=== PATIENT | female | born 1965 | race Caucasian/White ===

== ENCOUNTER 2019-01-14 22:13 | Emergency (ER) | payer OTHER ==
[~2019-01-14] VITALS: Ht 167.6 cm; Wt 86.2 kg
[~2019-01-14 22:13] MED LIST: ALPRAZOLAM0.5 MG PO; CLARITIN10 M2 PO; OMEPRAZOLE20 MG PO
--- OUTSIDE RECORDS SUMMARY | 2019-01-14 22:16 | XMS ---
PreManage Notification: ROSS BUTCHER Security Consultative Sales Associate Events No recent Security Events currently on file CRITERIA MET - PDM - [facility] - 2 Visits in 30 Days CARE PROVIDERS WALLACE CHUA [facility] 10/10/2017-Current PHONE: Unknown ARLENE Shah Physician Batter Depositor Current PHONE: [phone] LAURA LANDRUM Physician Batter Depositor Current PHONE: [phone] BLANQUITA [facility]: Critical 01/22/2018-Current Chargeback MEDICAL Access PHONE: [phone] Hayes Pepe Counselor: Mental Health 03/14/2015-Current PHONE: [phone] LAURA LANDRUM Primary Care Current PHONE: Unknown BRIANA TAYLOR Primary Care 01/23/2018-Current JAZMIN JUARES PHONE: [phone] ARLENE Shah Primary Care Current PHONE: Unknown HARSHIL GONSALEZ Primary Care 10/10/2017-Current PHONE: [phone] [facility] Care 05/10/2016-11/28/2015 [facility] PHONE: [phone] HARSHIL GONSALEZ Primary Care Current PHONE: Unknown BK TAPIA Primary Care Current PHONE: Unknown Hayes Pepe Primary Care 03/14/2015-Current PHONE: [phone] PATRICIA ALBRIGHT Primary Care Current PHONE: Unknown ELFEGO ABBASI Primary Care Current PHONE: Unknown DOMENICA RÍOS Primary Care Current PHONE: Unknown JAZZ VALLADARES Primary Care Current PHONE: Unknown Patricia Albright Primary Care Current PHONE: Unknown [facility] Primary Care 04/14/2015-Current [facility] \[facility]\ [facility]ILY [facility] PHONE: [phone] BROOK MEDINA Primary [facility] Current PHONE: Unknown Vel has no Care Guidelines for this patient. Km VISIT COUNT (12 MO.) [address] [place] [address] AKIRA Carrillo TOTAL 5 NOTE: Visits indicate total known visits. ED/UCC VISIT TRACKING (12 MO.) 01/14/2019 22:13 [facility] [place] TYPE: Emergency COMPLAINT: - ABDOMINAL PAIN 01/10/2019 10:03 [facility] [place] TYPE: Emergency DIAGNOSES: - VOMITING BLOOD 10/20/2018 15:52 [facility] [place] TYPE: Emergency DIAGNOSES: - Alcoholic gastritis without bleeding - Alcohol abuse, uncomplicated - Alcohol dependence with withdrawal, uncomplicated - ABD PAIN 10/19/2018 15:58 [facility] [place] TYPE: Emergency DIAGNOSES: - Alcohol use, unspecified with intoxication, uncomplicated - DEHYDRATION 05/17/2018 10:41 [facility] [place] TYPE: Emergency DIAGNOSES: - Diverticulosis of large intestine without perforation or abscess without bleeding - Pure hyperglyceridemia - POSS PANCREATITIS - Alcohol use, unspecified with intoxication, unspecified - Encounter for screening mammogram for malignant neoplasm of breast - Acute gastritis without bleeding INPATIENT VISIT TRACKING (12 MO.) No inpatient visits to display in this time frame [email or web address]
[2019-01-14] MEDS ORDERED: BUPROPION HCL200 M1 PO (22:36)
[2019-01-14] MEDS ORDERED: CHLORDIAZEPOXID25 MG PO (22:37)
[2019-01-14] MEDS ORDERED: TRAZODONE HCL100 MG PO (22:37)
[2019-01-14] MEDS ORDERED: CARAFATE1 GM/10 ML PO (22:38)
[2019-01-15] MEDS ORDERED: FLAGYL500 MG PO (01:49)
[2019-01-15] MEDS ORDERED: NORCO 5-325 TA1 EACH PO (01:49)
[2019-01-15] MEDS ORDERED: CIPRO500 MG PO (01:49)
== END 2019-01-15 02:05 | disposition home or self-care (01) ==
LOC: ED 22:13
DX: K57.90 Diverticulosis of intestine, part unspecified, without perforation or abscess without bleeding (principal); K21.9 Gastro-esophageal reflux disease without esophagitis; F32.9 Major depressive disorder, single episode, unspecified; F41.9 Anxiety disorder, unspecified; F17.200 Nicotine dependence, unspecified, uncomplicated; Z88.2 Allergy status to sulfonamides; Z79.899 Other long term (current) drug therapy
CPT/HCPCS: 74177; 80053; 81001; 83690; 85025; 96361; 99284-25; J1200; J1885; J2405; J3010; J7030; Q9967

== ENCOUNTER 2019-03-04 13:49 | Emergency (ER) | payer OTHER ==
[~2019-03-04] VITALS: Ht 167.6 cm; Wt 86.2 kg
--- OUTSIDE RECORDS SUMMARY | ~2019-03-04 | XMS | Clinical Summary ---
Demographics + + + | Address | [address] | | | [place] [address] | + + + | Home Phone | | + + + | Preferred Language | Unknown | + + + | Marital Status | Single | + + + | Catholic Affiliation | NON | + + + | Race | White | + + + | Ethnic Group | Not or | + + + Author + + + | Author | [facility] | + + + | Organization | [facility] | + + + | Address | Unknown | + + + | Phone | Unavailable | + + + Support + + +---------+ + | Name | Relationship | Address | Phone | + + +---------+ + | Compa Cristiana | ECON | Unknown | | + + +---------+ + Care Team Providers + +------+ + | Care Product Design Manager Name | Role | Phone | + +------+ + | Unknown | PCP | Unavailable | + +------+ + Source Comments HAM is fully live on both [facility] and [facility] Allergies Not on File Medications Not on file Active Problems Not on file Social History + +-------+ +--------+------+ | Tobacco Use | Types | Packs/Day | Years | Date | | | | | Used | | + +-------+ +--------+------+ | Never Assessed | | | | | + +-------+ [...] recent travel history available. | + + Last Filed Vital Signs Not on file Plan of Treatment +--------+---------+ + + + | Date | Type | Specialty | Care Team | Description | +--------+---------+ + + + | 04/11/ | Office | Orthopedics | Narciso Evangelista MD | | | 2019 | Visit | | [address] | | | | | | [place], | | | | | | [place] [address] | | | | | | [phone] | | | | | | | | +--------+---------+ + + + + + + + + | Health Maintenance | Due Date | Last Done | Comments | + + + + + | Influenza (Flu) | Completed | 01/26/2019, 01/24/2017, | | | vaccination | | 05/23/2013, Additional history | | | | | exists | | + + + + + | Pneumococcal | Completed | 01/26/2019, 03/09/2018, | | | vaccination | | 02/20/2013, Additional history | | | | | exists | | + + + + + Results Not on filefrom Last 3 Months Insurance + +--------+ +--------+-------+---------+--------+ | Payer | Benefi | Subscriber | Effect | Phone | Address | Type | | | t Plan | ID | zena | | | | | | / | | Dates | | | | | | Group | | | | | | + +--------+ +--------+-------+---------+--------+ | FARM OWNER OPERATOR MEDICAID | FARM OWNER OPERATOR | xxxxxxxx | | | | Medica | | | EASTER | | 019-Pr | | | id | | | [place] | | esent | | | | + +--------+ +--------+-------+---------+--------+ + +--------+ +--------+ + + | Guarantor Name | Accoun | Relation to | Date | Phone | Billing Address | | | t Type | Patient | of | | | | | | | | | | + +--------+ +--------+ + + | Nuvia Zendejas | Person | Self [birth year] | | | al/Vincent | | 1965 | [phone] | [place] [address] | | | shani | | | 2 (Home) | | + +--------+ +--------+ + +"
--- OUTSIDE RECORDS SUMMARY | ~2019-03-04 | XMS | Encounter Summary ---
Demographics + + + | Address | [address] | | | [place] [address] | + + + | Home Phone | | + + + | Preferred Language | Unknown | + + + | Marital Status | | + + + | Latter Day Affiliation | Unknown | + + + | Race | Unknown | + + + | Ethnic Group | Unknown | + + + Author + + + | Author | [facility] | | | and [place] | + + + | Organization | [facility] | | | [...] Team Providers + +------+ + | Care Private Branch Exchange Operator Name | Role | Phone | + [...] | | test, | [place] | [address] | | | | | Chronic | [address] | Phone: | | | | | joint pain | Phone: | [phone] | | | | | | [phone] | Fax: | | | | | | | [phone] | +--------+--------+ + + + + Encounter Details +--------+---------+ + + + | Date | Type | Department | Care Team | Description | +--------+---------+ + + + | 01/24/ | Office | [facility] | Tamara Way MD | Polyarthralgia | | 2019 | Visit | RHEUMATOLOGY [address] | (Primary Dx); | | [address] | [address], [place] | Primary | | | | [place] | [address] | osteoarthritis | | | | [address] | | involving multiple | | | | [phone] | | joints | +--------+---------+ + + [...] + +---------+ + | Alcohol Use | Drinks/We | oz/Week | Comments | | | ek | | | + + +---------+ + | Not [...] Filed Vital Signs + + + + | Vital Sign | Reading | Time Taken | + + + + | Blood Pressure | 125/84 | 01/24/2019744 PDT | + + + + | Pulse | 76 | 01/24/2019744 PDT | + + + + | Temperature | 36.7 C (98 F) | 01/24/2019744 PDT | + + + + | Respiratory Rate | - | - | + + + + | Oxygen Saturation | - | - | + + + + | Inhaled Oxygen | - | - | | Concentration | | | + + + + | Weight | 85 kg (187 lb 6.4 | 01/24/2019 0745 PDT | | | oz) | | + + + + | Height | - | - | + + + + | Body Mass Index | 27.67 | 11/16/2018 1313 PDT | + + + + documented in this encounter Patient Instructions Patient Instructions Tiffany Irene, Chemical Process Engineer - 01/24/2019 7:50 PDTWe hope th at you have experienced exceptional care today and that you found our service to be courteou s and helpful. If you have any questions or need medication refills you can send us a message/request u StyleZen or call our office at [phone]. To reach my MA-C type extension [phone]. If you are unable to reach a nurse during clinic hours, please leave a detailed message. We check our messages often and return calls in a timely manner during clinic hours. Orders for labs or imaging: Please remember that will only call you if something of concern needs to be addressed, otherwise all result will be discussed at your next offic e visit. You can also look at your results on Kchart. If you are experiencing an emergency, please call 911 documented in this encounter Progress Notes Tamara Way MD - 01/24/2019 0750 PDTFormatting of this note might be different from the or iginal. Subjective: Reason for referral: positive dsDNA History of presenting Illness: Nuvia Zendejas is a 53 y.o. female polysubstance abuse, Chronic pain, reactive airway wi who came to rheumatology clinic for new [...] hepatitis C virus (HCV)/(AIDS), L ymphoma, Sarcoidosis, Ygvmu-buhtaz-ybqm disease, Recent use of medications with anticholiner [...] mg per tablet Take 1 tablet by m outh. meloxicam (MOBIC) 15 mg tablet Take 15 mg [...] H/O psychiatric care H/O: pneumonia Suicide attempt (HCC) Past Surgical History: Procedure Laterality Date SECTION [...] normal Imaging: The X-rays were reviewed in [facility] Lab Review: The labs were reviewed in [facility] Assessment and Plan: Nuvia was seen today [...] symptoms This progress note was dictated using [employer]anted [employer] voice recognition software. Document was revie wed at time of dictation but pxebs-z-inwf errors may be present. Please call with any quest ions or clarifications docuromeo nick in this encounter Plan of Treatment +--------+---------+ + + + | Date | Type | Specialty | Care Team | Description | +--------+---------+ + + + | 03/22/ | Office | Oncology | Kimberly, | | | 2019 | Visit | | Juan R Gray MD | | | | | | [address] | | | | | | [place] | | | | | | [address] | | | | | | | | +--------+---------+ + + + + +--------+ + + | Name | Priori | Associated Diagnoses | Order Schedule | | | ty | | | + +--------+ + + | XR Hand Left 2 Vw | Routin | Polyarthralgia | Expected: | | | e | | 01/24/2019, Expires: | | | | | 01/25/2020 | + +--------+ + + | XR Hand Right 2 Vw | Routin | Polyarthralgia | Expected: | | | e | | 01/24/2019, Expires: | | | | | 01/25/2020 | + +--------+ + + | XR Foot Left 3 + Vw | Routin | Polyarthralgia | Expected: | | | e | | 01/24/2019, Expires: | | | | | 01/25/2020 | + +--------+ + + | XR Foot Right 3 + Vw | Routin | Polyarthralgia | Expected: | | | e | | 01/24/2019, Expires: | | | | | 01/25/2020 | + +--------+ + + documented as of this encounter Results SS-B LA Ab, IgG, Serum (01/24/2019 8:13 PDT) + + + + + + | Component | Value | Ref Range | Performed | Pathologist | | | | | At | Signature | + + + + + + | SS-B | <0.2Comment: Testing | 0.0 - 0.9 AI | REFERENCE | | | Autoantibod | performed at [facility], [address] | | LAB | | | y | [facility] | | [place] | | | | [place] [address] | | LABORATORY | | + + + + + + + + | Specimen | + + | Blood | + + + + + + + | Performing | Address | City/State/Zipcode | Phone Number | | Organization | | | | + + + + + | REFERENCE LAB | [address] | [place] [address] | [phone] | | [facility] | Blvd[address] | | | | LABORATORY | | | | + + + + + | REFERENCE LAB | [address] | [place] [address] | | | [place] | Blvd[address] | | | | LABORATORY | | | | + + + + + SS-A RO Ab,IgG, Serum (01/24/2019 8:13 PDT) + + + + + + | Component | Value | Ref Range | Performed | Pathologist | | | | | At | Signature | + + + + + + | SS-A | <0.2Comment: Testing | 0.0 - 0.9 AI | REFERENCE | | | Autoantibod | performed at [facility], [address] | | LAB | | | y | [facility] | | [place] | | | | [place] [address] | | LABORATORY | | + + + + + + + + | Specimen | + + | Blood | + + + + + + + | Performing | Address | City/State/Zipcode | Phone Number | | Organization | | | | + + + + + | REFERENCE LAB | [address] | [place] [address] | [phone] | | [facility] | Blvd[address] | | | | LABORATORY | | | | + + + + + | REFERENCE LAB | [address] | [place] [address] | | | [facility] | Blvd[address] | | | | LABORATORY | | | | + + + + + CCP Antibodies, IgG IgA (01/24/2019 8:13 PDT) + + + + + + | Component | Value | Ref Range | Performed | Pathologist | | | | | At | Signature | + + + + + + | Cyclic | 9Comment: | 0 - 19 units | REFERENCE | | | citrullinat | | | LAB | | | ed peptide | | | [facility] | | | Ab.IgA+IgG | | | LABORATORY | | | | Negative | | | | | | | | | | | | <20 | | | | | | | | | | | | Weak | | | | | | positive 20 - | | | | | | | | | | | | 39 | | | | | | | | | | | | Moderate | | | | | | positive 40 - | | | | | | 59 | | | | | | | | | | | | Strong | | | | | | positive | | | | | | >59Testing performed by | | | | | | [facility], [facility] | | | | | | [address] [address] | | | | | | [place] [address] | | | | + + + + + + + + | Specimen | + + | Blood | + + + + + + + | Performing | Address | City/State/Zipcode | Phone Number | | Organization | | | | + + + + + | REFERENCE LAB | [address] | [place] [address] | [phone] | | [facility] | Blvd. | | | | LABORATORY | | | | + + + + + | REFERENCE LAB | [address] | [place] [address] | | | [facility] | Blvd[address] | | | | LABORATORY | | | | + + + + + Sedimentation Rate (01/24/2019 8:13 PDT) + + + + + + | Component | Value | Ref Range | Performed | Pathologist | | | | | At | Signature | + + + + + + | ESR | 14Comment: Testing | 0 - 30 mm/Hr | REFERENCE | | | | performed at [facility];[address] | | LAB | | | | [place] | | [facility] | | | | [address];[place] [address] | | LABORATORY | | + + + + + + + + | Specimen | + + | Blood | + + + + + + + | Performing | Address | City/State/Zipcode | Phone Number | | Organization | | | | + + + + + | REFERENCE LAB | [address] [place] [address] | [place] [address] | [phone] | | [facility] | Blvd. | | | | LABORATORY | | | | + + + + + | REFERENCE LAB | [address] [place] [address] | [place] [address] | | | [facility] | Blvd. | | | | LABORATORY | | | | + + + + + C-Reactive Protein (01/24/2019 8:13 PDT) + + + + + + | Component | Value | Ref Range | Performed | Pathologist | | | | | At | Signature | + + + + + + | CRP | <0.3Comment: Testing | <0.5 mg/dL | REFERENCE | | | | performed at [facility];[address] | | LAB | | | | [place] | | [facility] | | | | [address];[place] [address] | | LABORATORY | | + + + + + + + + | Specimen | + + | Blood | + + + + + + + | Performing | Address | City/State/Zipcode | Phone Number | | Organization | | | | + + + + + | REFERENCE LAB | [address] | [place] [address] | [phone] | | [facility] | Blvd[address] | | | | LABORATORY | | | | + + + + + | REFERENCE LAB | [address] | [place] [address] | | | [facility] | Blvd. | | | | LABORATORY | | | | + + + + + Comprehensive Metabolic Panel (01/24/2019 8:13 PDT) + + + + + + [...] | | | | | performed at [facility];[address] | | | | | | [address] | | | | | | [address];[place] [address] | | | | | | | | | | + + + + + + + + | Specimen | + + | Blood | + + + + + + + | Performing | Address | City/State/Zipcode | Phone Number | | Organization | | | | + + + + + | REFERENCE LAB | [address] [place] [address] | [place] [address] | [phone] | | [facility] | Blvd[address] | | | | LABORATORY | | | | + + + + + | REFERENCE LAB | [address] [place] [address] | [place] [address] | | | [facility] | Blvd[address] | | | | LABORATORY | | | | + + + + + CBC with Differential (01/24/2019 8:13 PDT) + + + + + + [...] | | | Absolute | performed at [facility];[address] | [address] | LAB | | | | [facility] | | [place] | | | | [address]vd;[place] [address] | | LABORATORY | | + + + + + + + + | Specimen | + + | Blood | + + + + + + + | Performing | Address | City/State/Zipcode | Phone Number | | Organization | | | | + + + + + | REFERENCE LAB | [address] [place] [address] | [place] [address] | [phone] | | [facility] | Blvd. | | | | LABORATORY | | | | + + + + + | REFERENCE LAB | [address] [place] [address] | [place] [address] | | | [facility] | Blvd[address] | [...]
--- OUTSIDE RECORDS SUMMARY | ~2019-03-04 | XMS | Encounter Summary ---
Demographics + + + | Address | [address] | | | [place] [address] | + + + | Home Phone | | + + + | Preferred Language | Unknown | + + + | Marital Status | | + + + | Muslim Affiliation | Unknown | + + + | Race | Unknown | + + + | Ethnic Group | Unknown | + + + Author + + + | Author | [facility] | | | and [place] | + + + | Organization | [facility] | | | [...] Team Providers + +------+ + | Care Thermit Welding Machine Operator Name | Role | Phone | + +------+ + | Bhakti Dietz PA-C | PCP | | + +------+ + Encounter Details +--------+ + + + + | Date | Type | Department | Care Team | Description | +--------+ + + + + | 12/15/ | Orders Only | [facility] | Kimberly, | Other specified | | 2019 | | HEMATOLOGY AND | Juan R Gray MD | diseases of blood | | | | ONCOLOGY [place] | [address] | and blood-forming | | | | [address] | [place] | organs; Other | | | | [place], [place] | [address] | neutropenia (HCC) | | | | [address] | | | | | | [phone] | | | +--------+ + + + [...] | Oncology | Kimberly, | | | 2018 | Visit | | Juan R Gray MD | | | | | | [address] | | | | | | [place] | | | | | | [address] | | | | | | | | +--------+---------+ + + + + +--------+ + + | Name | Priori | Associated Diagnoses | Order Schedule | | | ty | | | + +--------+ + + | Vitamin B-12 and Folate | Routin | Other specified | Expected: | | | e | diseases of blood | 02/16/2019, Expires: | | | | and blood-forming | 11/17/2019 | | | | organs Other | | | | | neutropenia (HCC) | | + +--------+ + + | Ferritin | Routin | Other specified | Expected: | | | e | diseases of blood | 02/16/2019, Expires: | | | | and blood-forming | 11/17/2019 | | | | organs Other | | | | | neutropenia (HCC) | | + +--------+ + + | Iron and Iron Binding Capacity | Routin | Other specified | Expected: | | | e | diseases of blood | 02/16/2019, Expires: | | | | and blood-forming | 11/17/2019 | | | | organs Other | | | | | neutropenia (HCC) | | + +--------+ + + documented as of this encounter Visit Diagnoses + + | Diagnosis | + + | Other specified diseases of blood and blood-forming organs | + + | Other neutropenia (HCC) Other neutropenia | + + documented in this encounter"
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
--- OUTSIDE RECORDS SUMMARY | ~2019-03-04 | XMS | Encounter Summary ---
Demographics + + + | Address | [address] | | | [place] [address] | + + + | Home Phone | | + + + | Preferred Language | Unknown | + + + | Marital Status | | + + + | Worship Affiliation | Unknown | + + + | Race | Unknown | + + + | Ethnic Group | Unknown | + + + Author + + + | Author | [facility] | | | and [place] | + + + | Organization | [facility] | | | [...] Team Providers + +------+ + | Care Painter Helper Spray Name | Role | Phone | + [...] 2019 | | [address] | [place] | | | | | [place] | | | | | | [address] | | | | | | [phone] | | | +--------+ + + + [...] | | | | | | [place] | | | | | | [id number] | | | | | | | [...] encounter Results CBC with Differential (01/24/2019 8:13 PDT) + [...] | | | Absolute | performed at [facility];[address] | [address] | LAB | | | | [facility] | | [facility] | | | | Blvd;[place] [address] | | LABORATORY | | + + + + + + + + | Specimen | + + | Blood | + + + + + + + | Performing | Address | City/State/Zipcode | Phone Number | | Organization | | | | + + + + + | REFERENCE LAB | [address] [place] [address] | [place] [address] | [phone] | | [facility] | Blvd. | | | | LABORATORY | | | | + + + + + | REFERENCE LAB | [address] [place] [address] | [place] [address] | | | [facility] | Blvd. | [...] | | | | | | MDRD IDOK traceable | | | | | | equation.Testing | | | | | | performed at [facility];[address] | | | | | | [facility] | | | | | | [facility];[place] [address] | | | | | | | | | | + + + + + + + + | Specimen | + + | Blood | + + + + + + + | Performing | Address | City/State/Zipcode | Phone Number | | Organization | | | | + + + + + | REFERENCE LAB | [address] [place] [address] | [place] [address] | [phone] | | [facility] | Blvd. | | | | LABORATORY | | | | + + + + + | REFERENCE LAB | [address] [place] [address] | [place] [address] | | | [facility] | Blvd. | [...] REFERENCE | | | | performed at [facility];[address] | | LAB | | | | [place] | | [facility] | | | | Blvd;[place] [address] | | LABORATORY | | + + + + + + + + | Specimen | + + | Blood | + + + + + + + | Performing | Address | City/State/Zipcode | Phone Number | | Organization | | | | + + + + + | REFERENCE LAB | [address] | [place] [address] | [phone] | | [facility] | Blvd. | | | | LABORATORY | | | | + + + + + | REFERENCE LAB | [address] [facility] | [place] [address] | | | [facility] | Blvd. | [...] [facility] | | | | Blvd;[place] [address] | | LABORATORY | | + + + + + + + + | Specimen | + + | Blood | + + + + + + + | Performing | Address | City/State/Zipcode | Phone Number | | Organization | | | | + + + + + | REFERENCE LAB | [address] [place] [address] | [place] [address] | [phone] | | [facility] | Blvd. | | | | LABORATORY | | | | + + + + + | REFERENCE LAB | [address] [place] [address] | [place] [address] | | | [facility] | Blvd. | [...] by | | | | | | [facility], [facility] | | | | | | [place] | | | | | | [place] [address] | | | | + + + + + + + + | Specimen | + + | Blood | + + + + + + + | Performing | Address | City/State/Zipcode | Phone Number | | Organization | | | | + + + + + | REFERENCE LAB | [address] [facility] | [place] [address] | [phone] | | [facility] | Blvd. | | | | LABORATORY | | | | + + + + + | REFERENCE LAB | [address] [facility] | [place] [address] | | | [facility] | Blvd. | [...] | | | Autoantibod | performed at [facility], [address] | | LAB | | | y | [facility] | | [facility] | | | | [place] [address] | | LABORATORY | | + + + + + + + + | Specimen | + + | Blood | + + + + + + + | Performing | Address | City/State/Zipcode | Phone Number | | Organization | | | | + + + + + | REFERENCE LAB | [address] [place] [address] | [place] [address] | [phone] | | [facility] | Blvd. | | | | LABORATORY | | | | + + + + + | REFERENCE LAB | [address] [place] [address] | [place] [address] | | | [facility] | Blvd. | [...] | | | Autoantibod | performed at [facility], [address] | | LAB | | | y | [facility] | | [facility] | | | | [place] [address] | | LABORATORY | | + + + + + + + + | Specimen | + + | Blood | + + + + + + + | Performing | Address | City/State/Zipcode | Phone Number | | Organization | | | | + + + + + | REFERENCE LAB | [address] [facility] | [place] [address] | [phone] | | [facility] | Blvd. | | | | LABORATORY | | | | + + + + + | REFERENCE LAB | [address] [facility] | [place] [address] | | | [facility] | Blvd. | | | | LABORATORY | | | | + + + + + documented in this encounter Visit Diagnoses + + | Diagnosis | + + | Polyarthralgia Pain in joint, multiple sites | + + documented in this encounter"
--- OUTSIDE RECORDS SUMMARY | ~2019-03-04 | XMS | Clinical Summary ---
Demographics + + + | Address | [address] | | | [place] [address] | + + + | Home Phone | | + + + | Preferred Language | Unknown | + + + | Marital Status | Single | + + + | Congregation Affiliation | NON | + + + | Race | White | + + + | Ethnic Group | Not or | + + + Author + + + | Author | [facility] | + + + | Organization | [facility] | + + + | Address | Unknown | + + + | Phone | Unavailable | + + + Support + + +---------+ + | Name | Relationship | Address | Phone | + + +---------+ + | Compa Cristiana | ECON | Unknown | | + + +---------+ + Care Team Providers + +------+ + | Care Detective And Intelligence Analyst Name | Role | Phone | + +------+ + | Unknown | PCP | Unavailable | + +------+ + Source Comments HAM is fully live on both [facility] and [facility] InPatient.[facility] Allergies Not on File Medications Not [...] | | | | | [place], | | | | | | [place] [address] | | | | | | [phone] | | | | | | | [...] | | | + +--------+ +--------+-------+---------+--------+ | TEST [employer] MEDICAID | TEST BAKER | xxxxxxxx | | | | Medica [...] | 1965 | [phone] | [place] [address] | | | shani | | | 2 (Home) | | + +--------+ +--------+ + +"
--- OUTSIDE RECORDS SUMMARY | ~2019-03-04 | XMS | Encounter Summary ---
Demographics + + + | Address | [address] | | | [place] [address] | + + + | Home Phone | | + + + | Preferred Language | Unknown | + + + | Marital Status | | + + + | Jehovah'S Witness Affiliation | Unknown | + + + | Race | Unknown | + + + | Ethnic Group | Unknown | + + + Author + + + | Author | [facility] | | | and [place] | + + + | Organization | [facility] | | | [...] Team Providers + +------+ + | Care Ultra Sound Technician Name | Role | Phone | + [...] | | double | GAMA Sandhu | [address] | | | | | stranded DNA | [address] | [address] | | | | | antibody | St | [place] | | | | | test, | [place], [place] | [address] | | | | | Chronic | [address] | Phone: | | | | | joint pain | Phone: | [phone] | | | | | | [phone] | Fax: | | | | | | | [phone] | +--------+--------+ + + + + Encounter Details +--------+---------+ + + + | Date | Type | Department | Care Team | Description | +--------+---------+ + + + | 02/21/ | Office | [facility] | Roge Chow, | Polyarthralgia | | 2019 | Visit | RHEUMATOLOGY [address] | PA-C [address] | (Primary Dx); High | | | | [address] | risk medication use; | | | | [place] | [place] [address] | Osteoarthritis, | | | | [address] | [phone] | unspecified | | | | [phone] | | osteoarthritis type, | | | [...] | 86.2 kg (190 lb) | 02/21/2019 1322 PDT | + + + + | Height | - | - | + + + + | Body Mass Index | 28.06 | 11/16/2018 1313 PDT | + + + + documented in this encounter Patient Instructions Patient Instructions Tamara Boles, Mobile Unit Assistant - 02/21/2019 13:20 PDTWe hope t hat you have experienced exceptional care today and that you found our service to be courteo us and helpful. ? If you have any questions/concerns or need medication refills you can send us a message/r equest using [employer] or by calling our office at [phone]. o If you would like to reach my director medical writing, Paula Boles please call [phone] Ext: [phone] ? If you are unable to reach [...] can also look at your results on [employer]. If you are experiencing an emergency, please call 911 documented in this encounter Progress Notes Roge Chow PA-C - 02/21/2019 1320 PDT Subjective: Patient ID: Nuvia Zendejas is a [...] hepatitis C virus (HCV)/(AIDS), L ymphoma, Sarcoidosis, Bwhrr-qmsoyn-rjuj disease, Recent use of medications with anticholiner [...] numbness. Psychiatric/Behavioral: The patient is not nervous/anxious. I, Roge Salvos PA-C, reviewed the above ROS. Past Medical History: Diagnosis Date Alcoholism (HCC) Arthritis Chemical dependency ([facility]) Depression H/O bronchitis H/O psychiatric care H/O: pneumonia Suicide attempt ([facility]) Current Outpatient Medications: albuterol 90 mcg/puff inhaler, [...] | Wt 86.2 kg (190 lb) | [place] stfeeding? No | BMI 28.06 kg/m Physical [...] 360 hour(s)). [facility] as well as chart notes [...] involved in today's visit. Procedure Documentation: Procedures documented i n this encounter Plan of Treatment +--------+---------+ + [...] [place] | | | | | | [address] | | | | | | | [...]
--- OUTSIDE RECORDS SUMMARY | ~2019-03-04 | XMS | Encounter Summary ---
Demographics + + + | Address | [address] | | | [place] [address] | + + + | Home Phone | | + + + | Preferred Language | Unknown | + + + | Marital Status | | + + + | Restoration Affiliation | Unknown | + + + | Race | Unknown | + + + | Ethnic Group | Unknown | + + + Author + + + | Author | [facility] | | | and [place] | + + + | Organization | [facility] | | | [...] Team Providers + +------+ + | Care Access Tech Name | Role | Phone | + +------+ + | Bhakti Dietz PA-C | PCP | | + +------+ + Encounter Details +--------+ + + + + | Date | Type | Department | Care Team | Description | +--------+ + + + + | 12/15/ | Orders Only | [facility] | Kimberly, | Other specified | | 2019 | | HEMATOLOGY AND | Juan R Gray MD | diseases of blood | | | | ONCOLOGY [place] | [address] | and blood-forming | | | | [address] | [place] | organs; Other | | | | [place], [place] | [address] | neutropenia (HCC) | | | | [address] | | | | | | [phone] | | | +--------+ + + + [...] [place] | | | | | | [address] | | | | | | | [...]
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
--- OUTSIDE RECORDS SUMMARY | ~2019-03-04 | XMS | Encounter Summary ---
Demographics + + + | Address | [address] | | | [place] [address] | + + + | Home Phone | | + + + | Preferred Language | Unknown | + + + | Marital Status | | + + + | Lutheran Affiliation | Unknown | + + + | Race | Unknown | + + + | Ethnic Group | Unknown | + + + Author + + + | Author | [facility] | | | and [place] | + + + | Organization | [facility] | | | [...] Team Providers + +------+ + | Care Separator Tender Name | Role | Phone | [...] 2019 | | [address] | Artist Agent | | | | | [place] | | | | | | [address] | | | | | | [phone] | | | +--------+ + + + [...] [place] | | | | | | [id number] | | | | | | | [...] | | | Absolute | performed at [facility];[address] | K/uL | LAB | | | | [facility] | | [facility] | | | | Blvd;[place] [address] | | LABORATORY | | + + + + + + + + | Specimen | + + | Blood | + + + + + + + | Performing | Address | City/State/Zipcode | Phone Number | | Organization | | | | + + + + + | REFERENCE LAB | [address] [place] [address] | [place] [address] | [phone] | | [facility] | Blvd. | | | | LABORATORY | | | | + + + + + | REFERENCE LAB | [address] [place] [address] | [place] [address] | | | [facility] | Blvd. | [...] | | | | | | MDRD IDWV traceable | | | | | | equation.Testing | | | | | | performed at [facility];[address] | | | | | | [facility] | | | | | | [facility];[place] [address] | | | | | | | | | | + + + + + + + + | Specimen | + + | Blood | + + + + + + + | Performing | Address | City/State/Zipcode | Phone Number | | Organization | | | | + + + + + | REFERENCE LAB | [address] [place] [address] | [place] [address] | [phone] | | [facility] | Blvd. | | | | LABORATORY | | | | + + + + + | REFERENCE LAB | [address] [place] [address] | [place] [address] | | | [facility] | Blvd. | [...] REFERENCE | | | | performed at [facility];[address] | | LAB | | | | [place] | | [facility] | | | | Blvd;[place] [address] | | LABORATORY | | + + + + + + + + | Specimen | + + | Blood | + + + + + + + | Performing | Address | City/State/Zipcode | Phone Number | | Organization | | | | + + + + + | REFERENCE LAB | [address] | [place] [address] | [phone] | | [facility] | Blvd. | | | | LABORATORY | | | | + + + + + | REFERENCE LAB | [address] [facility] | [place] [address] | | | [facility] | Blvd. | [...] [facility] | | | | Blvd;[place] [address] | | LABORATORY | | + + + + + + + + | Specimen | + + | Blood | + + + + + + + | Performing | Address | City/State/Zipcode | Phone Number | | Organization | | | | + + + + + | REFERENCE LAB | [address] [place] [address] | [place] [address] | [phone] | | [facility] | Blvd. | | | | LABORATORY | | | | + + + + + | REFERENCE LAB | [address] [place] [address] | [place] [address] | | | [facility] | Blvd. | [...] | | | | | | [facility] [place] | | | | | | [place] | | | | | | [place] [address] | | | | + + + + + + + + | Specimen | + + | Blood | + + + + + + + | Performing | Address | City/State/Zipcode | Phone Number | | Organization | | | | + + + + + | REFERENCE LAB | [address] [facility] | [place] [address] | [phone] | | [facility] | Blvd. | | | | LABORATORY | | | | + + + + + | REFERENCE LAB | [address] [facility] | [place] [address] | | | [facility] | Blvd. [...] | | | Autoantibod | performed at [facility], [address] | | LAB | | | y | [facility] | | [facility] | | | | [place] [address] | | LABORATORY | | + + + + + + + + | Specimen | + + | Blood | + + + + + + + | Performing | Address | City/State/Zipcode | Phone Number | | Organization | | | | + + + + + | REFERENCE LAB | [address] [place] [address] | [place] [address] | [phone] | | [facility] | Blvd. | | | | LABORATORY | | | | + + + + + | REFERENCE LAB | [address] [place] [address] | [place] [address] | | | [facility] | Blvd. | [...] | | | Autoantibod | performed at [facility], [address] | | LAB | | | y | [facility] | | [facility] | | | | [place] [address] | | LABORATORY | | + + + + + + + + | Specimen | + + | Blood | + + + + + + + | Performing | Address | City/State/Zipcode | Phone Number | | Organization | | | | + + + + + | REFERENCE LAB | [address] [facility] | [place] [address] | [phone] | | [facility] | Blvd. | | | | LABORATORY | | | | + + + + + | REFERENCE LAB | [address] [facility] | [place] [address] | | | [facility] | Blvd. | | | | LABORATORY | | | | + + + + + documented in this encounter Visit Diagnoses + + | Diagnosis | + + | Polyarthralgia Pain in joint, multiple sites | + + documented in this encounter"
--- OUTSIDE RECORDS SUMMARY | ~2019-03-04 | XMS | Encounter Summary ---
Demographics + + + | Address | [address] | | | [place] [address] | + + + | Home Phone | | + + + | Preferred Language | Unknown | + + + | Marital Status | | + + + | Pentecostal Affiliation | Unknown | + + + | Race | Unknown | + + + | Ethnic Group | Unknown | + + + Author + + + | Author | [facility] (Historical as of | | | 12-16-18) | + + + | Organization | [facility] (Historical as of | | | 12-16-18) | + + + | Address | Unknown | + + + | Phone | Unavailable | + + + Support + + +---------+ + | Name | Relationship | Address | Phone | + + +---------+ + | Compa Zendejas | ECON | Unknown | | + + +---------+ + Care Team Providers + +------+ + | Care Bedspread Inspector Name | Role | Phone | + +------+ + | Bhakti Dietz PA-C | PCP | | + +------+ + Reason for Visit + + + | Reason | Comments | + + + | Referral | | + + + Encounter Details +--------+ + + + + | Date | Type | Department | Care Team | Description | +--------+ + + + + | 12/15/ | Documentati | [facility] | Rheum Referrals, | Referral | | 2019 | on Only | Rheumatology [address] | | | | | [address] | [place], [place] | | | | | [place] [address] | [address] | | | | | [phone] | | | +--------+ + + + [...] | | | + +---+---+---+ + + + | Sex Assigned at | Date Recorded | | | | + + + | Not on file | | + + + as of this encounter Plan of Treatment +--------+---------+ + + + | Date | Type | Specialty | Care Team | Description | +--------+---------+ + + + | 03/22/ | Office | Hematology and | Kimberly, | | | 2018 | Visit | Oncology | Juan R Gray MD | | | | | | [address] | | | | | | [place] | | | | | | [address] | | | | | | | | +--------+---------+ + + + | 05/28/ | Office | Rheumatology | Lalita Flaherty | | | 2020 | Visit | | MD Josh [address] | | | | | | [address] | | | | | | [place] [address] | | | | | | [phone] | | | | | | | | +--------+---------+ + + + as of this encounter Visit Diagnoses Not on filein this encounter"
--- OUTSIDE RECORDS SUMMARY | ~2019-03-04 | XMS | Encounter Summary ---
Demographics + + + | Address | [address] | | | [place] [address] | + + + | Home Phone | | + + + | Preferred Language | Unknown | + + + | Marital Status | | + + + | Hoahaoism Affiliation | Unknown | + + + | Race | Unknown | + + + | Ethnic Group | Unknown | + + + Author + + + | Author | [facility] [employer] [facility] (Historical as of | | | 12-16-18) | + + + | Organization | [facility] (Historical as of | | | 12-16-18) [...] Team Providers + +------+ + | Care Director Of Intercollegiate Athletics Name | Role | Phone | + [...] + + | 12/15/ | Documentati | [facility] | Rheum Referrals, | Referral | | 2019 | on Only | Rheumatology [address] | [address] | | | | | [address] | [address] [place], [place] | | | | | [place] [address] | [address] | | | | | [phone] | | | +--------+ + + + [...] [place] | | | | | | [address] | | | | | | | | +--------+---------+ + + + | 05/28/ | Office | Rheumatology | Lalita Flaherty | | | 2020 | Visit | | MD Josh [address] | | | | | | [address] | | | | | | [place] [address] | | | | | | [phone] | | | | | | | | +--------+---------+ + + + as of this encounter Visit Diagnoses Not on filein this encounter"
--- OUTSIDE RECORDS SUMMARY | ~2019-03-04 | XMS | Encounter Summary ---
Demographics + + + | Address | [address] | | | [place] [address] | + + + | Home Phone | | + + + | Preferred Language | Unknown | + + + | Marital Status | | + + + | Episcopalian Affiliation | Unknown | + + + | Race | Unknown | + + + | Ethnic Group | Unknown | + + + Author + + + | Author | [facility] | | | and [place] | + + + | Organization | [facility] | | | [...] Team Providers + +------+ + | Care Global Category Manager Name | Role | Phone | [...] | | test, | [place], [place] | [address] | | | | | Chronic | [address] | Phone: | | | | | joint pain | Phone: | [phone] | | | | | | [phone] | Fax: | | | | | | | [phone] | +--------+--------+ + + + + Encounter Details +--------+---------+ + + + | Date | Type | Department | Care Team | Description | +--------+---------+ + + + | 01/24/ | Office | [facility] | Tamara Way MD | Polyarthralgia | | 2019 | Visit | RHEUMATOLOGY [address] | (Primary Dx); | | | [address] | [address] [place], [place] | Primary | | | | [place], [place] | [address] | osteoarthritis | | | | [address] | | involving multiple | | | | [phone] | | joints | +--------+---------+ + + [...] encounter Patient Instructions Patient Instructions Tiffany Irene, Wire Wrapper Machine Operator - 01/24/2019 7:50 PDTWe hope th at you have experienced exceptional care today and that you found our service to be courteou s and helpful. If you have any questions or need medication refills you can send us a message/request u [employer] or call our office at [phone]. To reach my MA-C type extension [phone]. If you are unable to reach a [...] hepatitis C virus (HCV)/(AIDS), L ymphoma, Sarcoidosis, Vdkwx-wxtinq-fspq disease, Recent use of medications with anticholiner [...] normal Imaging: The X-rays were reviewed in [facility] Lab Review: The labs were reviewed in [facility] Assessment and Plan: Nuvia was seen [...] symptoms This progress note was dictated using [employer] voice recognition software. Document was revie wed at time of dictation but [id number]-[id number] errors may be present. Please call with [...] [place] | | | | | | [address] | | | | | | | [...] | | | Autoantibod | performed at [facility], [address] | | LAB | | | y | [facility] | | [place] | | | | [place] [address] | | LABORATORY | | + + + + + + + + | Specimen | + + | Blood | + + + + + + + | Performing | Address | City/State/Zipcode | Phone Number | | Organization | | | | + + + + + | REFERENCE LAB | [address] | [place] [address] | [phone] | | [facility] | Blvd[address] | | | | LABORATORY | | | | + + + + + | REFERENCE LAB | [address] [facility] | [place] [address] | | | [facility] | Blvd. | [...] | LAB | | | y | [facility] | | [place] | | | | [place] [address] | | LABORATORY | | + + + + + + + + | Specimen | + + | Blood | + + + + + + + | Performing | Address | City/State/Zipcode | Phone Number | | Organization | | | | + + + + + | REFERENCE LAB | [address] | [place] [address] | [phone] | | [facility] | Blvd. | | | | LABORATORY | | | | + + + + + | REFERENCE LAB | [address] [facility] [address] | [place] [address] | | | [facility] | Blvd. | [...] | | | | | | [facility], [facility] | | | | | | [place] | | | | | | [place] [address] | | | | + + + + + + + + | Specimen | + + | Blood | + + + + + + + | Performing | Address | City/State/Zipcode | Phone Number | | Organization | | | | + + + + + | REFERENCE LAB | [address] [facility] | [place] [address] | [phone] | | [facility] | Blvd. | | | | LABORATORY | | | | + + + + + | REFERENCE LAB | [address] [facility] | [place] [address] | | | [facility] | Blvd. | [...] REFERENCE | | | | performed at [facility];[address] | | LAB | | | | [place] | | [facility] | | | | [place]vd;[place] [address] | | LABORATORY | | + + + + + + + + | Specimen | + + | Blood | + + + + + + + | Performing | Address | City/State/Zipcode | Phone Number | | Organization | | | | + + + + + | REFERENCE LAB | [address] [place] [address] | [place] [address] | [phone] | | [facility] | Blvd. | | | | LABORATORY | | | | + + + + + | REFERENCE LAB | [address] [place] [address] | [place] [address] | | | [facility] | Blvd. | [...] REFERENCE | | | | performed at [facility];[address] | | LAB | | | | [place] | | [facility] | | | | Blvd;[place] [address] | | LABORATORY | | + + + + + + + + | Specimen | + + | Blood | + + + + + + + | Performing | Address | City/State/Zipcode | Phone Number | | Organization | | | | + + + + + | REFERENCE LAB | [address] [facility] | [place] [address] | [phone] | | [facility] | Blvd[address] | | | | LABORATORY | | | | + + + + + | REFERENCE LAB | [address] | [place] [address] | | | [facility] | Blvd. | [...] | | | | | performed at [facility];[address] | | | | | | [place] | | | | | | [place] [address] | | | | | | | | | | + + + + + + + + | Specimen | + + | Blood | + + + + + + + | Performing | Address | City/State/Zipcode | Phone Number | | Organization | | | | + + + + + | REFERENCE LAB | [address] [place] [address] | [place] [address] | [phone] | | [facility] | Blvd. | | | | LABORATORY | | | | + + + + + | REFERENCE LAB | [address] [place] [address] | [place] [address] | | | [facility] | Blvd. | [...] | | | Absolute | performed at [facility];[address] | [address] | LAB | | | | [facility] | | [facility] | | | | Blvd;[place] [address] | | LABORATORY | | + + + + + + + + | Specimen | + + | Blood | + + + + + + + | Performing | Address | City/State/Zipcode | Phone Number | | Organization | | | | + + + + + | REFERENCE LAB | [address] [place] [address] | [place] [address] | [phone] | | [facility] | Blvd. | | | | LABORATORY | | | | + + + + + | REFERENCE LAB | [address] [place] [address] | [place] [address] | | | [facility] | Blvd. | [...]
--- OUTSIDE RECORDS SUMMARY | ~2019-03-04 | XMS | Encounter Summary ---
Demographics + + + | Address | [address] | | | [place] [address] | + + + | Home Phone | | + + + | Preferred Language | Unknown | + + + | Marital Status | | + + + | Scientology Affiliation | Unknown | + + + | Race | Unknown | + + + | Ethnic Group | Unknown | + + + Author + + + | Author | [facility] | | | and Rub[place] | + + + | Organization | [facility] | | | [...] Team Providers + +------+ + | Care Flight Crew Scheduler Name | Role | Phone | + [...] | | double | GAMA Sandhu | [address] | | | | | stranded DNA | [address] | [address] | | | | | antibody | St | [place] | | | | | test, | [place], [place] | [address] | | | | | Chronic | [address] | Phone: | | | | | joint pain | Phone: | [phone] | | | | | | [phone] | Fax: | | | | | | | [phone] | +--------+--------+ + + + + Encounter Details +--------+---------+ + + + | Date | Type | Department | Care Team | Description | +--------+---------+ + + + | 02/21/ | Office | [facility] | Roge Chow, | Polyarthralgia | | 2019 | Visit | RHEUMATOLOGY [address] | PA-C [address] | (Primary Dx); High | | | | [address] | [address] | risk medication use; | | | | [place] | [place] [address] | Osteoarthritis, | | | | [address] | [phone] | unspecified | | | | [phone] | | osteoarthritis type, | | | [...] encounter Patient Instructions Patient Instructions Tamara Boles, Bookmaker Map - 02/21/2019 13:20 PDTWe hope t hat you have experienced exceptional care today and that you found our service to be courteo us and helpful. ? If you have any questions/concerns or need medication refills you can send us a message/r equest using [employer] or by calling our office at [phone]. o If you would like to reach my medical insurance claims processor, Paula Boles please call [phone] Ext: [phone] ? If you are unable to reach [...] can also look at your results on Olapic. If you are experiencing an emergency, please [...] hepatitis C virus (HCV)/(AIDS), L ymphoma, Sarcoidosis, Uztdq-vpxiet-xhjb disease, Recent use of medications with anticholiner [...] Diagnosis Date Alcoholism (HCC) Arthritis Chemical dependency ([facility]) Depression H/O bronchitis H/O psychiatric care H/O: pneumonia Suicide attempt ([facility]) Current Outpatient Medications: albuterol 90 mcg/puff [...] | Wt 86.2 kg (190 lb) | Mentor stfeeding? No | BMI 28.06 kg/m Physical [...] 360 hour(s)). Laboratory results were reviewed in [facility] as well as chart notes and [...] [place] | | | | | | [address] | | | | | | | [...]
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
[~2019-03-04 13:49] MED LIST changes: +BUPROPION HCL200 M1 PO; +CARAFATE1 GM/10 ML PO; +CHLORDIAZEPOXID25 MG PO; +CIPRO500 MG PO; +FLAGYL500 MG PO; +NORCO 5-325 TA1 EACH PO; +TRAZODONE HCL100 MG PO
--- OUTSIDE RECORDS SUMMARY | 2019-03-04 13:52 | XMS ---
PreManage Notification: ROSS BUTCHER Security Manager Secondary Events No recent Security Events currently on file CRITERIA MET - 6 ED Visits in 6 Months - [facility] - 3 Facilities in 90 Days - PDMP - [facility] - 2 Visits in 30 Days CARE PROVIDERS WALLACE CHUA [facility] Medicine 10/10/2017-Current PHONE: Unknown MINDA CROCKER Nurse Practitioner: Family Current PHONE: Unknown Niko Maddox Community Health Worker 03/02/2019-Current PHONE: [phone] KEV RICHARD Nurse Practitioner: Family Current PHONE: Unknown ARLENE Shah Physician Learning Support Resource Room Teacher Current PHONE: [phone] LAURA LANDRUM Physician Learning Support Resource Room Teacher Current PHONE: [phone] BLANQUITA [facility]: [facility] 01/22/2018-Current [facility] MEDICAL Access PHONE: [phone] LORENA HAAS Family Medicine Current PHONE: Unknown Hayes Pepe Counselor: Mental Health 03/14/2015-Current PHONE: [phone] FAUSTO LIZAMA [facility] Current PHONE: Unknown LAURA LANDRUM Primary Care Current PHONE: Unknown BRIANA TAYLOR Primary Care 01/23/2018-Current JAZMIN JUARES PHONE: [phone] PATRICIA JACOBS Primary Care Current PHONE: Unknown HARSHIL GONSALEZ Primary Care 10/10/2017-Current PHONE: [phone] [facility] 05/10/2016-11/28/2015 [facility] PHONE: [phone] HARSHIL GONSALEZ Primary [facility] Current PHONE: Unknown BK TAPIA Primary Care Current PHONE: Unknown Hayes Pepe Primary Care 03/14/2015-Current PHONE: [phone] ELFEGO ABBASI Primary Care Current PHONE: Unknown JAZZ VALLADARES Primary Care Current PHONE: Unknown Patricia Jacobs Primary Care Current PHONE: Unknown [facility] Care 04/14/2015-[facility]\ [facility] PHONE: [phone] CAROL DOE Primary Care Current PHONE: [phone] Vel has no Care Guidelines for this patient. Km VISIT COUNT (12 MO.) 1 [facility]. 6 [facility] 2 AKIRA Carrillo TOTAL 9 NOTE: Visits indicate total known visits. ED/UCC VISIT TRACKING (12 MO.) 03/04/2019 13:50 [facility] [place] TYPE: Emergency COMPLAINT: - URINATION PROBLEMS 03/01/2019 23:16 [facility] [place] TYPE: Emergency DIAGNOSES: - OVERDOSE 02/27/2019 20:22 [facility]. TYPE: Emergency COMPLAINT: - Abdominal Pain DIAGNOSES: - Retention of urine, unspecified - Alcohol use, unspecified with intoxication, uncomplicated - Unspecified abdominal pain - Abdominal Pain 2019 17:47 [facility] [place] TYPE: Emergency DIAGNOSES: - Poisoning by unsp narcotics, intentional self-harm, init - overdose - Alcohol use, unspecified with intoxication, uncomplicated 01/14/2019 22:13 [facility] [place] TYPE: Emergency COMPLAINT: - ABDOMINAL PAIN DIAGNOSES: - Anxiety disorder, unspecified - Other jail (current) drug therapy - Major depressive disorder, single episode, unspecified - Generalized abdominal pain - Dvrtclos of intest, part unsp, w/o perf or abscess w/o bleed - Nicotine dependence, unspecified, uncomplicated - Gastro-esophageal reflux disease without esophagitis - Allergy status to sulfonamides status 01/10/2019 10:03 [facility] [place] TYPE: Emergency DIAGNOSES: - VOMITING BLOOD 10/20/2018 15:52 [facility] [employer] [place] TYPE: Emergency DIAGNOSES: - Alcoholic gastritis without bleeding - Alcohol abuse, uncomplicated - Alcohol dependence with withdrawal, uncomplicated - ABD PAIN 10/19/2018 15:58 [facility] [place] TYPE: Emergency DIAGNOSES: - Alcohol use, unspecified with intoxication, uncomplicated - DEHYDRATION 05/17/2018 10:41 [facility] [place] TYPE: Emergency DIAGNOSES: - Dvrtclos of lg int w/o perforation or abscess w/o bleeding - Pure hyperglyceridemia - POSS PANCREATITIS - Alcohol use, unspecified with intoxication, unspecified - Encntr screen mammogram for malignant neoplasm of breast - Acute gastritis without bleeding INPATIENT VISIT TRACKING (12 MO.) No inpatient visits to display in this time frame [email or web address]
== END 2019-03-04 17:44 | disposition home or self-care (01) ==
LOC: ED 13:49
PROC: 0T9B70Z Drainage of Bladder with Drainage Device, Via Natural or Artificial Opening (ICD-10-PCS; principal; 2019-03-04)
PROC: 4A0D7LZ Measurement of Urinary Volume, Via Natural or Artificial Opening (ICD-10-PCS; 2019-03-04)
DX: N39.0 Urinary tract infection, site not specified (principal); F10.10 Alcohol abuse, uncomplicated; F17.200 Nicotine dependence, unspecified, uncomplicated; Z88.2 Allergy status to sulfonamides
CPT/HCPCS: 51702; 51798; 81001; 99283

== ENCOUNTER 2019-04-12 18:03 | Emergency (ER) | payer OTHER ==
[~2019-04-12] VITALS: Ht 167.6 cm; Wt 83.9 kg
--- OUTSIDE RECORDS SUMMARY | ~2019-04-12 | XMS | Encounter Summary ---
Demographics + + + | Address | [address] | | | [place] [address] | + + + | Home Phone | | + + + | Preferred Language | Unknown | + + + | Marital Status | Single | + + + | Zoroastrianism Affiliation | NON | + + + | Race | White | + + + | Ethnic Group | Not or | + + + Author + + + | Author | [facility] | + + + | Organization | [facility] | + + + | Address | Unknown | + + + | Phone | Unavailable | + + + Support + + +---------+ + | Name | Relationship | Address | Phone | + + +---------+ + | Compa Zendejas | ECON | Unknown | | + + +---------+ + Care Team Providers + +------+ + | Care Cash Grain Farmer Name | Role | Phone | + +------+ + | No Pcp Per Patient | PCP | Unavailable | + +------+ + Reason for Referral Physical Therapy (Routine) + +--------+ + + + + | Status | Reason | Specialty | Diagnoses / | Referred By | Referred To | | | | | Procedures | Contact | Contact | + +--------+ + + + + | New Request | | | Diagnoses | Evangelista, | [place] | | | | | Chronic low | MD Narciso | PT [place] | | | | | back pain, | [address] | [address] | | | | | unspecified | [facility] | [facility] | | | | | back pain | Rd | [address] | | | | | laterality, | [place], [place] | [place] | | | | | unspecified | [address] | [address] | | | | | whether | Phone: | Phone: | | | | | sciatica | [phone] | [phone] | | | | | present | Fax: | Fax: | | | | | Procedures | [phone] | [phone] | | | | | PHYSICAL | | | | | | | THERAPY | | | | | | | REFERRAL | | | + +--------+ + + + + Consultation (Routine) + +---------+ + + + + | Status | Reason | Specialty | Diagnoses / | Referred By | Referred To | | | | | Procedures | Contact | Contact | + +---------+ + + + + | New Request | Other | Pain | Diagnoses | Jean Carlos, | [facility] | | | | Management | Chronic low | MD Narciso | [address] | | | | | back pain, | [address] | [address] | | | | | unspecified | [facility] | Mailcode: | | | | | back pain | Rd | [facility] | | | | | laterality, | [place], [place] | for Health | | | | | unspecified | [address] | and Healing, | | | | | whether | Phone: | Building | | | | | sciatica | [phone] | [address] | | | | | present | Fax: | [place], [place] | | | | | Procedures | [phone] | [address] | | | | | CONSULT TO | | Phone: | | | | | PAIN | | [phone] | | | | | MANAGEMENT | | Fax: | | | | | | | [phone] | + +---------+ + + + + Reason for Visit + + + | Reason | Comments | + + + | New Patient Visit | | + + + | Low back pain | | + + + Intake Referral (Routine) + +--------+ + + + + | Status | Reason | Specialty | Diagnoses / | Referred By | Referred To | | | | | Procedures | Contact | Contact | + +--------+ + + + + | Authorized | | Spine | Diagnoses | | Jean Carlos, | | | | | Spinal | Navya, | MD Narciso | | | | | stenosis, | [place], | [address] | | | | | lumbar | [place] [address] | [address] | | | | | region | [address] | [address] [place], | | | | | without | [place], | [place] | | | | | neurogenic | [place] [address] | [address] | | | | | claudication | Phone: | Phone: | | | | | Procedures | [phone] | [phone] | | | | | ELVIS | Fax: | Fax: | | | | | | [phone] | [phone] | + +--------+ + + + + Encounter Details +--------+---------+ + + + | Date | Type | Department | Care Team | Description | +--------+---------+ + + + | 04/11/ | Office | Orthopaedics at | Narciso Evangelista MD | Chronic low back | | 2019 | Visit | [facility] [address] | [address] [place] | pain, unspecified | | | | Ave Mailcode: CH[address]A | [place], | back pain | | | | [place] for [facility] | [place] [address] | laterality, | | | | and Healing, | [phone] | unspecified whether | | | | Building | | sciatica present | | | | Floor [place], [place] | | (Primary Dx) | | | | [address] | | | | | | [phone] | | | +--------+---------+ + + + Social History + + + +--------+------+ | Tobacco Use | Types | Packs/Day | Years | Date | | | | | Used | | + + + +--------+------+ | Current Every Day | Cigarettes | | | | | Smoker | | | | | + + + +--------+------+ + +---+---+---+ | Smokeless Tobacco: | | | | | Never Used | | | | + +---+---+---+ + + +---------+ + | Alcohol Use | Drinks/Week | oz/Week | Comments | + + +---------+ + | Yes | | | | + + +---------+ + + + + + | Alcohol Habits | Answer | Date Recorded | + + + + | How often do you have a drink containing | Monthly or less | 04/11/2019 | | alcohol? | | | + + + + | How many drinks containing alcohol do you | Not asked | | | have on a typical day when you are | | | | drinking? | | | + + + + | How often do you have six or more drinks on | Not asked | | | one occasion? | | | + + + + + + + | Sex Assigned [...] + + + | Blood Pressure | 128/80 | 04/11/2019 10:26 AM | | | | | PST | | + + + + + | Pulse | 96 | 04/11/2019 10:26 AM | | | | | PST | | + + + + + | Temperature | 36.8 C (98.3 F) | 04/11/2019 10:26 AM | | | | | PST | | + + + + + | Respiratory Rate | 15 | 04/11/2019 10:26 AM | | | | | PST | | + + + + + | Oxygen Saturation | - | - | | + + + + + | Inhaled Oxygen | - | - | | | Concentration | | | | + + + + + | Weight | 83.9 kg (185 lb) | 04/11/2019 10:26 AM | | | | | PST | | + + + + + | Height | 167.6 cm (5' 6") | 04/11/2019 10:26 AM | | | | | PST | | + + + + + | Body Mass Index | 29.86 | 04/11/2019 10:26 AM | | | | | PST | | + + + + + documented in this encounter Plan of Treatment Not on filedocumented as of this encounter Visit Diagnoses + + | Diagnosis | + + | Chronic low back pain, unspecified back pain laterality, unspecified whether sciatica | | present - Primary | + + documented in this encounter
--- OUTSIDE RECORDS SUMMARY | ~2019-04-12 | XMS | Encounter Summary ---
Demographics + + + | Address | [address] | | | [place] [address] | + + + | Home Phone | | + + + | Preferred Language | Unknown | + + + | Marital Status | | + + + | Protestant Affiliation | Unknown | + + + | Race | Unknown | + + + | Ethnic Group | Unknown | + + + Author + + + | Author | [facility] | | | and [place] | + + + | Organization | [facility] | | | and [...] Team Providers + +------+ + | Care Dog Trainer Name | Role | Phone | + +------+ + | Bhakti Dietz PA-C | PCP | | + +------+ + Encounter Details +--------+ + + + + | Date | Type | Department | Care Team | Description | +--------+ + + + + | 12/15/ | Orders Only | [facility] | [place], | Other specified | | 2019 | | HEMATOLOGY AND | Juan R Gray MD | diseases of blood | | | | ONCOLOGY [place] | [address] | and blood-forming | | | | [address] | [place] | organs; Other | | | | [place], [place] | [address] | neutropenia (HCC) | | | | [address] | | | | | | [phone] | | | +--------+ + + + + Social History + +-------+ +--------+------+ | Tobacco Use | Types | Packs/Day | Years | Date | | | | | Used | | + +-------+ +--------+------+ | Current Every Day | | | | | | Smoker | | | | | + +-------+ +--------+------+ + + + | Sex Assigned at [...] + + documented as of this encounter Plan of Treatment +--------+---------+ + [...] [place] | | | | | | [address] | | | | | | | | +--------+---------+ + + + + +------+--------+ + + | Name | Type | Priori | Associated Diagnoses | Order Schedule | | | | ty | | | + +------+--------+ + + | Vitamin B-12 and | Lab | Routin | Other specified | Expected: | | Folate | | e | diseases of blood | 02/16/2019, Expires: | | | | | and blood-forming | 11/17/2019 | | | | | organs Other | | | | | | neutropenia (HCC) | | + +------+--------+ + + | Ferritin | Lab | Routin | Other specified | Expected: | | | | e | diseases of blood | 02/16/2019, Expires: | | | | | and blood-forming | 11/17/2019 | | | | | organs Other | | | | | | neutropenia (HCC) | | + +------+--------+ + + | Iron and Iron | Lab | Routin | Other specified | Expected: | | Binding Capacity | | e | diseases of blood | 02/16/2019, Expires: | | | | | and blood-forming | 11/17/2019 | | | | | organs Other | | | | | | neutropenia (HCC) | | + +------+--------+ + + documented as of this encounter Visit Diagnoses + + | Diagnosis | + + | Other specified diseases of blood and blood-forming organs | + + | Other neutropenia (HCC) Other neutropenia | + + documented in this encounter"
--- OUTSIDE RECORDS SUMMARY | ~2019-04-12 | XMS | Encounter Summary ---
Demographics + + + | Address | [address] | | | [place] [address] | + + + | Home Phone | | + + + | Preferred Language | Unknown | + + + | Marital Status | | + + + | Buddhist Affiliation | Unknown | + + + | Race | Unknown | + + + | Ethnic Group | Unknown | + + + Author + + + | Author | [facility] | | | and [place] | + + + | Organization | [facility] | | [...] Team Providers + +------+ + | Care Pattern Grader Supervisor Name | Role | Phone | + +------+ + | Raudel Ellington DO | PCP | | + +------+ + Encounter Details +--------+ + + + + | Date | Type | Department | Care Team | Description | +--------+ + + + + | 11/16/ | Orders Only | [facility] | Conversion | | | 2019 | | CONVERSION DEP [address] | Transaction, | | | | | CARMELO MOYER | Provider Unknown | | | | | [place] | [phone] | | | | | [address] | | | | | | [phone] | | | +--------+ + + + [...] [place] | | | | | | [address] | | | | | | | | +--------+---------+ + + + documented as of this encounter Visit Diagnoses Not on filedocumented in this encounter"
--- OUTSIDE RECORDS SUMMARY | ~2019-04-12 | XMS | Encounter Summary ---
Demographics + + + | Address | [address] | | | [place] [address] | + + + | Home Phone | | + + + | Preferred Language | Unknown | + + + | Marital Status | | + + + | Restorationist Affiliation | Unknown | + + + | Race | Unknown | + + + | Ethnic Group | Unknown | + + + Author + + + | Author | [facility] | | | and [place] | + + + | Organization | [facility] | | | [...] Team Providers + +------+ + | Care Recapper Name | Role | Phone | + +------+ + | Raudel Ellington DO | PCP | | + +------+ + Reason for Visit Evaluate & Treat (Routine) +--------+--------+ + + [...] | | double | [facility] | [address] | | | | | stranded DNA | [address] | [address] | | | | | antibody | St | [place] | | | | | test, | [place] | [address] | | | | | Chronic | [address] | Phone: | | | | | joint pain | Phone: | [phone] | | | | | | [phone] | Fax: | | | | | | | [phone] | +--------+--------+ + + + + Encounter Details +--------+---------+ + + + | Date | Type | Department | Care Team | Description | +--------+---------+ + + + | 02/21/ | Office | [facility] | Roge Chow, | Polyarthralgia | | 2019 | Visit | RHEUMATOLOGY [address] | PA-C [address] | (Primary Dx); High | | | | [address] | [address] | risk medication use; | | | | [place] | [place] [address] | Osteoarthritis, | | | | [address] | [phone] | unspecified | | | | [phone] | | osteoarthritis type, | | | | | | unspecified site | +--------+---------+ + + + Social History [...] + + + | Blood Pressure | 126/80 | 02/21/2019 1:22 PM | | | | | PDT | | + + + + + | Pulse | 91 | 02/21/2019 1:22 PM | | | | | PDT | | + + + + + | Temperature | 37.2 C (98.9 F) | 02/21/2019 1:22 PM | | | | | PDT [...] + + + + | Weight | 86.2 kg (190 lb) | 02/21/2019 1:22 PM | | | | | PDT | | + + + + + | Height | - | - | | + + + + + | Body Mass Index | 28.06 | 11/16/2018 1:13 PM | | | | | PDT | | + + + + + documented in this encounter Patient Instructions Patient Instructions Tamara Boles Director Global Strategic Publisher Sales - 02/21/2019 1:20 PM PDTWe hop e that you have experienced exceptional care today and that you found our service to be cour teous and helpful. ? If you have any questions/concerns or need medication refills you can send us a message/r equest using [employer] or by calling our office at [phone]. o If you would like to reach my medical policy specialist, Paula Boles please call [phone] Ext: [phone] ? If you are unable to reach a nurse during clinic hours, please leave a detailed message. We check our messages often and return calls in a timely manner during clinic hours. ? Orders for labs or imaging: Please remember that Roge Chow PA-C will only call you i f something of concern needs to be addressed, otherwise all result will be discussed at your next office visit. You can also look at your results on [employer]. If you are experiencing an emergency, please call 911 documented in this encounter Progress Notes Roge Chow PA-C - 02/21/2019 1:20 PM PDTFormatting of this note might be different f rom the original. Subjective: Patient ID: Nuvia Zendejas is a 54 y.o. female. Rheumatological History: Nuvia Zendejas is a 53 y.o. female polysubstance abuse, Chronic pain, reactive airway wit h who came to rheumatology clinic for new patient evaluation of positive dsDNA. Joint joint: Joints involved are lower back, upper back, shoulder, elbows, wrist, knees and ankle joints . The problem has been present for several years. Symptoms include pain, swelling, morning s tiffness, lasting less than 15 minutes, limited range of motion of neck and lower back. Onse t was gradual. The symptoms are of moderate severity. They are made worse by: cold exposur e and increased activity. They are helped by rest and pain medication. Associated symptoms include: fatigue. Previously used rheumatologic medications include [...] recurrently or persistently swollen salivary glands as anadult: no gland swell ing: no Denies Prior head and/or neck irradiation, Infection with hepatitis C virus (HCV)/(AIDS), L ymphoma, Sarcoidosis, Oycff-agcpfb-kefe disease, Recent use of medications with anticholiner gic properties Previous Report Reviewed: lab reports and office notes Initially seen by: Dr. Rayna MD on: 01/24/2019 Pertinent Serology: negative Pertinent Imaging: None Tried and failed oral DMARDs include: None Tried and failed biologic DMARDs include: None Tried and failed NSAIDs: None History of Present Illness Visit Diagnosis: Polyarthralgia's Appointment type: Follow up Last Seen On: 01/24/[address] Rayna MD Today's Date: 02/21/2019 Any changes in overall health since last visit: Yes: See below Current rheumatological medications: none Current chief complaint: The patient states that she has pain all over especially in her ba ck, hips, and knees. She states that she was recently diagnosed with spinal stenosis and is working with her PCP and ortho for that. She states her pain is best with rest and medicatio n and worse with activity. She states she is the worse by the end of the day Rating Scale: 5 Morning stiffness lasting: No morning stiffness but pain/ache in the evening Quality: Ache Severity: Mild Duration: Chronic Timing: Evening>Morning Aggravated by: Activity Relieved by: Medication and rest The patient denies any signs of: infection, fever and abdominal pain The following portions of the patient's history were reviewed and updated as appropriate an d is available with the EMR: allergies, current medications, past family history, past medic al history, past social history, past surgical history and problem list. Review of Systems Constitutional: Positive for fatigue. Negative for fever. HENT: Negative for mouth sores and sore throat. Eyes: Negative for pain and redness. Dry eyes Respiratory: Positive for cough. Negative for shortness of breath. Cardiovascular: Negative for chest pain. Gastrointestinal: Negative for abdominal pain and blood in stool. Genitourinary: Negative for dysuria and hematuria. Musculoskeletal: Positive for arthralgias and joint swelling (ankles). Skin: Negative for rash. Neurological: Positive for headaches. Negative for numbness. Psychiatric/Behavioral: The patient is not nervous/anxious. IRoge PA-C, reviewed the above ROS. Past Medical History: Diagnosis Date Alcoholism ([facility]) Arthritis Chemical dependency ([facility]) Depression H/O bronchitis H/O psychiatric care H/O: pneumonia Suicide attempt ([facility]) Current Outpatient Medications: albuterol 90 mcg/puff inhaler, INHALE TWO PUFFS BY MOUTH EVERY 4 HOURS NEEDED FOR S HORTNESS OF BREATH, Disp: , Rfl: atorvaSTATin (LIPITOR) 20 mg tablet, Take 20 mg by mouth nightly., Disp: , Rfl: buPROPion (WELLBUTRIN XL) 300 mg 24 hr tablet, Take 300 mg by mouth., Disp: , Rfl: chlordiazePOXIDE (LIBRIUM) 5 mg capsule, Take 25 mg by mouth., Disp: , Rfl: docusate sodium (COLACE) 100 mg capsule, Take 100 mg by mouth daily., Disp: , Rfl: DULoxetine (CYMBALTA) [address] capsule, Take 30 mg by mouth., Disp: , Rfl: fluticasone (FLONASE) 50 mcg/nasal spray, 1 spray by Nasal route Daily., Disp: , Rfl: gabapentin (NEURONTIN) 300 mg capsule, Take 300 mg by mouth., Disp: , Rfl: HYDROcodone-acetaminophen (NORCO) 5-325 mg per tablet, Take 1 tablet by mouth every 4 hours as needed for Pain., Disp: , Rfl: ipratropium (ATROVENT HFA) 17 mcg/puff inhaler, Inhale 2 puffs into the lungs 2 (two) times daily as needed., Disp: , Rfl: loratadine-pseudoePHEDrine (CLARITIN-D 24-HOUR) 10-240 mg per tablet, Take 1 tablet by mouth. (Patient not taking: Reported on 02/21/2019), Disp: , Rfl: meloxicam (MOBIC) 15 mg tablet, Take 15 mg by mouth daily., Disp: , Rfl: pantoprazole (PROTONIX) 40 mg tablet, Take 40 mg by mouth., Disp: , Rfl: sucralfate (CARAFATE) 1 g/10 mL suspension, Take 1 g by mouth 4 times daily., Disp: , Rfl: traZODone (DESYREL) 50 mg tablet, Take 200 mg by mouth nightly., Disp: , Rfl: Family History Problem Relation Age of Onset Anemia Maternal Grandmother Lung cancer Paternal Grandmother Cancer Paternal Grandmother Social History Socioeconomic History Marital status: Spouse [...] Use Smoking status: Current Every Day Smoker Smokeless tobacco: Never Used Substance and Sexual Activity Alcohol use: Not Currently Drug use: Not on file Sexual activity: Not on file Other Topics Concern Not on file Social History Narrative Not on file Allergies Allergen Reactions Codeine Itching Demeclocycline Other (See Comments) Hydrocodone Itching Morphine Itching Oxycodone Itching Oxycodone-Acetaminophen Itching Prednisone Rash Rash, Other reaction(s): Other (See Comments) Tetracycline Other (See Comments) Objective: BP 126/80 | Pulse 91 | Temp 37.2 C (98.9 F) (Temporal) | Wt 86.2 kg (190 lb) | Maribel stfeeding? No | BMI 28.06 kg/m Physical Exam Constitutional: She is oriented to person, place, and time. She appears well-developed and well-nourished. No distress. HENT: Head: Normocephalic and atraumatic. Eyes: Pupils are equal, round, and reactive to light. Conjunctivae and EOM are normal. Righ t eye exhibits no discharge. Left eye exhibits no discharge. Neck: Normal range of motion. Pulmonary/Chest: Effort normal. No respiratory distress. Abdominal: She exhibits no distension. Neurological: She is alert and oriented to person, place, and time. Skin: Skin is warm and dry. No rash noted. Lab Data: Lab Results Component Value Date WBC 3.46 (L) 01/24/2019 HGB 13.4 01/24/2019 HCT 39.6 01/24/2019 MCV 101.2 (H) 01/24/2019 MCH 34.1 (H) 01/24/2019 MCHC 33.7 01/24/2019 PLT 205 01/24/2019 MPV 9.6 01/24/2019 Lab Results Component Value Date NA 139 01/24/2019 K 4.1 01/24/2019 CL 103 01/24/2019 CO2 32 01/24/2019 ANIONGAP 8 01/24/2019 GLU 85 01/24/2019 CALCIUM 9.2 01/24/2019 ALT 30 01/24/2019 ALBUMIN 3.9 01/24/2019 Lab Results Component Value Date CRP <0.3 01/24/2019 Lab Results Component Value Date ESR 14 01/24/2019 Imaging: No results found for this or any previous visit (from the past 360 hour(s)). Laboratory results were reviewed in [facility] as well as chart notes and imaging from other prov ider(s) since their last rheumatology clinic visit, Please see the EMR for further detail. Assessment and Plan: Visit Diagnoses and Associated Orders: Problem List Items Addressed This Visit Musculoskeletal Osteoarthritis The patient returns to the clinic for a follow up appointment. She was seen by Dr. Rayna carlos or multiple joint pains. Her blood work was unrevealing. Her inflammatory markers are satisf actory. There are no signs or symptoms of and inflammatory process occurring. Her symptoms a re likely associated with OA. She was recently diagnosed with spinal stenosis. At this time the patient doesn't meet any criteria for rheumatological conditions such as a inflammatory arthropathy or spondyloarthropathy/MCTD. The patient is advised to journal and take pictures if any of her joints start to swell or develops a rash or anything out of the normal. The patient can then return to the clinic for further evaluation if warranted and f inding suggest and rheumatological condition is occurring but at this time the patient will placed on a PRN status and can return to the clinic if further evaluation is warranted and o r requested by PCP. Other Visit Diagnoses Polyarthralgia - Primary High risk medication use Risks and benefits of a treatment plan were explained to patient. Patient will follow up with their primary care physician in regards to non-rheumatological symptoms listed under review of systems. Patient was advised to contact our office if there are any change in their symptoms. This is a patient with multiple medical problems that require considerable time and reflect ion in order to properly evaluate and manage. Avoidance of adverse drug interactions and opt imization of treatment/therapy is the primary goal. Complex analysis and decision making was involved in today's visit. Procedure Documentation: Procedures Tam hampton in this encounter Plan of Treatment +--------+---------+ + + + | Date | Type | Specialty | Care Team | Description | +--------+---------+ + + + | 07/18/ | Office | Oncology | [place], | | | 2019 | Visit | | Juan R Gray MD | | | | | | [address] | | | | | | [place] | | | | | | [id number] | | | | | | | | +--------+---------+ + + + documented as of this encounter Visit Diagnoses + + | Diagnosis | + + | Polyarthralgia - Primary Pain in joint, multiple sites | + + | High risk medication use Encounter for long-term (current) use of other medications | + + | Osteoarthritis, unspecified osteoarthritis type, unspecified site | + + documented in this encounter"
--- OUTSIDE RECORDS SUMMARY | ~2019-04-12 | XMS | Encounter Summary ---
Demographics + + + | Address | [address] | | | [place] [address] | + + + | Home Phone | | + + + | Preferred Language | Unknown | + + + | Marital Status | | + + + | Gnosticism Affiliation | Unknown | + + + | Race | Unknown | + + + | Ethnic Group | Unknown | + + + Author + + + | Author | [facility] | | | and [place] | + + + | Organization | [facility] | | | [...] Team Providers + +------+ + | Care Application Support Lead Name | Role | Phone | + [...] | | | | [place] | [phone] | | | | | [address] | | | | | | [phone] | | | +--------+ + + + [...] [place] | | | | | | [address] | | | | | | | | +--------+---------+ + + + documented as of this encounter Visit Diagnoses Not on filedocumented in this encounter"
--- OUTSIDE RECORDS SUMMARY | ~2019-04-12 | XMS | Encounter Summary ---
Demographics + + + | Address | [address] | | | [place] [address] | + + + | Home Phone | | + + + | Preferred Language | Unknown | + + + | Marital Status | | + + + | Druze Affiliation | Unknown | + + + | Race | Unknown | + + + | Ethnic Group | Unknown | + + + Author + + + | Author | [facility] | | | and [place] | + + + | Organization | [facility] | | | [...] Team Providers + +------+ + | Care Manufacturing Technology Professor Name | Role | Phone | + +------+ + | Bhakti Dietz PA-C | PCP | | + +------+ + Encounter Details +--------+ + + + + | Date | Type | Department | Care Team | Description | +--------+ + + + + | 12/15/ | Orders Only | [facility] | [place], | Other specified | | 2019 | | HEMATOLOGY AND | Juan R Gray MD | diseases of blood | | | | ONCOLOGY [place] | [address] | and blood-forming | | | | [address] | [place] | organs; Other | | | | [place], [place] | [address] | neutropenia (HCC) | | | | [address] | | | | | | [phone] | | | +--------+ + + + [...] [place] | | | | | | [address] | | | | | | | [...]
--- OUTSIDE RECORDS SUMMARY | ~2019-04-12 | XMS | Clinical Summary ---
Demographics + + + | Address | [address] | | | [place] [address] | + + + | Home Phone | | + + + | Preferred Language | Unknown | + + + | Marital Status | | + + + | Sikhism Affiliation | Unknown | + + + | Race | Unknown | + + + | Ethnic Group | Unknown | + + + Author + + + | Author | [facility] | | | and [place] | + + + | Organization | [facility] | | | [...] Team Providers + +------+ + | Care Condenser Tester Name | Role | Phone | + [...] | detox/rehab, mental health. [place] 09/[place]/13, [facility] Re[facility] 1994 & | | 2002, [facility] Re[facility] 2001, [facility] 2009, [place] | | Detox 1989 & , [facility] OD 1990. [place] | | [facility] records, [facility] Last | | Assessment & Plan: Taylor admits for detox. Recent OD was related | | to wanting help for cessation again. Has follow up at [place] | | [place]. Monitor liver fxn and use. | + [...] admits for | | detox/rehab, mental health. [place] 09/[place]/13, [facility] Re[facility] 1994 & | | 2002, [facility] Rehab 2001, [facility] 2009, [place] | | Detox 1989, [facility] OD 1990. [place] | | [facility] med records, [facility] Last | | Assessment & Plan: Taylor admits for detox. Recent OD was related | | to wanting help for cessation again. Has follow up at [facility]. Monitor liver fxn and use. Overview: Overview: Drinks | | until Black out, 10-12 servings at least by her estimate Within | | 30 min in morning has to drink for w/d sx 1989 heavy drinking | | began when quit other drugs Some hx of use since age 5. Hx of | | mult admits for detox/rehab, mental health. [place] 09/12/13, | | [facility] Re[facility] 1994 & 2002, [facility] Rehab 2001, [facility] 2009, | | [place] Detox 1989 & , [facility] OD | | 1990. [facility] med records, [facility] | | Last Assessment & Plan: Taylor admits for detox. Recent OD was | | related to wanting help for cessation again. Has follow up at | | [place]. Monitor liver fxn and use. | + [...] per pt. Assoc w/ stress, moving from [facility], started about | | the time [...] Polyarthralgia | | 2018 | | | Test Lead Application Testing | | +--------+ + + + + [...] | + + + + | INFLUENZA, [id number], | 04/11/2009 | | | UNSPECIFIED | [...] COOK | | | | | | [address] | | | | | | | [...] | | | | | | by [facility], [address] [place] [address] | | | | | | Maricarmen Garcia | | | | | | [address] | | | | + + + + + + + + | Specimen | + + | Blood | + + + + + + + | Performing | Address | City/State/Zipcode | Phone Number | | Organization | | | | + + + + + | REFERENCE LAB | [address] [place] [address] | [place] [address] | [phone] | | [facility] | Blvd[address] | | | | LABORATORY | | | | + + + + + | REFERENCE LAB | [address] [place] [address] | [place] [address] | | | [facility] | Blvd. | [...] REFERENCE | | | | performed at [facility];[address] | | LAB | | | | [place] | | [facility] | | | | Bl[address];[place] [address] | | LABORATORY | | + + + + + + + + | Specimen | + + | Blood | + + + + + + + | Performing | Address | City/State/Zipcode | Phone Number | | Organization | | | | + + + + + | REFERENCE LAB | [address] [place] [address] | [place] [address] | [phone] | | [facility] | Blvd. | | | | LABORATORY | | | | + + + + + | REFERENCE LAB | [address] [place] [address] | [place] [address] | | | [facility] | Blvd. | [...] | | | Autoantibod | performed at [facility], [address] | | LAB | | | y | [address] [place] | | [facility] | | | | [place] [address] | | LABORATORY | | + + + + + + + + | Specimen | + + | Blood | + + + + + + + | Performing | Address | City/State/Zipcode | Phone Number | | Organization | | | | + + + + + | REFERENCE LAB | [address] [facility] | [place] [address] | [phone] | | [facility] | Blvd[address] | | | | LABORATORY | | | | + + + + + | REFERENCE LAB | [address] [facility] [address] | [place] [address] | | | [facility] | Blvd. | [...] | | | Autoantibod | performed at [facility], [address] | | LAB | | | y | [facility] | | [facility] | | | | [place] [address] | | LABORATORY | | + + + + + + + + | Specimen | + + | Blood | + + + + + + + | Performing | Address | City/State/Zipcode | Phone Number | | Organization | | | | + + + + + | REFERENCE LAB | [address] [facility] [facility] | [place] [address] | [phone] | | [facility] | Blvd. | | | | LABORATORY | | | | + + + + + | REFERENCE LAB | [address] [facility] [facility] | [place] [address] | | | [facility] | Blvd. | [...] | | | Absolute | performed at [facility];[address] | K/uL | LAB | | | | [facility] | | [facility] | | | | Bl[address];[place] [address] | | LABORATORY | | + + + + + + + + | Specimen | + + | Blood | + + + + + + + | Performing | Address | City/State/Zipcode | Phone Number | | Organization | | | | + + + + + | REFERENCE LAB | [address] [place] [address] | [place] [address] | [phone] | | [facility] | Blvd. | | | | LABORATORY | | | | + + + + + | REFERENCE LAB | [address] [place] [address] | [place] [address] | | | [facility] | Blvd. | [...] REFERENCE | | | | performed at [facility];[address] | | LAB | | | | [place] | | [facility] | | | | Blvd;[place] [address] | | LABORATORY | | + + + + + + + + | Specimen | + + | Blood | + + + + + + + | Performing | Address | City/State/Zipcode | Phone Number | | Organization | | | | + + + + + | REFERENCE LAB | [address] [place] [address] | [place] [address] | [phone] | | [facility] | Blvd. | | | | LABORATORY | | | | + + + + + | REFERENCE LAB | [address] [place] [address] | [place] [address] | | | [facility] | Blvd. | [...] | | | | | performed at [facility];[address] | | | | | | [facility] | | | | | | Blvd;[place] [address] | | | | | | | | | | + + + + + + + + | Specimen | + + | Blood | + + + + + + + | Performing | Address | City/State/Zipcode | Phone Number | | Organization | | | | + + + + + | REFERENCE LAB | [address] [facility] | [place] [address] | [phone] | | [facility] | Blvd[address] | | | | LABORATORY | | | | + + + + + | REFERENCE LAB | [address] [facility] [facility] | [place] [address] | | | [facility] | Blvd. | [...] | [employer] | [facility] | [id number] | | [phone] | | Medica | [...] shani | | | 2 (Home) | [address] | + +--------+ +--------+ + + Advance Directives + + + + + | Type | Date Recorded | Patient | Explanation | | | | Locks Inspector | | + + + + + | Power of | | | | | Frozen Pie Maker | | | | + + + + + | Advance | | | | | Directive | | | | + + + + +
--- OUTSIDE RECORDS SUMMARY | ~2019-04-12 | XMS | Encounter Summary ---
Demographics + + + | Address | [address] | | | [place] [address] | + + + | Home Phone | | + + + | Preferred Language | Unknown | + + + | Marital Status | Single | + + + | Taoist Affiliation | NON | + + + | Race | White | + + + | Ethnic Group | Not or | + + + Author + + + | Organization | Unknown | + + + | Address | Unknown | + + + | Phone | Unavailable | + + + Support + + +---------+ + | Name | Relationship | Address | Phone | + + +---------+ + | Compa Zendejas | ECON | Unknown | | + + +---------+ + Care Team Providers + +------+ + | Care Guest Room Inspector Name | Role | Phone | + +------+ + | No Pcp Per Patient | PCP | Unavailable | + +------+ + Encounter Details +--------+--------+ + + + | Date | Type | Department | Care Team | Description | +--------+--------+ + + + | 04/11/ | Travel | | | | | 2019 | | | | | +--------+--------+ + + + Social History + + [...] as of this encounter Plan of Treatment Not on filedocumented as of this encounter Visit Diagnoses Not on filedocumented in this encounter"
--- OUTSIDE RECORDS SUMMARY | ~2019-04-12 | XMS | Encounter Summary ---
Demographics + + + | Address | [address] | | | [place] [address] | + + + | Home Phone | | + + + | Preferred Language | Unknown | + + + | Marital Status | | + + + | Hoahaoism Affiliation | Unknown | + + + | Race | Unknown | + + + | Ethnic Group | Unknown | + + + Author + + + | Author | [facility] | | | and [place] | + + + | Organization | [facility] | | [...] Team Providers + +------+ + | Care Seam Stay Stitcher Name | Role | Phone | + [...] | | test, | [place] | [address] | | | | | Chronic | [address] | Phone: | | | | | joint pain | Phone: | [phone] | | | | | | [phone] | Fax: | | | | | | | [phone] | +--------+--------+ + + + + Encounter Details +--------+---------+ + + + | Date | Type | Department | Care Team | Description | +--------+---------+ + + + | 01/24/ | Office | [facility] | Tamara Way MD | Polyarthralgia | | 2019 | Visit | RHEUMATOLOGY [address] | (Primary Dx); | | [address] | [place], [place] | Primary | | | | [place] | [address] | osteoarthritis | | | | [address] | | involving multiple | | | | [phone] | | joints | +--------+---------+ + + [...] encounter Patient Instructions Patient Instructions Tiffany Irene Embalmer Apprentice - 01/24/2019 7:50 AM PDTWe hope that you have experienced exceptional care today and that you found our service to be court eous and helpful. If you have any questions or need medication refills you can send us a message/request u [employer] or call our office at [phone]. To reach my [employer] type extension [phone]. If you are unable to reach a nurse during clinic hours, please leave a detailed message. We check our messages often and return calls in a timely manner during clinic hours. Orders for labs or imaging: Please remember that will only call you if something of concern needs to be addressed, otherwise all result will be discussed at your next [facility] e visit. You can also look at your results on [employer]. If you are experiencing an emergency, please call 911 documented in this encounter Progress Notes Tamara Way MD - 01/24/2019 7:50 AM PDTFormatting of this note might be different from e original. Subjective: Reason for referral: positive dsDNA History of presenting Illness: Nuvia Zendejas is a 53 y.o. female polysubstance abuse, Chronic pain, reactive airway [facility] who came to rheumatology clinic for [...] hepatitis C virus (HCV)/(AIDS), L ymphoma, Sarcoidosis, Xuaoq-ortsfz-hsfz disease, Recent use of medications with anticholiner [...] H/O psychiatric care H/O: pneumonia Suicide attempt ([facility]) Past Surgical History: Procedure Laterality Date SECTION [...] Lab Review: The labs were reviewed in [facility] Assessment and Plan: Nuvia was seen today [...] symptoms This progress note was dictated using P[employer] voice recognition software. Document was revie wed at time of dictation but lzvcy-l-pzou errors may be present. Please call with [...] [place] | | | | | | [id number] | | | | | | | [...] | | | Autoantibod | performed at [facility], [address] | | LAB | | | y | [facility] | | [facility] | | | | [place] [address] | | LABORATORY | | + + + + + + + + | Specimen | + + | Blood | + + + + + + + | Performing | Address | City/State/Zipcode | Phone Number | | Organization | | | | + + + + + | REFERENCE LAB | [address] [place] [address] | [place] [address] | [phone] | | [facility] | Blvd. | | | | LABORATORY | | | | + + + + + | REFERENCE LAB | [address] [place] [address] | [place] [address] | | | [facility] | Blvd. | [...] | | | Autoantibod | performed at [facility], [address] | | LAB | | | y | [facility] | | [facility] | | | | [place] [address] | | LABORATORY | | + + + + + + + + | Specimen | + + | Blood | + + + + + + + | Performing | Address | City/State/Zipcode | Phone Number | | Organization | | | | + + + + + | REFERENCE LAB | [address] | [place] [address] | [phone] | | [facility] | Blvd[address] | | | | LABORATORY | | | | + + + + + | REFERENCE LAB | [address] | [place] [address] | | | [facility] | Blvd. | [...] | | | | | | by [facility], [address] [place] [address] | | | | | | [facility] | | | | | | [address] | | | | + + + + + + + + | Specimen | + + | Blood | + + + + + + + | Performing | Address | City/State/Zipcode | Phone Number | | Organization | | | | + + + + + | REFERENCE LAB | [address] | [place] [address] | [phone] | | [facility] | Blvd[address] | | | | LABORATORY | | | | + + + + + | REFERENCE LAB | [address] | [place] [address] | | | [facility] | Blvd. | [...] REFERENCE | | | | performed at [facility];[address] | | LAB | | | | [place] | | [facility] | | | | Blvd;[place] [address] | | LABORATORY | | + + + + + + + + | Specimen | + + | Blood | + + + + + + + | Performing | Address | City/State/Zipcode | Phone Number | | Organization | | | | + + + + + | REFERENCE LAB | [address] [place] [address] | [place] [address] | [phone] | | [facility] | Blvd. | | | | LABORATORY | | | | + + + + + | REFERENCE LAB | [address] [place] [address] | [place] [address] | | | [facility] | Blvd. | [...] REFERENCE | | | | performed at [facility];[address] | | LAB | | | | [place] | | [facility] | | | | Blvd;[place] [address] | | LABORATORY | | + + + + + + + + | Specimen | + + | Blood | + + + + + + + | Performing | Address | City/State/Zipcode | Phone Number | | Organization | | | | + + + + + | REFERENCE LAB | [address] [place] [address] | [place] [address] | [phone] | | [facility] | Blvd. | | | | LABORATORY | | | | + + + + + | REFERENCE LAB | [address] [place] [address] | [place] [address] | | | [facility] | Blvd. | [...] | | | | | performed at [facility];[address] | | | | | | [facility] | | | | | | Blvd;[place] [address] | | | | | | | | | | + + + + + + + + | Specimen | + + | Blood | + + + + + + + | Performing | Address | City/State/Zipcode | Phone Number | | Organization | | | | + + + + + | REFERENCE LAB | [address] | [place] [address] | [phone] | | [facility] | Blvd. | | | | LABORATORY | | | | + + + + + | REFERENCE LAB | [address] | [place] [address] | | | [facility] | Blvd. | [...] | | | Absolute | performed at [facility];[address] | K/uL | LAB | | | | [place] | | [facility] | | | | [address]vd;[place] [address] | | LABORATORY | | + + + + + + + + | Specimen | + + | Blood | + + + + + + + | Performing | Address | City/State/Zipcode | Phone Number | | Organization | | | | + + + + + | REFERENCE LAB | [address] | [place] [address] | [phone] | | [facility] | Blvd. | | | | LABORATORY | | | | + + + + + | REFERENCE LAB | [address] | [place] [address] | | | [facility] | Blvd[address] | [...]
--- OUTSIDE RECORDS SUMMARY | ~2019-04-12 | XMS | Encounter Summary ---
Demographics + + + | Address | [address] | | | [place] [address] | + + + | Home Phone | | + + + | Preferred Language | Unknown | + + + | Marital Status | Single | + + + | Orthodoxy Affiliation | NON | + + + [...] Team Providers + +------+ + | Care Operations Expert Name | Role | Phone | + [...]
--- OUTSIDE RECORDS SUMMARY | ~2019-04-12 | XMS | Encounter Summary ---
Demographics + + + | Address | [address] | | | [place] [address] | + + + | Home Phone | | + + + | Preferred Language | Unknown | + + + | Marital Status | | + + + | Sikh Affiliation | Unknown | + + + | Race | Unknown | + + + | Ethnic Group | Unknown | + + + Author + + + | Author | [facility] | | | and [place] | + + + | Organization | [facility] | | | and [...] Team Providers + +------+ + | Care Recruitment Advertising Manager Name | Role | Phone | [...] + + | 03/22/ | Office | [facility] | [place], | Macrocytosis | | 2019 | Visit | HEMATOLOGY AND | Juan R Gray MD | (Primary Dx); | | | | ONCOLOGY [place] | [address] | Leukopenia, | | | | [address] | [facility] [place] | unspecified type | | | | [place] | [address] | | | | | [address] | | | | | | [phone] | | | +--------+---------+ + + + [...] might be dif ferent from the original. [facility] Hematology & Oncology Hematology Progress Note Patient [...] file Gets together: Not on file Attends buddhism service: Not on file Active member of [...] - 0.9 AI Final Testing performed at [address] [address] SS-A Autoantibody 01/24/2019 <0.2 0.0 - 0.9 AI Final Testing performed at [address] [address] Cyclic citrullinated peptide Ab.Ig* 01/24/2019 9 0 - 19 units Final Comment: Negative <20 Weak positive 20 - 39 Moderate positive 40 - 59 Strong positive >59 Testing performed by [employer], [address] [facility] [address] ESR 01/24/2019 14 0 - 30 mm/Hr Final Testing performed at [facility];[address] [place] [address];[place] [address] CRP 01/24/2019 <0.3 <0.5 mg/dL Final Testing performed at [facility];[address] [place] [address];[place] [address] Na 01/24/2019 139 135 - 145 mmol/L [...] MDRD IDMS traceable equation. Testing performed at [facility];[address] [place] [address];[place] [address] WBC 01/24/2019 3.46* 3.80 - 11.00 K/uL [...] K/uL Final Testing performed at [facility];[address] [facility];[place] [address] Assessment Ms. Nuvia Butcher is a pleasant [...] to her satisfaction. Juan R Harris MD [facility] Hematology & Oncology 03/22/2019 Portions of this [...] [place] | | | | | | [address] | | | | | | | [...]
--- OUTSIDE RECORDS SUMMARY | ~2019-04-12 | XMS | Clinical Summary ---
Demographics + + + | Address | [address] | | | [place] [address] | + + + | Home Phone | | + + + | Preferred Language | Unknown | + + + | Marital Status | Single | + + + | Baptism Affiliation | NON | + + + | Race | White | + + + | Ethnic Group | Not or | + + + Author + + + | Author | [facility] | + + + | Organization | [facility] | + + + | Address | Unknown | + + + | Phone | Unavailable | + + + Support + + +---------+ + | Name | Relationship | Address | Phone | + + +---------+ + | Compa Cristiana | ECON | Unknown | | + + +---------+ + Care Team Providers + +------+ + | Care Windows Server Engineer Name | Role | Phone | + +------+ + | No Pcp Per Patient | PCP | Unavailable | + +------+ + Source Comments HAM is fully live on both [facility] Ambulatory and [facility] InPatient.[facility] Allergies + + + + + + [...] | + + + +---------+------+------+-------+ Active Problems Not on file Encounters +--------+---------+ + + + | Date [...] | | | + +--------+ +--------+-------+---------+--------+ | PLEAT PATTERNMAKER MEDICAID | PLEAT PATTERNMAKER | xxxxxxxx | | | | Medica [...] | Self | [birth year] | [address] | | | al/Fam | | 1965 | [phone] | [place] [address] | | | shani | | | 2 (Home) | | + +--------+ +--------+ + +
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
--- OUTSIDE RECORDS SUMMARY | ~2019-04-12 | XMS | Encounter Summary ---
Demographics + + + | Address | [address] | | | [place] [address] | + + + | Home Phone | | + + + | Preferred Language | Unknown | + + + | Marital Status | | + + + | Christian Affiliation | Unknown | + + + | Race | Unknown | + + + | Ethnic Group | Unknown | + + + Author + + + | Author | [facility] | | | and [place] | + + + | Organization | [facility] | | | and [...] Team Providers + +------+ + | Care Form Carpenter Name | Role | Phone | + [...] + + | 03/22/ | Office | [facility] | [place], | Macrocytosis | | 2019 | Visit | HEMATOLOGY AND | Juan R Gray MD | (Primary Dx); | | | | ONCOLOGY [place] | [address] | Leukopenia, | | | | [address] | [facility] [place] | unspecified type | | | | [place] | [address] | | | | | [address] | | | | | | [phone] | | | +--------+---------+ + + + [...] might be dif ferent from the original. [facility] Hematology & Oncology Hematology Progress Note Patient [...] file Gets together: Not on file Attends gnosticist service: Not on file Active member of [...] - 0.9 AI Final Testing performed at [address] [address] SS-A Autoantibody 01/24/2019 <0.2 0.0 - 0.9 AI Final Testing performed at [address] [address] Cyclic citrullinated peptide Ab.Ig* 01/24/2019 9 0 - 19 units Final Comment: Negative <20 Weak positive 20 - 39 Moderate positive 40 - 59 Strong positive >59 Testing performed by [facility], [address] [facility] [address] ESR 01/24/2019 14 0 - 30 mm/Hr Final Testing performed at [facility];[address] [place] [address];[place] [address] CRP 01/24/2019 <0.3 <0.5 mg/dL Final Testing performed at [facility];[address] [place] [address];[place] [address] Na 01/24/2019 139 135 - 145 mmol/L [...] MDRD IDMS traceable equation. Testing performed at [facility];[address] [place] [address];[place] [address] WBC 01/24/2019 3.46* 3.80 - 11.00 K/uL [...] K/uL Final Testing performed at [facility];[address] [facility];[place] [address] Assessment Ms. Nuvia Butcher is a pleasant [...] to her satisfaction. Juan R Harris MD [facility] Hematology & Oncology 03/22/2019 Portions of this [...] [place] | | | | | | [address] | | | | | | | [...]
--- OUTSIDE RECORDS SUMMARY | ~2019-04-12 | XMS | Encounter Summary ---
Demographics + + + | Address | [address] | | | [place] [address] | + + + | Home Phone | | + + + | Preferred Language | Unknown | + + + | Marital Status | Single | + + + | Yarsani Affiliation | NON | + + + | Race | White | + + + | Ethnic Group | Not or | + + + Author + + + | Author | [facility] | + + + | Organization | [facility] | + + + | Address | Unknown | + + + | Phone | Unavailable | + + + Support + + +---------+ + | Name | Relationship | Address | Phone | + + +---------+ + | Compa Zendejas | ECON | Unknown | | + + +---------+ + Care Team Providers + +------+ + | Care Inventory Accountant Name | Role | Phone | + [...] | | | back pain, | [address] | [address] | | | | | unspecified | [facility] | [facility] | | | | | back pain | Rd | [address] | | | | | laterality, | [place], [place] | [place] | | | | | unspecified | [address] | [address] | | | | | whether | Phone: | Phone: | | | | | sciatica | [phone] | [phone] | | | | | present | Fax: | Fax: | | | | | Procedures | [phone] | [phone] | | | | | PHYSICAL | [...] Pain | Diagnoses | Jean Carlos, | [employer] [facility] | | | | Management | Chronic low | MD Narciso | [address] | | | | | back pain, | [address] | [address] | | | | | unspecified | [facility] | Mailcode: | | | | | back pain | Rd | [facility] | | | | | laterality, | [place], [place] | for Health | | | | | unspecified | [address] | and Healing, | | | | | whether | Phone: | Building | | | | | sciatica | [phone] | [address] | | | | | present | Fax: | [place], [place] | | | | | Procedures | [phone] | [address] | | | | | CONSULT TO | | Phone: | | | | | PAIN | | [phone] | | | | | MANAGEMENT | | Fax: | | | | | | | [phone] | + +---------+ + + + + [...] | stenosis, | Zahira Valenzuela, | [address] [facility] [facility] | | | | | lumbar | [place] [address] | [address] | | | | | region | [address] | Rd [place], | | | | | without | [place], | [place] | | | | | neurogenic | [place] [address] | [address] | | | | | claudication | Phone: | Phone: | | | | | Procedures | [phone] | [phone] | | | | | ELVIS | Fax: | Fax: | | | | | | [phone] | [phone] | + +--------+ + + + + Encounter Details +--------+---------+ + + + | Date | Type | Department | Care Team | Description | +--------+---------+ + + + | 04/11/ | Office | Orthopaedics at | Narciso Evangelista MD | Chronic low back | | 2019 | Visit | [facility] [address] | [address] | pain, unspecified | | | | Ave Mailcode: CH12A | [place], | back pain | | | | [facility] | [place] [address] | laterality, | | | | and Healing, | [phone] | unspecified whether | | | | Building | | sciatica present | | | | Floor [place], [place] | | (Primary Dx) | | | | [address] | | | | | | [phone] | | | +--------+---------+ + + + [...]
--- OUTSIDE RECORDS SUMMARY | ~2019-04-12 | XMS | Encounter Summary ---
Demographics + + + | Address | [address] | | | [place] [address] | + + + | Home Phone | | + + + | Preferred Language | Unknown | + + + | Marital Status | | + + + | Yazidi Affiliation | Unknown | + + + | Race | Unknown | + + + | Ethnic Group | Unknown | + + + Author + + + | Author | [facility] | | | and [place] | + + + | Organization | [facility] | | | [...] Team Providers + +------+ + | Care Spooler Operator Name | Role | Phone | [...] 2019 | | [address] | Process Control Supervisor | | | | | [place] | | | | | | [address] | | | | | | [phone] | | | +--------+ + + + [...] MD | | | | | | [address] | | | | | | [place] | | | | | | [id number] | | | | | | | [...] | | | Absolute | performed at [facility];[address] | K[address]uL | LAB | | | | [facility] | | [facility] | | | | [address];[place] [address] | | LABORATORY | | + + + + + + + + | Specimen | + + | Blood | + + + + + + + | Performing | Address | City/State/Zipcode | Phone Number | | Organization | | | | + + + + + | REFERENCE LAB | [address] [place] [address] | [place] [address] | [phone] | | [facility] | Blvd. | | | | LABORATORY | | | | + + + + + | REFERENCE LAB | [address] [place] [address] | [place] [address] | | | [facility] | Blvd. | [...] | | | | | performed at [facility];[address] | | | | | | [facility] | | | | | | [facility];[place] [address] | | | | | | | | | | + + + + + + + + | Specimen | + + | Blood | + + + + + + + | Performing | Address | City/State/Zipcode | Phone Number | | Organization | | | | + + + + + | REFERENCE LAB | [address] [place] [address] | [place] [address] | [phone] | | [facility] | Blvd. | | | | LABORATORY | | | | + + + + + | REFERENCE LAB | [address] [place] [address] | [place] [address] | | | [facility] | Blvd. | [...] REFERENCE | | | | performed at [facility];[address] | | LAB | | | | [place] | | [facility] | | | | Blvd;[place] [address] | | LABORATORY | | + + + + + + + + | Specimen | + + | Blood | + + + + + + + | Performing | Address | City/State/Zipcode | Phone Number | | Organization | | | | + + + + + | REFERENCE LAB | [address] [facility] | [place] [address] | [phone] | | [facility] | Blvd[address] | | | | LABORATORY | | | | + + + + + | REFERENCE LAB | [address] [facility] | [place] [address] | | | [facility] | Blvd. | [...] [facility] | | | | Blvd;[place] [address] | | LABORATORY | | + + + + + + + + | Specimen | + + | Blood | + + + + + + + | Performing | Address | City/State/Zipcode | Phone Number | | Organization | | | | + + + + + | REFERENCE LAB | [address] [place] [address] | [place] [address] | [phone] | | [facility] | Blvd. | | | | LABORATORY | | | | + + + + + | REFERENCE LAB | [address] [place] [address] | [place] [address] | | | [facility] | Blvd. | [...] | | | | | | by [facility], [address] [place] [address] | | | | | | [place] | | | | | | [address] | | | | + + + + + + + + | Specimen | + + | Blood | + + + + + + + | Performing | Address | City/State/Zipcode | Phone Number | | Organization | | | | + + + + + | REFERENCE LAB | [address] [place] [address] | [place] [address] | [phone] | | [facility] | Blvd. | | | | LABORATORY | | | | + + + + + | REFERENCE LAB | [address] [place] [address] | [place] [address] | | | [facility] | Blvd. | [...] | | | Autoantibod | performed at [facility], [address] | | LAB | | | y | [facility] | | [facility] | | | | [place] [address] | | LABORATORY | | + + + + + + + + | Specimen | + + | Blood | + + + + + + + | Performing | Address | City/State/Zipcode | Phone Number | | Organization | | | | + + + + + | REFERENCE LAB | [address] [place] [address] | [place] [address] | [phone] | | [facility] | Blvd. | | | | LABORATORY | | | | + + + + + | REFERENCE LAB | [address] [place] [address] | [place] [address] | | | [facility] | Blvd. | [...] | | | Autoantibod | performed at [facility], [address] | | LAB | | | y | [facility] | | [facility] | | | | [place] [address] | | LABORATORY | | + + + + + + + + | Specimen | + + | Blood | + + + + + + + | Performing | Address | City/State/Zipcode | Phone Number | | Organization | | | | + + + + + | REFERENCE LAB | [address] [facility] | [place] [address] | [phone] | | [facility] | Blvd[address] | | | | LABORATORY | | | | + + + + + | REFERENCE LAB | [address] | [place] [address] | | | [facility] | Blvd. | | | | LABORATORY | | | | + + + + + documented in this encounter Visit Diagnoses + + | Diagnosis | + + | Polyarthralgia Pain in joint, multiple sites | + + documented in this encounter"
--- OUTSIDE RECORDS SUMMARY | ~2019-04-12 | XMS | Clinical Summary ---
Demographics + + + | Address | [address] | | | [place] [address] | + + + | Home Phone | | + + + | Preferred Language | Unknown | + + + | Marital Status | Single | + + + | Bahai Affiliation | NON | + + + | Race | White | + + + | Ethnic Group | Not or | + + + Author + + + | Author | [facility] | + + + | Organization | [facility] | + + + | Address | Unknown | + + + | Phone | Unavailable | + + + Support + + +---------+ + | Name | Relationship | Address | Phone | + + +---------+ + | Compa Cristiana | ECON | Unknown | | + + +---------+ + Care Team Providers + +------+ + | Care Reservoir Engineering Consultant Name | Role | Phone | + +------+ + | No Pcp Per Patient | PCP | Unavailable | + +------+ + Source Comments [facility] is fully live on both [facility] Ambulatory and [facility] InPatient.[facility] Allergies + + + + [...] | | | + +--------+ +--------+-------+---------+--------+ | MORTGAGE CLERK MEDICAID | MORTGAGE CLERK | xxxxxxxx | | | | [facility] [...] | 1965 | [phone] | [place] [address] | | | shani | | | 2 (Home) | | + +--------+ +--------+ + +
--- OUTSIDE RECORDS SUMMARY | ~2019-04-12 | XMS | Encounter Summary ---
Demographics + + + | Address | [address] | | | [place] [address] | + + + | Home Phone [...] Team Providers + +------+ + | Care Hand Rigger Name | Role | Phone | + [...] | | double | GAMA Sandhu | [address] | | | | | stranded DNA | [address] | [address] | | | | | antibody | St | [place] | | | | | test, | [place] | [address] | | | | | Chronic | [address] | Phone: | | | | | joint pain | Phone: | [phone] | | | | | | [phone] | Fax: | | | | | | | [phone] | +--------+--------+ + + + + Encounter Details +--------+---------+ + + + | Date | Type | Department | Care Team | Description | +--------+---------+ + + + | 02/21/ | Office | [facility] | Roge Chow, | Polyarthralgia | | 2019 | Visit | RHEUMATOLOGY [address] | PA-C [address] | (Primary Dx); High | | | | [address] | risk medication use; | | | | [place] | [place] [address] | Osteoarthritis, | | | | [address] | [phone] | unspecified | | | | [phone] | | osteoarthritis type, | | | [...] encounter Patient Instructions Patient Instructions Tamara Boles It Consultant - 02/21/2019 1:20 PM PDTWe hop e that you have experienced exceptional care today and that you found our service to be cour teous and helpful. ? If you have any questions/concerns or need medication refills you can send us a message/r equest using [employer] or by calling our office at [phone]. o If you would like to reach my medical translator, Paula Boles please call [phone] Ext: [phone] ? If you are unable to reach [...] can also look at your results on [employer]. If you are experiencing an emergency, please [...] hepatitis C virus (HCV)/(AIDS), L ymphoma, Sarcoidosis, Fhbui-xebwqe-iflr disease, Recent use of medications with anticholiner [...] Past Medical History: Diagnosis Date Alcoholism ([facility]) Arthritis Chemical dependency ([facility]) Depression H/O bronchitis H/O psychiatric care H/O: pneumonia Suicide attempt ([facility]) Current Outpatient Medications: albuterol 90 mcg/puff inhaler, [...] 360 hour(s)). Laboratory results were reviewed in [facility] as well as chart notes and [...] MD | | | | | | [address] | | | | | | [place] | | | | | | [id number] | | | | | | | [...]
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
--- OUTSIDE RECORDS SUMMARY | ~2019-04-12 | XMS | Encounter Summary ---
Demographics + + + | Address | [address] | | | [place] [address] | + + + | Home Phone | | + + + | Preferred Language | Unknown | + + + | Marital Status | | + + + | Oriental Orthodox Affiliation | Unknown | + + + | Race | Unknown | + + + | Ethnic Group | Unknown | + + + Author + + + | Author | [facility] | | | and [place] | + + + | Organization | [facility] | | | [...] Team Providers + +------+ + | Care Business Liaison Manager Name | Role | Phone | [...] | | test, | [place], [place] | [address] | | | | | Chronic | [address] | Phone: | | | | | joint pain | Phone: | [phone] | | | | | | [phone] | Fax: | | | | | | | [phone] | +--------+--------+ + + + + Encounter Details +--------+---------+ + + + | Date | Type | Department | Care Team | Description | +--------+---------+ + + + | 01/24/ | Office | [facility] | Tamara Way MD | Polyarthralgia | | 2019 | Visit | RHEUMATOLOGY [address] | (Primary Dx); | | | [address] | [address], [place] | Primary | | | | [place], [place] | [address] | osteoarthritis | | | | [address] | | involving multiple | | | | [phone] | | joints | +--------+---------+ + + [...] encounter Patient Instructions Patient Instructions Tiffany Irene Production Control Coordinator - 01/24/2019 7:50 AM PDTWe hope that you have experienced exceptional care today and that you found our service to be court eous and helpful. If you have any questions or need medication refills you can send us a message/request u [employer] or call our office at [phone]. To reach my [employer] type extension [phone]. If you are unable to reach a nurse during clinic hours, please leave a detailed message. We check our messages often and return calls in a timely manner during clinic hours. Orders for labs or imaging: Please remember that will only call you if something of concern needs to be addressed, otherwise all result will be discussed at your next [facility]. You can also look at your results on [employer]. If you are experiencing an emergency, please call 911 documented in this encounter Progress Notes Tamara Way MD - 01/24/2019 7:50 AM PDTFormatting of this note might be different from e original. Subjective: Reason for referral: positive dsDNA History of presenting Illness: Nuvia Zendejas is a 53 y.o. female polysubstance abuse, Chronic pain, reactive airway [facility] who came to rheumatology clinic for [...] hepatitis C virus (HCV)/(AIDS), L ymphoma, Sarcoidosis, Wpidg-ojoukt-vouy disease, Recent use of medications with anticholiner [...] H/O psychiatric care H/O: pneumonia Suicide attempt ([facility]) Past Surgical History: Procedure Laterality [...] The labs were reviewed in [facility] Assessment and Plan: Nuvia was seen today [...] symptoms This progress note was dictated using [employer] voice recognition software. Document was revie wed at time of dictation but qttsf-o-coto errors may be present. Please call with [...] [place] | | | | | | [phone] | | | | | | | [...] | | | Autoantibod | performed at [facility], [address] | | LAB | | | y | [facility] | | [place] | | | | [place] [address] | | LABORATORY | | + + + + + + + + | Specimen | + + | Blood | + + + + + + + | Performing | Address | City/State/Zipcode | Phone Number | | Organization | | | | + + + + + | REFERENCE LAB | [address] [place] [address] | [place] [address] | [phone] | | [facility] | Blvd[address] | | | | LABORATORY | | | | + + + + + | REFERENCE LAB | [address] [place] [address] | [place] [address] | | | [facility] | Blvd. | [...] | | | Autoantibod | performed at [facility], [address] | | LAB | | | y | [facility] | | [place] | | | | [place] [address] | | LABORATORY | | + + + + + + + + | Specimen | + + | Blood | + + + + + + + | Performing | Address | City/State/Zipcode | Phone Number | | Organization | | | | + + + + + | REFERENCE LAB | [address] | [place] [address] | [phone] | | [facility] | Bl[address] | | | | LABORATORY | | | | + + + + + | REFERENCE LAB | [address] | [place] [address] | | | [facility] | Blvd[address] | [...] | | | | | | by [facility], [address] [place] [address] | | | | | | [facility] | | | | | | [address] | | | | + + + + + + + + | Specimen | + + | Blood | + + + + + + + | Performing | Address | City/State/Zipcode | Phone Number | | Organization | | | | + + + + + | REFERENCE LAB | [address] | [place] [address] | [phone] | | [facility] | Blvd[address] | | | | LABORATORY | | | | + + + + + | REFERENCE LAB | [address] | [place] [address] | | | [facility] | Blvd. | [...] REFERENCE | | | | performed at [facility];[address] | | LAB | | | | [place] | | [facility] | | | | Bl[address];[place] [address] | | LABORATORY | | + + + + + + + + | Specimen | + + | Blood | + + + + + + + | Performing | Address | City/State/Zipcode | Phone Number | | Organization | | | | + + + + + | REFERENCE LAB | [address] [place] [address] | [place] [address] | [phone] | | [facility] | Blvd. | | | | LABORATORY | | | | + + + + + | REFERENCE LAB | [address] [place] [address] | [place] [address] | | | [facility] | Blvd. | [...] REFERENCE | | | | performed at [facility];[address] | | LAB | | | | [place] | | [facility] | | | | Blvd;[place] [address] | | LABORATORY | | + + + + + + + + | Specimen | + + | Blood | + + + + + + + | Performing | Address | City/State/Zipcode | Phone Number | | Organization | | | | + + + + + | REFERENCE LAB | [address] [place] [address] | [place] [address] | [phone] | | [facility] | Blvd. | | | | LABORATORY | | | | + + + + + | REFERENCE LAB | [address] [place] [address] | [place] [address] | | | [facility] | Blvd. | [...] | | | | | performed at [facility];[address] | | | | | | [facility] | | | | | | Blvd;[place] [address] | | | | | | | | | | + + + + + + + + | Specimen | + + | Blood | + + + + + + + | Performing | Address | City/State/Zipcode | Phone Number | | Organization | | | | + + + + + | REFERENCE LAB | [address] | [place] [address] | [phone] | | [facility] | Blvd[address] | | | | LABORATORY | | | | + + + + + | REFERENCE LAB | [address] | [place] [address] | | | [facility] | Blvd. | [...] | | | Absolute | performed at [facility];[address] | K/uL | LAB | | | | [place] | | [facility] | | | | Bl[address];[place] [address] | | LABORATORY | | + + + + + + + + | Specimen | + + | Blood | + + + + + + + | Performing | Address | City/State/Zipcode | Phone Number | | Organization | | | | + + + + + | REFERENCE LAB | [address] | [place] [address] | [phone] | | [facility] | Blvd. | | | | LABORATORY | | | | + + + + + | REFERENCE LAB | [address] | [place] [address] | | | [facility] | Blvd[address] | [...]
--- OUTSIDE RECORDS SUMMARY | ~2019-04-12 | XMS | Encounter Summary ---
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 | | | | | [place] | | | | | | [address] | | | | | | [phone] | | | +--------+ + + + [...] MD | | | | | | [address] | | | | | | [place] | | | | | | [id number] | | | | | | | [...] | | | Absolute | performed at [facility];[address] | K[address] | LAB | | | | [facility] | | [facility] | | | | Blvd;[place] [address] | | LABORATORY | | + + + + + + + + | Specimen | + + | Blood | + + + + + + + | Performing | Address | City/State/Zipcode | Phone Number | | Organization | | | | + + + + + | REFERENCE LAB | [address] [place] [address] | [place] [address] | [phone] | | [facility] | Blvd[address] | | | | LABORATORY | | | | + + + + + | REFERENCE LAB | [address] [place] [address] | [place] [address] | | | [facility] | Blvd. | [...] | | | | | performed at [facility];[address] | | | | | | [facility] | | | | | | [facility];[place] [address] | | | | | | | | | | + + + + + + + + | Specimen | + + | Blood | + + + + + + + | Performing | Address | City/State/Zipcode | Phone Number | | Organization | | | | + + + + + | REFERENCE LAB | [address] [place] [address] | [place] [address] | [phone] | | [facility] | Blvd. | | | | LABORATORY | | | | + + + + + | REFERENCE LAB | [address] [place] [address] | [place] [address] | | | [facility] | Blvd. | [...] REFERENCE | | | | performed at [facility];[address] | | LAB | | | | [place] | | [facility] | | | | Blvd;[place] [address] | | LABORATORY | | + + + + + + + + | Specimen | + + | Blood | + + + + + + + | Performing | Address | City/State/Zipcode | Phone Number | | Organization | | | | + + + + + | REFERENCE LAB | [address] | [place] [address] | [phone] | | [facility] | Blvd[address] | | | | LABORATORY | | | | + + + + + | REFERENCE LAB | [address] | [place] [address] | | | [facility] | Blvd. | [...] [facility] | | | | Blvd;[place] [address] | | LABORATORY | | + + + + + + + + | Specimen | + + | Blood | + + + + + + + | Performing | Address | City/State/Zipcode | Phone Number | | Organization | | | | + + + + + | REFERENCE LAB | [address] [place] [address] | [place] [address] | [phone] | | [facility] | Blvd. | | | | LABORATORY | | | | + + + + + | REFERENCE LAB | [address] [place] [address] | [place] [address] | | | [facility] | Blvd. | [...] | | | | | | by [facility], [address] [place] [address] | | | | | | [place] | | | | | | [address] | | | | + + + + + + + + | Specimen | + + | Blood | + + + + + + + | Performing | Address | City/State/Zipcode | Phone Number | | Organization | | | | + + + + + | REFERENCE LAB | [address] [place] [address] | [place] [address] | [phone] | | [facility] | Blvd. | | | | LABORATORY | | | | + + + + + | REFERENCE LAB | [address] [place] [address] | [place] [address] | | | [facility] | Blvd. | [...] | | | Autoantibod | performed at [facility], [address] | | LAB | | | y | [facility] | | [place] | | | | [place] [address] | | LABORATORY | | + + + + + + + + | Specimen | + + | Blood | + + + + + + + | Performing | Address | City/State/Zipcode | Phone Number | | Organization | | | | + + + + + | REFERENCE LAB | [address] [place] [address] | [place] [address] | [phone] | | [facility] | Blvd. | | | | LABORATORY | | | | + + + + + | REFERENCE LAB | [address] [place] [address] | [place] [address] | | | [facility] | Blvd. | [...] | | | Autoantibod | performed at [facility], [address] | | LAB | | | y | [facility] | | [place] | | | | [place] [address] | | LABORATORY | | + + + + + + + + | Specimen | + + | Blood | + + + + + + + | Performing | Address | City/State/Zipcode | Phone Number | | Organization | | | | + + + + + | REFERENCE LAB | [address] | [place] [address] | [phone] | | [facility] | Blvd[address] | | | | LABORATORY | | | | + + + + + | REFERENCE LAB | [address] | [place] [address] | | | [facility] | Blvd. | | | | LABORATORY | | | | + + + + + documented in this encounter Visit Diagnoses + + | Diagnosis | + + | Polyarthralgia Pain in joint, multiple sites | + + documented in this encounter"
--- OUTSIDE RECORDS SUMMARY | 2019-04-12 18:06 | XMS ---
PreManage Notification: ROSS BUTCHER Security Spares Scheduler Events No recent Security Events currently on file CRITERIA MET - 6 ED Visits in 6 Months - [facility] - Has Care Guidelines - [facility] - 3 Facilities in 90 Days - PDMP - [facility] - 2 Visits in 30 Days CARE PROVIDERS WALLACE CHUA [facility] 10/10/2017-Current PHONE: Unknown Niko Maddox Community Health Worker 03/02/2019-Current PHONE: [phone] BLANQUITA [facility]: Critical 01/22/2018-Current [facility] PHONE: [phone] Hayes Pepe Counselor: Mental Health 03/14/2015-Current PHONE: [phone] FAUSTO LIZAMA [facility] Current PHONE: Unknown HARMEET MOSES Primary [facility] Current PHONE: Unknown BRIANA TAYLOR Primary [facility] 01/23/2018-Current JAZMIN JUARES PHONE: [phone] PATRICIA ALBRIGHT Primary Care Current PHONE: Unknown HARSHIL GONSALEZ Primary Care 10/10/2017-Current PHONE: [phone] [facility] 05/10/2016-11/28/2015 [facility] PHONE: [phone] HARSHIL GONSALEZ [facility] Current PHONE: Unknown BK TAPIA Primary Care Current PHONE: Unknown Hayes Pepe [facility] 03/14/2015-Current PHONE: [phone] ELFEGO ABBASI Primary Care Current PHONE: Unknown JAZZ VALLADARES Primary Care Current PHONE: Unknown Patricia Albright Primary Care Current PHONE: Unknown [facility] 04/14/2015-Current [facility] [employer] [facility] \T\ FAMILY HEALTH PHONE: [phone] CAROL DOE Primary Care Current PHONE: [phone] Vel has no Care Guidelines for this patient. Care History Substance Use/Overdose 03/06/2019 [facility] Client and refusing detox - \T\quot;it doesn\T\#39;t work\T\quot;.\T\ nbsp; Provided with Peer Support information for [facility], local AA programs.\T\nbsp; Please contact Niko at [phone] if client comes into ER.\T\nbsp; Will re-attempt to engage in services. Medical/Surgical 03/05/2019 [facility] - DUE TO PATIENT COMPLEX HEALTH AND MENTAL HEALTH HISTORY-[facility] REFERRAL WAS MADE FOR FURTHER COMPLEX CASE MANAGEMENT FOR PHYSICAL AND MENTAL HEALTH NEEDS. Km VISIT COUNT (12 MO.) 1 [facility] 8 [facility] 3 [facility]. TOTAL 12 NOTE: Visits indicate total known visits. ED/UCC VISIT TRACKING (12 MO.) 04/12/2019 18:03 [facility] [place] TYPE: Emergency COMPLAINT: - BREATHING CONCERNS 04/12/2019 17:01 [facility] [place] TYPE: Emergency DIAGNOSES: - SHORTNESS OF BREATH 03/05/2019 01:56 [facility] [place] TYPE: Emergency DIAGNOSES: - Other psychoactive substance abuse, uncomplicated - INTOXICATED 03/04/2019 13:50 [facility] [place] TYPE: Emergency COMPLAINT: - URINATION PROBLEMS DIAGNOSES: - Allergy status to sulfonamides status - Retention of urine, unspecified - Alcohol abuse, uncomplicated - Nicotine dependence, unspecified, uncomplicated - Urinary tract infection, site not specified 03/01/2019 23:16 [facility] [place] TYPE: Emergency DIAGNOSES: - OVERDOSE 02/27/2019 20:22 [facility] TYPE: Emergency COMPLAINT: - Abdominal Pain DIAGNOSES: - Retention of urine, unspecified - Alcohol use, unspecified with intoxication, uncomplicated - Unspecified abdominal pain - Abdominal Pain 2019 17:47 [facility] [place] TYPE: Emergency DIAGNOSES: - Poisoning by unsp narcotics, intentional self-harm, init - overdose - Alcohol use, unspecified with intoxication, uncomplicated 01/14/2019 22:[address] [facility] [place] TYPE: Emergency COMPLAINT: - ABDOMINAL PAIN DIAGNOSES: - Anxiety disorder, unspecified - Other chcf (current) drug therapy - Major depressive disorder, single episode, unspecified - Generalized abdominal pain - Dvrtclos of intest, part unsp, w/o perf or abscess w/o bleed - Nicotine dependence, unspecified, uncomplicated - Gastro-esophageal reflux disease without esophagitis - Allergy status to sulfonamides status 01/10/2019 10:03 [facility] [place] TYPE: Emergency DIAGNOSES: - VOMITING BLOOD 10/20/2018 15:52 [facility] [place] TYPE: Emergency DIAGNOSES: - Alcoholic gastritis without bleeding - Alcohol abuse, uncomplicated - Alcohol dependence with withdrawal, uncomplicated - ABD PAIN 10/19/2018 15:58 [facility] [place] TYPE: Emergency DIAGNOSES: - Alcohol use, unspecified with intoxication, uncomplicated - DEHYDRATION 05/17/2018 10:41 [facility] [place] TYPE: Emergency DIAGNOSES: - Dvrtclos of lg int w/o perforation or abscess w/o bleeding - Pure hyperglyceridemia - POSS PANCREATITIS - Alcohol use, unspecified with intoxication, unspecified - Encntr screen mammogram for malignant neoplasm of breast - Acute gastritis without bleeding INPATIENT VISIT TRACKING (12 MO.) No inpatient visits to display in this time frame [email or web address]
[2019-04-12] MEDS ORDERED: PREDNISONE20 MG PO (19:11)
== END 2019-04-12 19:19 | disposition home or self-care (01) ==
LOC: ED 18:03
DX: J44.1 Chronic obstructive pulmonary disease with (acute) exacerbation (principal); G89.29 Other chronic pain; M54.5 Low back pain; F41.9 Anxiety disorder, unspecified; F32.9 Major depressive disorder, single episode, unspecified; F17.200 Nicotine dependence, unspecified, uncomplicated; Z88.2 Allergy status to sulfonamides
CPT/HCPCS: 94640; 99284-25; 99406; J7512

== ENCOUNTER 2019-04-17 08:02 | Emergency (ER) | payer OTHER ==
[~2019-04-17] VITALS: Ht 167.6 cm; Wt 83.9 kg
--- OUTSIDE RECORDS SUMMARY | ~2019-04-17 | XMS | Encounter Summary ---
Demographics + + + | Address | [address] | | | [place] [address] | + + + | Home Phone | | + + + | Preferred Language | Unknown | + + + | Marital Status | | + + + | Adventism Affiliation | Unknown | + + + | Race | Unknown | + + + | Ethnic Group | Unknown | + + + Author + + + | Author | [facility] | | | and [place] | + + + | Organization | [facility] | | | and [place] | + + + | Address | Unknown | + + + | Phone | Unavailable | + + + Support + + +---------+ + | Name | Relationship | Address | Phone | + + +---------+ + | Compa Zendejas | ECON | Unknown | | + + +---------+ + Care Team Providers + +------+ + | Care Cylinder Honer Name | Role | Phone | + +------+ + | Bhakti Dietz PA-C | PCP | | + +------+ + Reason for Visit + + + | Reason | Comments | + + + | New Patient | | + + + Evaluate & Treat (Routine) +--------+--------+ + + + + | Status | Reason | Specialty | Diagnoses / | Referred By | Referred To | | | | | Procedures | Contact | Contact | +--------+--------+ + + + + | Closed | | | Diagnoses | Neyda Dietz | | | | | Positive | Bhakti | Rheumatology | | | | | double | GAMA Sandhu | [address] | | | | | stranded DNA | [address] | [address] | | | | | antibody | St | [place] | | | | | test, | [place], [place] | [address] | | | | | Chronic | [address] | Phone: | | | | | joint pain | Phone: | [phone] | | | | | | [phone] | Fax: | | | | | | | [phone] | +--------+--------+ + + + + Encounter Details +--------+---------+ + + + | Date | Type | Department | Care Team | Description | +--------+---------+ + + + | 01/24/ | Office | [facility] | Tamara Way MD | Polyarthralgia | | 2019 | Visit | RHEUMATOLOGY [address] | (Primary Dx); | | | | [address] | [address] [place], [place] | Primary | | | | [place], [place] | [address] | osteoarthritis | | | | [address] | | involving multiple | | | | [phone] | | joints | +--------+---------+ + + + Social History + +-------+ +--------+------+ | Tobacco Use | Types | Packs/Day | Years | Date | | | | | Used | | + +-------+ +--------+------+ | Current Every Day | | | | | | Smoker | | | | | + +-------+ +--------+------+ + +---+---+---+ | Smokeless Tobacco: | | | | | Never Used | | | | + +---+---+---+ + + +---------+ + | Alcohol Use | Drinks/Week | oz/Week | Comments | + + +---------+ + | Not Currently | | | | + + +---------+ + + + + | Sex Assigned at | Date Recorded | | | | + + + | Not on file | | + + + + + + + | Job Start Date | Occupation | Industry | + + + + | Not on file | Not on file | Not on file | + + + + + + + + | Travel History | Travel Start | Travel End | + + + + + + | No recent travel history available. | + + documented as of this encounter Last Filed Vital Signs + + + + + | Vital Sign | Reading | Time Taken | Comments | + + + + + | Blood Pressure | 125/84 | 01/24/2019 7:45 AM | | | | | PDT | | + + + + + | Pulse | 76 | 01/24/2019 7:45 AM | | | | | PDT | | + + + + + | Temperature | 36.7 C (98 F) | 01/24/2019 7:45 AM | | | | | PDT | | + + + + + | Respiratory Rate | - | - | | + + + + + | Oxygen Saturation | - | - | | + + + + + | Inhaled Oxygen | - | - | | | Concentration | | | | + + + + + | Weight | 85 kg (187 lb 6.4 | 01/24/2019 7:45 AM | | | | oz) | PDT | | + + + + + | Height | - | - | | + + + + + | Body Mass Index | 27.67 | 11/16/2018 1:13 PM | | | | | PDT | | + + + + + documented in this encounter Patient Instructions Patient Instructions Tiffany Irene Gold Miner - 01/24/2019 7:50 AM PDTWe hope that you have experienced exceptional care today and that you found our service to be court eous and helpful. If you have any questions or need medication refills you can send us a message/request u [employer] or call our office at [phone]. To reach my [employer] type extension [phone]. If you are unable to reach a nurse during clinic hours, please leave a detailed message. We check our messages often and return calls in a timely manner during clinic hours. Orders for labs or imaging: Please remember that will only call you if something of concern needs to be addressed, otherwise all result will be discussed at your next [facility] e visit. You can also look at your results on [employer]. If you are experiencing an emergency, please call 911 documented in this encounter Progress Notes Tamara Way MD - 01/24/2019 7:50 AM PDTFormatting of this note might be different from e original. Subjective: Reason for referral: positive dsDNA History of presenting Illness: Nuvia Zendejas is a 53 y.o. female polysubstance abuse, Chronic pain, reactive airway [facility] who came to rheumatology clinic for new patient evaluation of positive dsDNA. Joint joint: Joints involved are lower back, upper back, shoulder, elbows, wrist, knees and ankle joints . The problem has been present for several years. Symptoms include pain, swelling, morning stiffness, lasting less than 15 minutes, limited range of motion of neck and lower back. Ons et was gradual. The symptoms are of moderate severity. They are made worse by: cold exposu re and increased activity. They are helped by rest and pain medication. Associated symptom s include: fatigue. Previously used rheumatologic medications include none. Limitation on activities include: d ifficulty with walking. Rheumatology Family Hx: Mom with RA Ocular symptoms Do you have a recurrent sensation of sand or gravel in the eyes: yes Have you had daily, persistent, troublesome dry eyes for more than three months: yes Do you use tear substitutes more than three times a day: yes Oral symptoms Have you had a daily feeling of dry mouth for more than three months: yes Do you have to wake up at night to drink water because your mouth is so dry: yes Do you frequently drink liquids to aid in swallowing dry food: yes Have you had recurrently or persistently swollen salivary glands as an adult: no gland swel ling: no Denies Prior head and/or neck irradiation, Infection with hepatitis C virus (HCV)/(AIDS), L ymphoma, Sarcoidosis, Hieau-ttzcvm-rssn disease, Recent use of medications with anticholiner gic properties Previous Report Reviewed: lab reports and office notes Allergies Allergen Reactions Codeine Itching Demeclocycline Other (See Comments) Hydrocodone Itching Morphine Itching Oxycodone Itching Oxycodone-Acetaminophen Itching Prednisone Rash Rash, Other reaction(s): Other (See Comments) Tetracycline Other (See Comments) Current Outpatient Medications on File Prior to Visit Medication Sig Dispense Refill albuterol 90 mcg/puff inhaler INHALE TWO PUFFS BY MOUTH EVERY 4 HOURS NEEDED FOR CAROLINE RTNESS OF BREATH buPROPion (WELLBUTRIN XL) 300 mg 24 hr tablet Take 300 mg by mouth. docusate sodium (COLACE) 100 mg capsule Take 100 mg by mouth daily. ipratropium (ATROVENT HFA) 17 mcg/puff inhaler Inhale 2 puffs into the lungs 2 (two) ti mes daily as needed. loratadine-pseudoePHEDrine (CLARITIN-D 24-HOUR) 10-240 mg per tablet Take 1 tablet by merritt chew. narenoxicam (MOBIC) 15 mg tablet Take 15 mg by mouth daily. omeprazole (PRILOSEC) 20 mg capsule Take 20 mg by mouth daily. pantoprazole (PROTONIX) 40 mg tablet Take 40 mg by mouth. traZODone (DESYREL) 50 mg tablet Take 200 mg by mouth nightly. No current facility-administered medications on file prior to visit. Family History Problem Relation Age of Onset Anemia Maternal Grandmother Lung cancer Paternal Grandmother Cancer Paternal Grandmother Past Medical History: Diagnosis Date Alcoholism (HCC) Arthritis Chemical dependency (HCC) Depression H/O bronchitis H/O psychiatric care H/O: pneumonia Suicide attempt ([facility]) Past Surgical History: Procedure Laterality Date SECTION COLONOSCOPY 2016 [place] HYSTERECTOMY OTHER SURGICAL HISTORY 1987 ROTATOR CUFF REPAIR 2004 TONSILLECTOMY AND ADENOIDECTOMY Social History Socioeconomic History Marital status: Spouse name: Not on file Number of children: Not on file Years of education: Not on file Highest education level: Not on file Social Needs Financial resource strain: Not on file Food insecurity - worry: Not on file Food insecurity - inability: Not on file Transportation needs - medical: Not on file Transportation needs - non-medical: Not on file Occupational History Not on file Tobacco Use Smoking status: Current Every Day Smoker Substance and Sexual Activity Alcohol use: Not on file Drug use: Not on file Sexual activity: Not on file Review of Systems Review of Systems Constitutional: Positive for chills and malaise/fatigue. Negative for fever. HENT: Positive for congestion. Negative for hearing loss, nosebleeds, sinus pain and sore t hroat. Eyes: Positive for blurred vision. Negative for photophobia, pain and redness (dry). Respiratory: Positive for cough and shortness of breath. Negative for hemoptysis. Cardiovascular: Positive for leg swelling. Negative for chest pain. Gastrointestinal: Positive for abdominal pain, constipation, diarrhea, heartburn and nausea . Negative for blood in stool and vomiting. Genitourinary: Positive for frequency and urgency. Negative for dysuria and hematuria. Musculoskeletal: Positive for back pain, joint pain, myalgias and neck pain. Skin: Positive for itching and rash. Neurological: Positive for dizziness, seizures (not sure told she had one the other night?), weakness (muscle) and headaches. Psychiatric/Behavioral: Positive for depression. The patient is nervous/anxious and has ins omnia. ITamara MD reviewed the above ROS. Objective: BP 125/84 | Pulse 76 | Temp 36.7 C (98 F) (Oral) | Wt 85 kg (187 lb 6.4 oz) | BMI 27.67 kg/m Physical Exam General: alert, appears stated age and cooperative HEENT: Normocephalic, without obvious abnormality, atraumatic conjunctivae/corneas clear. PERRL, EOM's intact. Mucosa normal, No mucosal ulcers. Malar rash is absent Lungs: clear to auscultation bilaterally Heart: regular rate and rhythm, S1, S2 normal, no murmur, click, rub or gallop Abdomen: soft, non-tender; bowel sounds normal; no masses, no organomegaly Joint Review: Musculoskeletal examination of the RIGHT and LEFT upper extremity, RIGHT and LEFT lower extremity, spine, ribs ,pelvis ,head and neck was performed Musculoskeletal exam reveals Hands: No swelling or tenderness noted at 1-5 MCP joints, first IP joint, 2-5 PIP joints, 2 -5, DIP joints Appears well without signs of intrinsic wasting. Able to make a full composite fist. 1st CMC grind test: negative Wrist: No swelling or tenderness is noted. Has normal flexion and extension Elbow: No swelling or tenderness is noted. Has normal flexion, extension, pronation and sup ination Shoulders: No swelling or tenderness is noted. Has normal abduction, adduction, flexion, ex tension, internal rotation and external rotation Cervical spine: Has normal forward flexion, extension, lateral flexion and extension Thoracic spine: Normal Lumbo-sacral spine: Has normal forward flexion, extension, lateral flexion and extension There is tenderness in the midline of the cervical,Thoracic and lumbar spine. There is no m ajor palpable deformity of the spine. Straight leg raise and slump-sit are negative. Hips: Has normal flexion, extension, adduction, abduction, external rotation and internal r otation Knees: Has normal flexion, extension with no crepitus or swelling Ankles: Has normal Plantar flexion, extension, inversion and eversion Feet: Normal 1-5 MTP joints with no synovitis or tenderness Extremities: extremities normal, atraumatic, no cyanosis or edema Skin: Skin color, texture, turgor normal. No rashes or lesions Neurologic: Grossly normal Imaging: The X-rays were reviewed in [facility] Lab Review: The labs were reviewed in [facility] Assessment and Plan: Nuvia was seen today for new patient. Diagnoses and all orders for this visit: Polyarthralgia: Nuvia Zendejas is a 53 y.o. female polysubstance abuse, Chronic pain, reactive airway wit h who came to rheumatology clinic for new patient evaluation of positive dsDNA. Joints involved are lower back, upper back, shoulder, elbows, wrist, knees and ankle joints . The problem has been present for several years. Symptoms include pain, swelling, morning stiffness, lasting less than 15 minutes, limited range of motion of neck and lower back. Has non-inflammatory joint pain. She does have positive DANTE 1:80 but denies clinical features o f SLE like recurrent oral sores, scarring alopecia, fever, weight loss, serositis, renal keo lure. She has elevated liver enzymes from chronic alcohol abuse. She gives history of sicca symptoms, fatigue hence will evaluate for Sjogren's syndrome. - CBC with Differential; Future - Comprehensive Metabolic Panel; Future - C-Reactive Protein; Future - Sedimentation Rate; Future - CCP Antibodies, IgG IgA; Future - SS-A RO Ab,IgG, Serum; Future - SS-B LA Ab, IgG, Serum; Future - XR Hand Left 2 Vw; Future - XR Hand Right 2 Vw; Future - XR Foot Left 3 + Vw; Future - XR Foot Right 3 + Vw; Future Primary osteoarthritis involving multiple joints: Discussed briefly the diagnosis and treatment of OA. Risk factors include: ? Older age ? Having family members with OA ? Obesity ? Joint injury or repetitive use (overuse) of joints ? Joint deformity such as unequal leg length, bowlegs or knocked knees How is osteoarthritis treated? There is no proven treatment yet that can reverse joint damage from OA. The goal of treatme nt is to reduce pain and improve function of the affected joints. Most often, this is possib le with a mixture of physical measures and drug therapy and, sometimes, surgery. Physical measures Weight loss and exercise are useful in OA. Excess weight puts stress on your knee joints and hips and low back. For every 10 pounds of weight you lose over 10 ye ars, you can reduce the chance of developing knee OA by up to 50%. Exercise can improve your muscle strength, decrease joint pain and stiffness, and lower the chance of disability due to OA. Drug Therapy Oral pain relievers such as acetaminophen are common first treatments. So a re nonsteroidal anti-inflammatory drugs (often called NSAIDs), which decrease swelling and p ain. Joint injections with corticosteroids (sometimes called cortisone shots) or with a form of lubricant called hyaluronic acid can give months of pain relief from OA. This lubricant is g iven in the knee, and these shots may help delay the need for a knee replacement by a few ye ars in some patients. Surgery Surgical treatment becomes an option for severe cases. This includes when the j oint has serious damage, or when medical treatment fails to relieve pain and you have major loss of function. Surgery may involve arthroscopy, repair of the joint done through small in cisions (cuts). If the joint damage cannot be repaired, you may need a joint replacement. Living with osteoarthritis ? Properly position and support your neck and back while sitting or sleeping. ? Adjust furniture, such as raising a chair or toilet seat. ? Avoid repeated motions of the joint, especially frequent bending. ? Lose weight if you are overweight or obese, which can reduce pain and slow progression of OA. ? Exercise each day. ? Use arthritis support devices that will help you do daily activities ? You might want to work with a physical therapist or occupational therapist to learn the b est exercises and to choose arthritis assistive devices. Points to remember There is no cure for OA, but you can manage how it affects your lifestyle. ? OA is the most common form of arthritis and can occur together with other types of arthri tis. ? The goal of treatment in OA is to reduce pain and improve function. ? Exercise is an important part of OA treatment because it can decrease joint pain and impr ove function. ? At present, there is no treatment that can reverse the damage of OA in the joints. Resear chers are trying to find ways to slow or reverse this joint damage. Patient was given ample opportunity to ask questions. Patient will follow up with their primary care physician in regards to non-rheumatological symptoms listed under review of systems Patient was advised to contact our office if there are any change in their symptoms This progress note was dictated using [employer] voice recognition software. Document was revie wed at time of dictation but [id number] errors may be present. Please call with any quest ions or clarifications Mackenzie mented in this encounter Plan of Treatment +--------+---------+ + + + | Date | Type | Specialty | Care Team | Description | +--------+---------+ + + + | 07/18/ | Office | Oncology | Kimberly, | | | 2019 | Visit | | Juan R Gray MD | | | | | | [address] | | | | | | [place] | | | | | | [address] | | | | | | | | +--------+---------+ + + + + +---------+--------+ + + | Name | Type | Priori | Associated Diagnoses | Order Schedule | | | | ty | | | + +---------+--------+ + + | XR Hand Left 2 Vw | Imaging | Routin | Polyarthralgia | Expected: | | | | e | | 01/24/2019, Expires: | | | | | | 01/25/2020 | + +---------+--------+ + + | XR Hand Right 2 Vw | Imaging | Routin | Polyarthralgia | Expected: | | | | e | | 01/24/2019, Expires: | | | | | | 01/25/2020 | + +---------+--------+ + + | XR Foot Left 3 + Vw | Imaging | Routin | Polyarthralgia | Expected: | | | | e | | 01/24/2019, Expires: | | | | | | 01/25/2020 | + +---------+--------+ + + | XR Foot Right 3 + Vw | Imaging | Routin | Polyarthralgia | Expected: | | | | e | | 01/24/2019, Expires: | | | | | | 01/25/2020 | + +---------+--------+ + + documented as of this encounter Results SS-B LA Ab, IgG, Serum (01/24/2019 8:13 AM PDT) + + + + + + | Component | Value | Ref Range | Performed | Pathologist | | | | | At | Signature | + + + + + + | SS-B | <0.2Comment: Testing | 0.0 - 0.9 AI | REFERENCE | | | Autoantibod | performed at [facility], [address] | | LAB | | | y | [facility] | | [place] | | | | [place] [address] | | LABORATORY | | + + + + + + + + | Specimen | + + | Blood | + + + + + + + | Performing | Address | City/State/Zipcode | Phone Number | | Organization | | | | + + + + + | REFERENCE LAB | [address] [place] [address] | [place] [address] | [phone] | | [facility] | Bl[address] | | | | LABORATORY | | | | + + + + + | REFERENCE LAB | [address] [place] [address] | [place] [address] | | | [facility] | Blvd[address] | | | | LABORATORY | | | | + + + + + SS-A RO Ab,IgG, Serum (01/24/2019 8:13 AM PDT) + + + + + + | Component | Value | Ref Range | Performed | Pathologist | | | | | At | Signature | + + + + + + | SS-A | <0.2Comment: Testing | 0.0 - 0.9 AI | REFERENCE | | | Autoantibod | performed at [facility], [address] | | LAB | | | y | [facility] | | [place] | | | | [place] [address] | | LABORATORY | | + + + + + + + + | Specimen | + + | Blood | + + + + + + + | Performing | Address | City/State/Zipcode | Phone Number | | Organization | | | | + + + + + | REFERENCE LAB | [address] [facility] [facility] [address] | [place] [address] | [phone] | | [facility] | Blvd[address] | | | | LABORATORY | | | | + + + + + | REFERENCE LAB | [address] [facility] | [place] [address] | | | [facility] | Blvd[address] | | | | LABORATORY | | | | + + + + + CCP Antibodies, IgG IgA (01/24/2019 8:13 AM PDT) + + + + + + | Component | Value | Ref Range | Performed | Pathologist | | | | | At | Signature | + + + + + + | Cyclic | 9Comment: | 0 - 19 units | REFERENCE | | | citrullinat | | | LAB | | | ed peptide | Negative | | [facility] | | | Ab.IgA+IgG | <20 | | LABORATORY | | | | | | | | | | Weak positive 20 | | | | | | - 39 | | | | | | | | | | | | Moderate positive 40 - | | | | | | 59 | | | | | | Strong | | | | | | positive | | | | | | >59Testing performed | | | | | | by [facility], [address] [place] [address] | | | | | | [facility] | | | | | | [address] | | | | + + + + + + + + | Specimen | + + | Blood | + + + + + + + | Performing | Address | City/State/Zipcode | Phone Number | | Organization | | | | + + + + + | REFERENCE LAB | [address] [facility] | [place] [address] | [phone] | | [facility] | Blvd[address] | | | | LABORATORY | | | | + + + + + | REFERENCE LAB | [address] [facility] | [place] [address] | | | [facility] | Blvd[address] | | | | LABORATORY | | | | + + + + + Sedimentation Rate (01/24/2019 8:13 AM PDT) + + + + + + | Component | Value | Ref Range | Performed | Pathologist | | | | | At | Signature | + + + + + + | ESR | 14Comment: Testing | 0 - 30 mm/Hr | REFERENCE | | | | performed at [facility];[address] | | LAB | | | | [place] | | [place] | | | | [address];[place] [address] | | LABORATORY | | + + + + + + + + | Specimen | + + | Blood | + + + + + + + | Performing | Address | City/State/Zipcode | Phone Number | | Organization | | | | + + + + + | REFERENCE LAB | [address] [place] [address] | [place] [address] | [phone] | | [facility] | Blvd[address] | | | | LABORATORY | | | | + + + + + | REFERENCE LAB | [address] [place] [address] | [place] [address] | | | [facility] | Blvd[address] | | | | LABORATORY | | | | + + + + + C-Reactive Protein (01/24/2019 8:13 AM PDT) + + + + + + | Component | Value | Ref Range | Performed | Pathologist | | | | | At | Signature | + + + + + + | CRP | <0.3Comment: Testing | <0.5 mg/dL | REFERENCE | | | | performed at [facility];[address] | | LAB | | | | [place] | | [facility] | | | | [address];[place] [address] | | LABORATORY | | + + + + + + + + | Specimen | + + | Blood | + + + + + + + | Performing | Address | City/State/Zipcode | Phone Number | | Organization | | | | + + + + + | REFERENCE LAB | [address] [place] [address] | [place] [address] | [phone] | | [facility] | Blvd[address] | | | | LABORATORY | | | | + + + + + | REFERENCE LAB | [address] [place] [address] | [place] [address] | | | [facility] | Blvd[address] | | | | LABORATORY | | | | + + + + + Comprehensive Metabolic Panel (01/24/2019 8:13 AM PDT) + + + + + + | Component | Value | Ref Range | Performed | Pathologist | | | | | At | Signature | + + + + + + | Na | 139 | 135 - 145 | REFERENCE | | | | | mmol/L | LAB | | | | | | [facility] | | | | | | LABORATORY | | + + + + + + | K | 4.1 | 3.5 - 4.9 | REFERENCE | | | | | mmol/L | LAB | | | | | | [facility] | | | | | | LABORATORY | | + + + + + + | Cl | 103 | 99 - 109 mmol/L | REFERENCE | | | | | | LAB | | | | | | [facility] | | | | | | LABORATORY | | + + + + + + | CO2 | 32 | 23 - 32 mmol/L | REFERENCE | | | | | | LAB | | | | | | [facility] | | | | | | LABORATORY | | + + + + + + | Anion Gap | 8 | 5 - 20 mmol/L | REFERENCE | | | | | | LAB | | | | | | [facility] | | | | | | LABORATORY | | + + + + + + | Glucose | 85 | 65 - 99 mg/dL | REFERENCE | | | | | | LAB | | | | | | [facility] | | | | | | LABORATORY | | + + + + + + | BUN | 9 | 8 - 25 mg/dL | REFERENCE | | | | | | LAB | | | | | | [facility] | | | | | | LABORATORY | | + + + + + + | Creatinine | 0.8 | 0.50 - 1.00 | REFERENCE | | | | | mg/dL | LAB | | | | | | [facility] | | | | | | LABORATORY | | + + + + + + | BUN/Creatin | 11 | | REFERENCE | | | ine Ratio | | | LAB | | | | | | [facility] | | | | | | LABORATORY | | + + + + + + | Calcium | 9.2 | 8.5 - 10.5 | REFERENCE | | | | | mg/dL | LAB | | | | | | [facility] | | | | | | LABORATORY | | + + + + + + | Protein, | 7.3 | 6.3 - 8.2 g/dL | REFERENCE | | | Total | | | LAB | | | | | | [facility] | | | | | | LABORATORY | | + + + + + + | Albumin | 3.9 | 3.6 - 5.0 g/dL | REFERENCE | | | | | | LAB | | | | | | [facility] | | | | | | LABORATORY | | + + + + + + | Globulin | 3.4 | 1.3 - 4.9 g/dL | REFERENCE | | | | | | LAB | | | | | | [facility] | | | | | | LABORATORY | | + + + + + + | A/G Ratio | 1.1 | 1.0 - 2.4 | REFERENCE | | | | | | LAB | | | | | | [facility] | | | | | | LABORATORY | | + + + + + + | BILIRUBIN, | 0.4 | 0.1 - 1.5 mg/dL | REFERENCE | | | TOTAL | | | LAB | | | | | | [facility] | | | | | | LABORATORY | | + + + + + + | ALK PHOS | 65 | 35 - 115 U/L | REFERENCE | | | | | | LAB | | | | | | [facility] | | | | | | LABORATORY | | + + + + + + | AST | 22 | 10 - 45 U/L | REFERENCE | | | | | | LAB | | | | | | [facility] | | | | | | LABORATORY | | + + + + + + | ALT | 30 | 10 - 65 U/L | REFERENCE | | | | | | LAB | | | | | | [facility] | | | | | | LABORATORY | | + + + + + + | Estimated | >60Comment: GFR <60: | >60 | REFERENCE | | | GFR | CHRONIC KIDNEY DISEASE, | mL/min/1.73m2 | LAB | | | | IF FOUND OVER A 3 MONTH | | [facility] | | | | PERIOD.GFR <15: KIDNEY | | LABORATORY | | | | FAILURE.FOR | | | | | | AMERICANS, MULTIPLY THE | | | | | | CALCULATED GFR BY | | | | | | 1.210.This eGFR is | | | | | | calculated using the | | | | | | MDRD IDMS traceable | | | | | | equation.Testing | | | | | | performed at [facility];[address] | | | | | | [facility] | | | | | | Blvd;[place] [address] | | | | | | | | | | + + + + + + + + | Specimen | + + | Blood | + + + + + + + | Performing | Address | City/State/Zipcode | Phone Number | | Organization | | | | + + + + + | REFERENCE LAB | [address] | [place] [address] | [phone] | | [facility] | Bl[address] | | | | LABORATORY | | | | + + + + + | REFERENCE LAB | [address] | [place] [address] | | | [facility] | Blvd[address] | | | | LABORATORY | | | | + + + + + CBC with Differential (01/24/2019 8:13 AM PDT) + + + + + + | Component | Value | Ref Range | Performed | Pathologist | | | | | At | Signature | + + + + + + | WBC | 3.46 (L) | 3.80 - 11.00 | REFERENCE | | | | | K/uL | LAB | | | | | | [facility] | | | | | | LABORATORY | | + + + + + + | RBC | 3.92 | 3.70 - 5.10 | REFERENCE | | | | | M/uL | LAB | | | | | | [facility] | | | | | | LABORATORY | | + + + + + + | Hemoglobin | 13.4 | 11.3 - 15.5 | REFERENCE | | | | | g/dL | LAB | | | | | | [facility] | | | | | | LABORATORY | | + + + + + + | Hematocrit | 39.6 | 34.0 - 46.0 % | REFERENCE | | | | | | LAB | | | | | | [facility] | | | | | | LABORATORY | | + + + + + + | MCV | 101.2 (H) | 80.0 - 100.0 fl | REFERENCE | | | | | | LAB | | | | | | [facility] | | | | | | LABORATORY | | + + + + + + | MCH | 34.1 (H) | 27.0 - 34.0 pg | REFERENCE | | | | | | LAB | | | | | | [facility] | | | | | | LABORATORY | | + + + + + + | MCHC | 33.7 | 32.0 - 35.5 | REFERENCE | | | | | g/dL | LAB | | | | | | [facility] | | | | | | LABORATORY | | + + + + + + | RDW-SD | 49.4 | 37 - 53 fl | REFERENCE | | | | | | LAB | | | | | | [facility] | | | | | | LABORATORY | | + + + + + + | Platelet | 205 | 150 - 400 K/uL | REFERENCE | | | Count | | | LAB | | | | | | [facility] | | | | | | LABORATORY | | + + + + + + | MPV | 9.6 | fl | REFERENCE | | | | | | LAB | | | | | | [facility] | | | | | | LABORATORY | | + + + + + + | Diff Type | AUTOMATED | | REFERENCE | | | | | | LAB | | | | | | [facility] | | | | | | LABORATORY | | + + + + + + | % | 50.15 | % | REFERENCE | | | Neutrophils | | | LAB | | | | | | [facility] | | | | | | LABORATORY | | + + + + + + | % | 36.06 | % | REFERENCE | | | Lymphocytes | | | LAB | | | | | | [facility] | | | | | | LABORATORY | | + + + + + + | Monocyte % | 10.97 | % | REFERENCE | | | | | | LAB | | | | | | [facility] | | | | | | LABORATORY | | + + + + + + | Eosinophils | 1.98 | % | REFERENCE | | | % | | | LAB | | | | | | [facility] | | | | | | LABORATORY | | + + + + + + | Basophils % | 0.84 | % | REFERENCE | | | | | | LAB | | | | | | [facility] | | | | | | LABORATORY | | + + + + + + | Neutrophils | 1.74 (L) | 1.90 - 7.40 | REFERENCE | | | , Absolute | | K/uL | LAB | | | | | | [facility] | | | | | | LABORATORY | | + + + + + + | Absolute | 1.25 | 1.00 - 3.90 | REFERENCE | | | Lymphocytes | | K/uL | LAB | | | | | | [facility] | | | | | | LABORATORY | | + + + + + + | Absolute | 0.38 | 0.00 - 0.80 | REFERENCE | | | Monocytes | | K/uL | LAB | | | | | | [facility] | | | | | | LABORATORY | | + + + + + + | Eosinophils | 0.07 | 0.00 - 0.50 | REFERENCE | | | , Absolute | | K/uL | LAB | | | | | | [facility] | | | | | | LABORATORY | | + + + + + + | Basophils, | 0.03Comment: Testing | 0.00 - 0.10 | REFERENCE | | | Absolute | performed at [facility];[address] | K/uL | LAB | | | | [address] | | [facility] | | | | [address];[place] [address] | | LABORATORY | | + + + + + + + + | Specimen | + + | Blood | + + + + + + + | Performing | Address | City/State/Zipcode | Phone Number | | Organization | | | | + + + + + | REFERENCE LAB | [address] | [place] [address] | [phone] | | [facility] | Blvd[address] | | | | LABORATORY | | | | + + + + + | REFERENCE LAB | [address] | [place] [address] | | | [facility] | Blvd[address] | | | | LABORATORY | | | | + + + + + documented in this encounter Visit Diagnoses + + | Diagnosis | + + | Polyarthralgia - Primary Pain in joint, multiple sites | + + | Primary osteoarthritis involving multiple joints | + + documented in this encounter"
--- OUTSIDE RECORDS SUMMARY | ~2019-04-17 | XMS | Encounter Summary ---
Demographics + + + | Address | [address] | | | [place] [address] | + + + | Home Phone | | + + + | Preferred Language | Unknown | + + + | Marital Status | | + + + | Yazidism Affiliation | Unknown | + + + | Race | Unknown | + + + | Ethnic Group | Unknown | + + + Author + + + | Author | [facility] | | | and [place] | + + + | Organization | [facility] | | | [...] Team Providers + +------+ + | Care Construction Driller Name | Role | Phone | + +------+ + | Bhakti Dietz PA-C | PCP | | + +------+ + Encounter Details +--------+ + + + + | Date | Type | Department | Care Team | Description | +--------+ + + + + | 12/15/ | Orders Only | [facility] | [place], | Other specified | | 2019 | | HEMATOLOGY AND | Juan R Gray MD | diseases of blood | | | | ONCOLOGY [place] | [address] | and blood-forming | | | | [address] | [place] | organs; Other | | | | [place], [place] | [address] | neutropenia (HCC) | | | | [address] | | | | | | [phone] | | | +--------+ + + + [...] [place] | | | | | | [address] | | | | | | | [...]
--- OUTSIDE RECORDS SUMMARY | ~2019-04-17 | XMS | Encounter Summary ---
Demographics + + + | Address | [address] | | | [place] [address] | + + + | Home Phone | | + + + | Preferred Language | Unknown | + + + | Marital Status | | + + + | Advent Affiliation | Unknown | + + + | Race | Unknown | + + + | Ethnic Group | Unknown | + + + Author + + + | Author | [facility] | | | and [place] | + + + | Organization | [facility] | | | [...] Team Providers + +------+ + | Care Scutcher Tender Name | Role | Phone | + [...] | | double | GAMA Sandhu | [address] | | | | | stranded DNA | [address] | [address] | | | | | antibody | St | [place] | | | | | test, | [place], [place] | [address] | | | | | Chronic | [address] | Phone: | | | | | joint pain | Phone: | [phone] | | | | | | [phone] | Fax: | | | | | | | [phone] | +--------+--------+ + + + + Encounter Details +--------+---------+ + + + | Date | Type | Department | Care Team | Description | +--------+---------+ + + + | 02/21/ | Office | [facility] | Roge Chow, | Polyarthralgia | | 2019 | Visit | RHEUMATOLOGY [address] | PA-C [address] | (Primary Dx); High | | | | [address] | [address] | risk medication use; | | | | [place] | [place] [address] | Osteoarthritis, | | | | [address] | [phone] | unspecified | | | | [phone] | | osteoarthritis type, | | | [...] encounter Patient Instructions Patient Instructions Tamara Boles Dope Firer - 02/21/2019 1:20 PM PDTWe hop e that you have experienced exceptional care today and that you found our service to be cour teous and helpful. ? If you have any questions/concerns or need medication refills you can send us a message/r equest using [employer] or by calling our office at [phone]. o If you would like to reach my medical housekeeper, Paula Boles please call [phone] Ext: [phone] ? If you are unable to reach [...] can also look at your results on [employer]. If you are experiencing an emergency, please [...] hepatitis C virus (HCV)/(AIDS), L ymphoma, Sarcoidosis, Uaawg-suabfq-hias disease, Recent use of medications with anticholiner [...] ROS. Past Medical History: Diagnosis Date Alcoholism ([facility]) Arthritis Chemical dependency ([facility]) Depression H/O bronchitis H/O psychiatric care H/O: pneumonia Suicide attempt ([facility]) Current Outpatient Medications: albuterol 90 mcg/puff inhaler, [...] 360 hour(s)). Laboratory results were reviewed in [facility] as well as chart notes and imaging [...] MD | | | | | | [address] | | | | | | [place] | | | | | | [phone] | | | | | | | [...]
--- OUTSIDE RECORDS SUMMARY | ~2019-04-17 | XMS | Encounter Summary ---
Demographics + + + | Address | [address] | | | [place] [address] | + + + | Home Phone | | + + + | Preferred Language | Unknown | + + + | Marital Status | | + + + | Amish Affiliation | Unknown | + + + | Race | Unknown | + + + | Ethnic Group | Unknown | + + + Author + + + | Author | [facility] | | | and [place] | + + + | Organization | [facility] | | | and [place] | + + + | Address | Unknown | + + + | Phone | Unavailable | + + + Support + + +---------+ + | Name | Relationship | Address | Phone | + + +---------+ + | Compa Butcher | ECON | Unknown | | + + +---------+ + Care Team Providers + +------+ + | Care Kick Boxer Name | Role | Phone | + +------+ + | Raudel Ellington DO | PCP | | + +------+ + Reason for Visit + + + | Reason | Comments | + + + | Follow-up | 4 mnth-Macrocytosis | + + + Encounter Details +--------+---------+ + + + | Date | Type | Department | Care Team | Description | +--------+---------+ + + + | 03/22/ | Office | [facility] | [place], | Macrocytosis | | 2019 | Visit | HEMATOLOGY AND | Juan R Gray MD | (Primary Dx); | | | | ONCOLOGY [place] | [address] | Leukopenia, | | | | [address] | [facility] | unspecified type | | | | [place] | [address] | | | | | [address] | | | | | | [phone] | | | +--------+---------+ + + + Social History + +-------+ +--------+------+ | Tobacco Use | Types | Packs/Day | Years | Date | | | | | Used | | + +-------+ +--------+------+ | Current Every Day | | 0.5 | | | | Smoker | | | | | + +-------+ +--------+------+ + +---+---+---+ | Smokeless Tobacco: | | | | | Never Used | | | | + +---+---+---+ + + +---------+ + | Alcohol Use | Drinks/Week | oz/Week | Comments | + + +---------+ + | Not Currently | | | stopped 11/4 | + + +---------+ + + + [...] + + + | Blood Pressure | 128/82 | 03/22/2019 9:40 AM | | | | | PST | | + + + + + | Pulse | 86 | 03/22/2019 9:40 AM | | | | | PST | | + + + + + | Temperature | 36.6 C (97.9 F) | 03/22/2019 9:40 AM | | | | | PST | | + + + + + | Respiratory Rate | 20 | 03/22/2019 9:40 AM | | | | | PST | | + + + + + | Oxygen Saturation | 99% | 03/22/2019 9:40 AM | | | | | PST | | + + + + + | Inhaled Oxygen | - | - | | | Concentration | | | | + + + + + | Weight | 85.6 kg (188 lb 11.2 | 03/22/2019 9:40 AM | | | | oz) | PST | | + + + + + | Height | 167.6 cm (5' 6") | 03/22/2019 9:40 AM | | | | | PST | | + + + + + | Body Mass Index | 30.46 | 03/22/2019 9:40 AM | | | | | PST | | + + + + + documented in this encounter Progress Notes Juan R Harris MD - 03/22/2019 9:15 AM PSTFormatting of this note might be dif ferent from the original. [facility] Hematology Progress Note Patient Name: NUVIA BUTCHER Date of : 1965 Age: 54 y.o. PCP: Raudel Ellington DO History of Present Illness Ms. Nuvia Butcher is a pleasant 54 y.o. female with history of depression, prior suicid e attempt, excessive alcohol use, referred for neutropenia noted on the blood work. Patient had blood work with CBC performed on 11/10/2018 that showed white count of 2900, nor mal hemoglobin of 13.7 g/dL, normal hematocrit of 41, normal platelet count of 266, decrease d absolute neutrophil count of 1300. Of note, patient did have low absolute neutrophil coun t ranging from about 950 to 2000 on 3 different occasions in 2019 based on the review of the blood work from outside facility. Blood work from 11/01/2018 showed serum iron saturation of 22%, and normal serum ferritin of 22%. Blood work from 05/17/2018 showed low normal folic a diann level of 8.8. Reason for Office Visit/Interval History Patient comes today for follow-up of neutropenia. She reports having ongoing chronic ongoi ng problems with alcohol use and reportedly was able to quit about 2-1/2 weeks ago. During the last visit she was able to quit for 4 weeks but subsequently relapsed. I congratulated that she is able to quit at this time. Reportedly has a suicide attempt a few weeks ago and is getting help for that at this time. Denies any further suicidal ideations at this time. Medical History Allergies Allergen Reactions Codeine Itching Demeclocycline Other (See Comments) Hydrocodone Itching Morphine Itching Oxycodone Itching Oxycodone-Acetaminophen Itching Tetracycline Other (See Comments) Past Medical History: Diagnosis Date Alcoholism (HCC) Arthritis Chemical dependency (HCC) Depression H/O bronchitis H/O psychiatric care H/O: pneumonia Suicide attempt (HCC) Past Surgical History: Procedure Laterality Date SECTION COLONOSCOPY 2016 [place] HYSTERECTOMY OTHER SURGICAL HISTORY 1987 ROTATOR CUFF REPAIR 2004 TONSILLECTOMY AND ADENOIDECTOMY Family History Problem Relation Age of Onset Anemia Maternal Grandmother Lung cancer Paternal Grandmother Cancer Paternal Grandmother Social History Socioeconomic History Marital status: Spouse name: Not on file Number of children: Not on file Years of education: Not on file Highest education level: Not on file Occupational History Not on file Social Needs Financial resource strain: Not on file Food insecurity: Worry: Not on file Inability: Not on file Transportation needs: Medical: Not on file Non-medical: Not on file Tobacco Use Smoking status: Current Every Day Smoker Smokeless tobacco: Never Used Substance and Sexual Activity Alcohol use: Not Currently Drug use: Not on file Sexual activity: Not on file Lifestyle Physical activity: Days per week: Not on file Minutes per session: Not on file Stress: Not on file Relationships Social connections: Talks on phone: Not on file Gets together: Not on file Attends zoroastrianism service: Not on file Active member of club or organization: Not on file Attends meetings of clubs or organizations: Not on file Relationship status: Not on file Intimate partner violence: Fear of current or ex partner: Not on file Emotionally abused: Not on file Physically abused: Not on file Forced sexual activity: Not on file Other Topics Concern Not on file Social History Narrative Not on file Patient's medical history above reviewed and updated on 03/22/2019 Medications Current Outpatient Medications Medication Sig Dispense Refill albuterol 90 mcg/puff inhaler INHALE TWO PUFFS BY MOUTH EVERY 4 HOURS NEEDED FOR CAROLINE RTNESS OF BREATH atorvaSTATin (LIPITOR) 20 mg tablet Take 20 mg by mouth nightly. buPROPion (WELLBUTRIN XL) 300 mg 24 hr tablet Take 300 mg by mouth. chlordiazePOXIDE (LIBRIUM) 5 mg capsule Take 25 mg by mouth. docusate sodium (COLACE) 100 mg capsule Take 100 mg by mouth daily. DULoxetine (CYMBALTA) [address] capsule Take 30 mg by mouth. fluticasone (FLONASE) 50 mcg/nasal spray 1 spray by Nasal route Daily. gabapentin (NEURONTIN) 300 mg capsule Take 300 mg by mouth. HYDROcodone-acetaminophen (NORCO) 5-325 mg per tablet Take 1 tablet by mouth every 4 ho urs as needed for Pain. ipratropium (ATROVENT HFA) 17 mcg/puff inhaler Inhale 2 puffs into the lungs 2 (two) ti mes daily as needed. loratadine-pseudoePHEDrine (CLARITIN-D 24-HOUR) 10-240 mg per tablet Take 1 tablet by m outh. (Patient not taking: Reported on 02/21/2019) meloxicam (MOBIC) 15 mg tablet Take 15 mg by mouth daily. pantoprazole (PROTONIX) 40 mg tablet Take 40 mg by mouth. sucralfate (CARAFATE) 1 g/10 mL suspension Take 1 g by mouth 4 times daily. traZODone (DESYREL) 50 mg tablet Take 200 mg by mouth nightly. No current facility-administered medications for this visit. Medications reviewed and updated on 03/22/2019 Review of Systems Review of Systems Constitutional: Positive for fatigue (chronic). Negative for appetite change, diaphoresis, fever and unexpected weight change. HENT: Negative for sore throat and trouble swallowing. Eyes: Negative for photophobia and visual disturbance. Respiratory: Positive for shortness of breath (chronic). Negative for cough and chest tight ness. Cardiovascular: Negative for chest pain, palpitations and leg swelling. Gastrointestinal: Positive for nausea. Negative for abdominal pain and vomiting. Genitourinary: Negative for vaginal bleeding and vaginal discharge. Skin: Negative for rash. Allergic/Immunologic: Negative for immunocompromised state. Neurological: Negative for dizziness, seizures and headaches. Hematological: Negative for adenopathy. Does not bruise/bleed easily. Psychiatric/Behavioral: As mentioned in the interval history. Physical Exam There were no vitals taken for this visit. ECOG Performance Status: 0 Physical Exam Constitutional: General: She is not in acute distress. Appearance: She is well-developed. HENT: Head: Normocephalic and atraumatic. Eyes: General: No scleral icterus. Conjunctiva/sclera: Conjunctivae normal. Cardiovascular: Rate and Rhythm: Normal rate and regular rhythm. Pulmonary: Effort: Pulmonary effort is normal. No respiratory distress. Breath sounds: Normal breath sounds. No wheezing. Abdominal: General: Bowel sounds are normal. Palpations: Abdomen is soft. Musculoskeletal: General: No tenderness or deformity. Lymphadenopathy: Cervical: No cervical adenopathy. Skin: General: Skin is warm. Findings: No rash. Neurological: Mental Status: She is alert and oriented to person, place, and time. Psychiatric: Comments: Normal eye contact, asks appropriate questions Labs and Imaging No visits with results within 1 Month(s) from this visit. Latest known visit with results is: Orders Only on 01/24/2019 Component Date Value Ref Range Status SS-B Autoantibody 01/24/2019 <0.2 0.0 - 0.9 AI Final Testing performed at [address] [address] SS-A Autoantibody 01/24/2019 <0.2 0.0 - 0.9 AI Final Testing performed at [address] [address] Cyclic citrullinated peptide Ab.Ig* 01/24/2019 9 0 - 19 units Final Comment: Negative <20 Weak positive 20 - 39 Moderate positive 40 - 59 Strong positive >59 Testing performed by [email or web address], [address] [facility] [address] ESR 01/24/2019 14 0 - 30 mm/Hr Final Testing performed at [facility];[address] [place] [address];[place] [address] CRP 01/24/2019 <0.3 <0.5 mg/dL Final Testing performed at [facility];[address] [place] [address];[place] [address] Na 01/24/2019 139 135 - 145 mmol/L Final K 01/24/2019 4.1 3.5 - 4.9 mmol/L Final Cl 01/24/2019 103 99 - 109 mmol/L Final CO2 01/24/2019 32 23 - 32 mmol/L Final Anion Gap 01/24/2019 8 5 - 20 mmol/L Final Glucose 01/24/2019 85 65 - 99 mg/dL Final BUN 01/24/2019 9 8 - 25 mg/dL Final Creatinine 01/24/2019 0.8 0.50 - 1.00 mg/dL Final BUN/Creatinine Ratio 01/24/2019 11 Final Calcium 01/24/2019 9.2 8.5 - 10.5 mg/dL Final Protein, Total 01/24/2019 7.3 6.3 - 8.2 g/dL Final Albumin 01/24/2019 3.9 3.6 - 5.0 g/dL Final Globulin 01/24/2019 3.4 1.3 - 4.9 g/dL Final A/G Ratio 01/24/2019 1.1 1.0 - 2.4 Final BILIRUBIN, TOTAL 01/24/2019 0.4 0.1 - 1.5 mg/dL Final ALK PHOS 01/24/2019 65 35 - 115 U/L Final AST 01/24/2019 22 10 - 45 U/L Final ALT 01/24/2019 30 10 - 65 U/L Final Estimated GFR 01/24/2019 >60 >60 mL/min/1.73m2 Final Comment: GFR <60: CHRONIC KIDNEY DISEASE, IF FOUND OVER A 3 MONTH PERIOD. GFR <15: KIDNEY FAILURE. FOR AMERICANS, MULTIPLY THE CALCULATED GFR BY 1.210. This eGFR is calculated using the MDRD IDMS traceable equation. Testing performed at [facility];[address] [place] [address];[place] [address] WBC 01/24/2019 3.46* 3.80 - 11.00 K/uL Final RBC 01/24/2019 3.92 3.70 - 5.10 M/uL Final Hemoglobin 01/24/2019 13.4 11.3 - 15.5 g/dL Final Hematocrit 01/24/2019 39.6 34.0 - 46.0 % Final MCV 01/24/2019 101.2* 80.0 - 100.0 fl Final MCH 01/24/2019 34.1* 27.0 - 34.0 pg Final MCHC 01/24/2019 33.7 32.0 - 35.5 g/dL Final RDW-SD 01/24/2019 49.4 37 - 53 fl Final Platelet Count 01/24/2019 205 150 - 400 K/uL Final MPV 01/24/2019 9.6 fl Final Diff Type 01/24/2019 AUTOMATED Final % Neutrophils 01/24/2019 50.15 % Final % Lymphocytes 01/24/2019 36.06 % Final Monocyte % 01/24/2019 10.97 % Final Eosinophils % 01/24/2019 1.98 % Final Basophils % 01/24/2019 0.84 % Final Neutrophils, Absolute 01/24/2019 1.74* 1.90 - 7.40 K/uL Final Absolute Lymphocytes 01/24/2019 1.25 1.00 - 3.90 K/uL Final Absolute Monocytes 01/24/2019 0.38 0.00 - 0.80 K/uL Final Eosinophils, Absolute 01/24/2019 0.07 0.00 - 0.50 K/uL Final Basophils, Absolute 01/24/2019 0.03 0.00 - 0.10 K/uL Final Testing performed at [facility];[address] [facility];[place] [address] Assessment Ms. Nuvia Butcher is a pleasant 54 y.o. female with history of depression, prior suicid e attempt, excessive alcohol use, quit 4 weeks ago, referred for neutropenia noted on the ood work. Plan 1. I reviewed results of most recent blood work performed on 03/14/2019 showing slightly d ecreased white count of 4400,, with normal hemoglobin hematocrit of 12.4, and 36.9 with norm al platelet count of 222 and with relatively normal differential with absolute neutrophil co unt of about 2200 (50% of 4400). Her low neutrophil count noted on prior records could be s econdary to alcohol use rather than any bone marrow problems. Ultrasound of the liver perfo rmed on 11/17/2018 showed fatty replacement of the liver and could be secondary to alcohol us e. Counseled regarding discontinuation of alcohol and excessive alcohol use including end-s tage cirrhosis. Patient is aware and has been trying to quit over the past few weeks as men tioned. She is congratulated for that. Check B12, folic acid levels and replace as indicat ed. Follow-up in 4 months with repeat blood work. Call sooner if needed. All the patient's questions were answered to her satisfaction. Juan R Harris MD [facility] 03/22/2019 Portions of this chart may have been created with voice recognition software. Occasional wr cinthia-word or "sound-alike" substitutions may have occurred, even after review, due to the inh erent limitations of voice recognition software. Please read the chart carefully and recogni ze, using context, where these substitutions have occurred. Personal communication is reques park for any clarifications. 19 3:50 PM PSTdocumented in this encounter Plan of Treatment +--------+---------+ [...] [place] | | | | | | [address] | | | | | | | | +--------+---------+ + + + + +------+--------+ + + | Name | Type | Priori | Associated Diagnoses | Order Schedule | | | | ty | | | + +------+--------+ + + | Vitamin B-12 and | Lab | Routin | Macrocytosis | Expected: 07/20/2019 | | Folate | | e | Leukopenia, | (Approximate), | | | | | unspecified type | Expires: 03/22/2020 | + +------+--------+ + + | CBC with | Lab | Routin | Macrocytosis | Expected: 07/21/2019 | | Differential | | e | Leukopenia, | (Approximate), | | | | | unspecified type | Expires: 03/22/2020 | + +------+--------+ + + | Vitamin B-12 and | Lab | Routin | Macrocytosis | Expected: 07/21/2019 | | Folate | | e | Leukopenia, | (Approximate), | | | | | unspecified type | Expires: 03/22/2020 | + +------+--------+ + + | Vitamin B-12 and | Lab | Routin | Macrocytosis | Expected: 03/22/2019 | | Folate | | e | Leukopenia, | (Approximate), | | | | | unspecified type | Expires: 03/22/2020 | + +------+--------+ + + documented as of this encounter Visit Diagnoses + + | Diagnosis | + + | Macrocytosis - Primary Other specified diseases of blood and blood-forming organs | + + | Leukopenia, unspecified type | + + documented in this encounter
--- OUTSIDE RECORDS SUMMARY | ~2019-04-17 | XMS | Encounter Summary ---
Demographics + + + | Address | [address] | | | [place] [address] | + + + | Home Phone | | + + + | Preferred Language | Unknown | + + + | Marital Status | | + + + | Rastafarian Affiliation | Unknown | + + + | Race | Unknown | + + + | Ethnic Group | Unknown | + + + Author + + + | Author | [facility] | | | and [place] | + + + | Organization | [facility] | | | and [...] Team Providers + +------+ + | Care Superintendent Of Generation Name | Role | Phone | + +------+ + | Raudel Ellington DO | PCP | | + +------+ + Encounter Details +--------+ + + + + | Date | Type | Department | Care Team | Description | +--------+ + + + + | 01/24/ | Orders Only | [facility] | [place], | Polyarthralgia | | 2019 | | [address] | [address] | | | | | [place] | | | | | | [address] | | | | | | [phone] | | | +--------+ + + + [...] MD | | | | | | [address] | | | | | | [place] | | | | | | [id number] | | | | | | | | +--------+---------+ + + + documented as of this encounter Procedures + +--------+ + + + | Procedure Name | Priori | Date/Time | Associated Diagnosis | Comments | | | ty | | | | + +--------+ + + + | CCP ANTIBODIES, IGG | Routin | 01/24/2019 | Polyarthralgia | Results for this | | IGA | e | 8:13 AM | | procedure are in the | | | | PDT | | results section. | + +--------+ + + + | SEDIMENTATION RATE | Routin | 01/24/2019 | Polyarthralgia | Results for this | | | e | 8:13 AM | | procedure are in the | | | | PDT | | results section. | + +--------+ + + + | SS-B LA AB, IGG, | Routin | 01/24/2019 | Polyarthralgia | Results for this | | SERUM | e | 8:13 AM | | procedure are in the | | | | PDT | | results section. | + +--------+ + + + | SS-A RO AB, IGG, | Routin | 01/24/2019 | Polyarthralgia | Results for this | | SERUM | e | 8:13 AM | | procedure are in the | | | | PDT | | results section. | + +--------+ + + + | CBC WITH | Routin | 01/24/2019 | Polyarthralgia | Results for this | | DIFFERENTIAL | e | 8:13 AM | | procedure are in the | | | | PDT | | results section. | + +--------+ + + + | C-REACTIVE PROTEIN | Routin | 01/24/2019 | Polyarthralgia | Results for this | | | e | 8:13 AM | | procedure are in the | | | | PDT | | results section. | + +--------+ + + + | COMPREHENSIVE | Routin | 01/24/2019 | Polyarthralgia | Results for this | | METABOLIC PANEL | e | 8:13 AM | | procedure are in the | | | | PDT | | results section. | + +--------+ + + + documented in this encounter Results CBC with Differential (01/24/2019 8:13 AM PDT) [...] | | | Absolute | performed at [facility];[address] | LAB | | | | [facility] | | [facility] | | | | [address];[place] [address] | | LABORATORY | | + + + + + + + + | Specimen | + + | Blood | + + + + + + + | Performing | Address | City/State/Zipcode | Phone Number | | Organization | | | | + + + + + | REFERENCE LAB | [address] [place] [address] | [place] [address] | [phone] | | [facility] | Bl[address] | | | | LABORATORY | | | | + + + + + | REFERENCE LAB | [address] [place] [address] | [place] [address] | | | [facility] | Bl[address] | [...] | | | | | performed at [facility];[address] | | | | | | [facility] | | | | | | [facility];[place] [address] | | | | | | | | | | + + + + + + + + | Specimen | + + | Blood | + + + + + + + | Performing | Address | City/State/Zipcode | Phone Number | | Organization | | | | + + + + + | REFERENCE LAB | [address] [place] [address] | [place] [address] | [phone] | | [facility] | Blvd[address] | | | | LABORATORY | | | | + + + + + | REFERENCE LAB | [address] [place] [address] | [place] [address] | | | [facility] | Bl[address] | [...] REFERENCE | | | | performed at [facility];[address] | | LAB | | | | [place] | | [facility] | | | | [address];[place] [address] | | LABORATORY | | + + + + + + + + | Specimen | + + | Blood | + + + + + + + | Performing | Address | City/State/Zipcode | Phone Number | | Organization | | | | + + + + + | REFERENCE LAB | [address] [facility] | [place] [address] | [phone] | | [facility] | Bl[address] | | | | LABORATORY | | | | + + + + + | REFERENCE LAB | [address] [facility] | [place] [address] | | | [facility] | [address] | [...] REFERENCE | | | | performed at [facility];[address] | | LAB | | | | [place] | | [facility] | | | | [address];[place] [address] | | LABORATORY | | + + + + + + + + | Specimen | + + | Blood | + + + + + + + | Performing | Address | City/State/Zipcode | Phone Number | | Organization | | | | + + + + + | REFERENCE LAB | [address] [place] [address] | [place] [address] | [phone] | | [facility] | Blvd[address] | | | | LABORATORY | | | | + + + + + | REFERENCE LAB | [address] [place] [address] | [place] [address] | | | [facility] | [address] | [...] | | | | | | [facility], [address] [place] [address] | | | | | | [place] | | | | | | [address] | | | | + + + + + + + + | Specimen | + + | Blood | + + + + + + + | Performing | Address | City/State/Zipcode | Phone Number | | Organization | | | | + + + + + | REFERENCE LAB | [address] [place] [address] | [place] [address] | [phone] | | [facility] | Blvd[address] | | | | LABORATORY | | | | + + + + + | REFERENCE LAB | [address] [place] [address] | [place] [address] | | | [facility] | Bl[address] | [...] | | | Autoantibod | performed at [facility], [address] | | LAB | | | y | [facility] | | [facility] | | | | [place] [address] | | LABORATORY | | + + + + + + + + | Specimen | + + | Blood | + + + + + + + | Performing | Address | City/State/Zipcode | Phone Number | | Organization | | | | + + + + + | REFERENCE LAB | [address] [place] [address] | [place] [address] | [phone] | | [facility] | Blvd[address] | | | | LABORATORY | | | | + + + + + | REFERENCE LAB | [address] [place] [address] | [place] [address] | | | [facility] | Blvd. | | | | LABORATORY | | | | + + + + + SS-B LA Ab, IgG, Serum (01/24/2019 8:13 AM PDT) + + + + + + | Component | Value | Ref Range | Performed | Pathologist | | | | | At | Signature | + + + + + + | SS-B | <0.2Comment: Testing | 0.0 - 0.9 AI | REFERENCE | | | Autoantibod | performed at [facility], [address] | | LAB | | | y | [facility] | | [facility] | | | | [place] [address] | | LABORATORY | | + + + + + + + + | Specimen | + + | Blood | + + + + + + + | Performing | Address | City/State/Zipcode | Phone Number | | Organization | | | | + + + + + | REFERENCE LAB | [address] [facility] | [place] [address] | [phone] | | [facility] | Bl[address] | | | | LABORATORY | | | | + + + + + | REFERENCE LAB | [address] | [place] [address] | | | [facility] | Blvd[address] | | | | LABORATORY | | | | + + + + + documented in this encounter Visit Diagnoses + + | Diagnosis | + + | Polyarthralgia Pain in joint, multiple sites | + + documented in this encounter"
--- OUTSIDE RECORDS SUMMARY | ~2019-04-17 | XMS | Clinical Summary ---
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 [facility];[address] | | | | | | [facility] | | | | | | Blvd;[place] [address] | | | | | | | | | | + + + + + + + + | Specimen | + + | Blood | + + + + + + + | Performing | Address | City/State/Zipcode | Phone Number | | Organization | | | | + + + + + | REFERENCE LAB | [address] [facility] | [place] [address] | [phone] | | [facility] | Blvd[address] | | | | LABORATORY | | | | + + + + + | REFERENCE LAB | [address] [facility] | [place] [address] | | | [facility] | [address]vd[address] | | | | LABORATORY | | | | + + + + + from Last 3 Months Insurance + +--------+ +--------+ +---------+--------+ | Payer | Benefi | Subscriber | Effect | Phone | Address | Type | | | t Plan | ID | zena | | | | | | / | | Dates | | | | | | Group | | | | | | + +--------+ +--------+ +---------+--------+ | [employer] | [employer] | [id number] | | [phone] | | Medica | | MEDICAID HMO | HEALTH | | 019-Pr | 1 | | id | | | MDCD | | esent | | | | | | [place] | | | | | | + +--------+ +--------+ +---------+--------+ + +--------+ +--------+ + + | Guarantor Name | Accoun | Relation to | Date | Phone | Billing Address | | | t Type | Patient | of | | | | | | | | | | + +--------+ +--------+ + + | Nuvia Zendejas | Person | Self [birth year] | | | al/Fam | | 1965 | [phone] | [place] | | | shani | | | 2 (Home) | [address] | + +--------+ +--------+ + + Advance Directives + + + + + | Type | Date Recorded | Patient | Explanation | | | | Fish Cleaner | | + + + + + | Power of | | | | | Computer Tester | | | | + + + + + | Advance | | | | | Directive | | | | + + + + +
--- OUTSIDE RECORDS SUMMARY | ~2019-04-17 | XMS | Encounter Summary ---
Demographics + + + | Address | [address] | | | [place] [address] | + + + | Home Phone | | + + + | Preferred Language | Unknown | + + + | Marital Status | Single | + + + | Spiritism Affiliation | NON | + + + | Race | White | + + + | Ethnic Group | Not or | + + + Author + + + | Author | [facility] | + + + | Organization | [facility] | + + + | Address | Unknown | + + + | Phone | Unavailable | + + + Support + + +---------+ + | Name | Relationship | Address | Phone | + + +---------+ + | Compa Zendejas | ECON | Unknown | | + + +---------+ + Care Team Providers + +------+ + | Care Electronic Prepress Operator Name | Role | Phone | [...] | | | back pain, | [address] [facility] | [address] | | | | | unspecified | [facility] | [facility] | | | | | back pain | Rd | [address] | | | | | laterality, | [place], [place] | [place] | | | | | unspecified | [address] | [address] | | | | | whether | Phone: | Phone: | | | | | sciatica | [phone] | [phone] | | | | | present | Fax: | Fax: | | | | | Procedures | [phone] | [phone] | | | | | PHYSICAL | [...] Pain | Diagnoses | Jean Carlos, | Rapid Transit Operator Ch[facility] | | | | Management | Chronic low | MD Narciso | [address] | | | | | back pain, | [address] | [address] | | | | | unspecified | [facility] | Mailcode: | | | | | back pain | Rd | [facility] | | | | | laterality, | [place], [place] | for Health | | | | | unspecified | [address] | and Healing, | | | | | whether | Phone: | Building | | | | | sciatica | [phone] | [address] | | | | | present | Fax: | [place], [place] | | | | | Procedures | [phone] | [address] | | | | | CONSULT TO | | Phone: | | | | | PAIN | | [phone] | | | | | MANAGEMENT | | Fax: | | | | | | | [phone] | + +---------+ + + + + [...] | stenosis, | Zahira Valenzuela, | [address] [facility] | | | | | lumbar | [place] [address] | [address] | | | | | region | [address] | Rd [place], | | | | | without | [place], | [place] | | | | | neurogenic | [place] [address] | [address] | | | | | claudication | Phone: | Phone: | | | | | Procedures | [phone] | [phone] | | | | | [place] | Fax: | Fax: | | | | | | [phone] | [phone] | + +--------+ + + + + Encounter Details +--------+---------+ + + + | Date | Type | Department | Care Team | Description | +--------+---------+ + + + | 04/11/ | Office | Orthopaedics at | Narciso Evangelista MD | Chronic low back | | 2019 | Visit | [facility] [address] | [address] [place] | pain, unspecified | | | | Ave Mailcode: [address] | [place], | back pain | | | | [place] [facility] | [place] [address] | laterality, | | | | and Healing, | [phone] | unspecified whether | | | | Building | | sciatica present | | | | Floor [place], [place] | | (Primary Dx) | | | | [address] | | | | | | [phone] | | | +--------+---------+ + + + [...] + documented in this encounter Progress Notes Narciso Evangelista MD - 04/11/2019 10:45 AM PST Chief complaint: Chief Complaint Patient presents with New Patient Visit Low back pain HPI Nuvia Zendejas is a 54 y.o. female who presents today with history of chronic low back glenna n of several years duration. She notes the symptoms have progressed over the past 10 years. 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 She notes multiple injur ies over the years with respect to the low back pain. She has had treatment for knee pain as well. She describes the pain in the low back region with intermittent symptoms into the le gs. She also notes periodic neck pain. She notes the symptoms are a burning pain. The sym ptoms are somewhat unpredictable but can be worse with prolonged sitting. 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 With review of systems s he notes a sense of weakness in the legs and does note fall (unrelated to weakness). She do es have some bilateral groin pain and bilateral lower extremity intermittent paresthesias an d this tends to be more in the thighs. She does note some swelling in the feet. She notes no fevers, chills, night sweats, unexplained weight loss or appetite changes or bowel or marce dder dysfunction. She has tried acupuncture, chiropractic treatment without spine injections . She has taken meloxicam and is taking gabapentin and cymbalta. The patient has had prior imaging and the 12/2018 lumbar spine MRI images and/or reports hav e been reviewed and are consistent with multilevel mild to moderate degenerative changes wit hout severe spinal stenosis or nerve root impingement. Current Outpatient Medications: albuterol 90 mcg/actuation inhalation HFA aerosol inhaler, , Disp: , Rfl: atorvastatin 20 mg oral tablet, , Disp: , Rfl: ATROVENT HFA 17 mcg/actuation inhalation HFA aerosol inhaler, , Disp: , Rfl: DULoxetine 60 mg oral capsule,delayed release(DR/EC), TAKE ONE CAPSULE BY MOUTH ONE TIME DA HENRY, Disp: , Rfl: gabapentin 300 mg oral capsule, , Disp: , Rfl: loratadine 10 mg oral tablet, Take 1 tab daily., Disp: , Rfl: omeprazole 20 mg oral capsule,delayed release(DR/EC), , Disp: , Rfl: traZODone 100 mg oral tablet, TAKE TWO TABLETS BY MOUTH NIGHTLY AT BEDTIME, Disp: , Rfl: Allergies Allergen Reactions Hydrocodone-Acetaminophen Pruritus and Rash Oxycodone-Acetaminophen Pruritus and Rash Tetracycline Unknown Other reaction(s): Other (See Comments), Other (See Comments) Unknown reaction Unknown reaction Codeine Pruritus Demeclocycline Unknown Other reaction(s): Other (See Comments), Patient Does Not Remember Hydrocodone Pruritus Morphine Pruritus Oxycodone Pruritus Prednisone Unknown and Rash Other reaction(s): Other (See Comments) Rash, Other reaction(s): Other (See Comments) Other reaction(s): Other (See Comments) Other reaction(s): Other (See Comments) No past medical history on file. No past surgical history on file. Social History Socioeconomic History Marital status: Single Spouse name: Not on file Number of [...] Use Smoking status: Current Every Day Smoker Types: Cigarettes Smokeless tobacco: Never Used Substance and Sexual Activity Alcohol use: Yes Frequency: Monthly or less Drug use: Not Currently Sexual activity: Not on file Lifestyle Physical activity: Days per week: Not on file Minutes per session: Not on file Stress: Not on file Relationships Social connections: Talks on phone: Not on file Gets together: Not on file Attends latter day service: Not on file Active member of club or organization: Not on file Attends meetings of clubs or organizations: Not on file Relationship status: Not on file Other Topics Concern Not on file Social History Narrative Not on file Visit Vitals Item Reading BP 128/80 Pulse 96 Temp (Src) 36.8 C (98.3 F) (Oral) RR 15 Ht 1.676 m (5' 6") Wt 83.9 kg (185 lb) BMI 29.86 kg/(m^2) ROS Reviewed on patient information sheet filled out by patient. No other pertinent positives noted. Physical Exam Constitutional: She is well-developed, well-nourished, and in no distress. Neck: Normal range of motion. No spinous process tenderness and no muscular tenderness pres ent. Cardiovascular: Intact distal pulses. Lymphadenopathy: She has no cervical adenopathy. Neurological: Gait normal. Reflex Scores: Patellar reflexes are 1+ on the right side and 1+ on the left side. Achilles reflexes are 1+ on the right side and 1+ on the left side. Skin: Skin is warm and dry. No cyanosis or erythema. Nails show no clubbing. Psychiatric: Mood and affect normal. Neurologic Exam Motor Exam Muscle bulk: normal Overall muscle tone: normal Strength Right iliopsoas: 5/5 Left iliopsoas: 5/5 Right quadriceps: 5/5 Left quadriceps: 5/5 Right hamstrin/5 Left hamstrin/5 Right anterior tibial: 5/5 Left anterior tibial: 5/5 Right peroneal: 5/5 Left peroneal: 5/5 Right gastroc: 5/5 Left gastroc: 5/5 Right extensor hallicus longus: 5/5 Left extensor hallicus longus: 5/5 Sensory Exam Right arm light touch: normal Left arm light touch: normal Right leg light touch: normal Left leg light touch: normal Gait, Coordination, and Reflexes Gait Gait: normal Reflexes Right patellar: 1+ Left patellar: 1+ Right achilles: 1+ Left achilles: 1+ Right plantar: normal Left plantar: normal Right ankle clonus: absent Left ankle clonus: absentIndependent with transfering Ortho Exam: Right Hip Right hip exam is normal. Tenderness The patient is experiencing tenderness in the posterior and lateral. Range of Motion The patient has normal right hip ROM. Tests FILIBERTO: negative Left Hip Left hip exam is normal. Tenderness The patient is experiencing tenderness in the lateral. Range of Motion The patient has normal left hip ROM. Tests FILIBERTO: negative Back Tenderness The patient is experiencing tenderness in the lumbar and sacroiliac. Range of Motion Extension: abnormal Flexion: abnormal Lateral bend right: abnormal Lateral bend left: abnormal Muscle Strength Right Quadriceps: 5/5 Left Quadriceps: 5/5 Right Hamstrings: 5/5 Left Hamstrin Tests Straight leg raise right: negative Straight leg raise left: negative Other Toe walk: normal Heel walk: normal Gait: normal ASSESSMENT: This patient has a complex and chronic history and abnormal exam with respect to longstandi ng low back pain and hip girdle pain refractory to time and conservative treatment as descri bed above with probable mechanical low back pain and differential diagnosis including hip gi rdle muscles sprain/strain. The patient has had prior imaging with MRI as described above. The history and exam is not suggestive of radiculopathy, neurogenic claudication or hip os teoarthritis. Encounter Diagnoses Name Primary? Chronic low back pain, unspecified back pain laterality, unspecified whether sciatica p resent Yes RECOMMENDATIONS: We have discussed potential management options. We did review independent exercise program in detail with respect to the current symptoms. Orders Placed This Encounter CONSULT TO PAIN MANAGEMENT PHYSICAL THERAPY REFERRAL [facility] [phone] (fax) Order Specific Question: Provider order? (ex:"Eval and Treat") Answer: Eval and treat for low back pain Consider further imaging and/or consultation if no improvement. Call or return to clinic if these symptoms worsen or fail to improve as anticipated. Narciso Evangelista M.D. Customer Consulting Manager Physical Medicine and Rehabilitation documented in this enco unter Plan of Treatment Not on filedocumented as of this encounter Visit Diagnoses + + | Diagnosis | + + | Chronic low back pain, unspecified back pain laterality, unspecified whether sciatica | | present - Primary | + + documented in this encounter
--- OUTSIDE RECORDS SUMMARY | ~2019-04-17 | XMS | Encounter Summary ---
Demographics + + + | Address | [address] | | | [place] [address] | + + + | Home Phone | | + + + | Preferred Language | Unknown | + + + | Marital Status | | + + + | Presybeterian Affiliation | Unknown | + + + [...] Team Providers + +------+ + | Care Digital Assistant Name | Role | Phone | [...] 2019 | | [address] | [place] | | | | | [place] | | | | | | [address] | | | | | | [phone] | | | +--------+ + + + [...] [place] | | | | | | [id number] | | | | | | | [...] | | | Absolute | performed at [facility];[address] | [address] | LAB | | | | [facility] | | [facility] | | | | [address];[place] [address] | | LABORATORY | | + + + + + + + + | Specimen | + + | Blood | + + + + + + + | Performing | Address | City/State/Zipcode | Phone Number | | Organization | | | | + + + + + | REFERENCE LAB | [address] [place] [address] | [place] [address] | [phone] | | [facility] | Blvd[address] | | | | LABORATORY | | | | + + + + + | REFERENCE LAB | [address] [place] [address] | [place] [address] | | | [facility] | Blvd[address] | [...] | | | | | performed at [facility];[address] | | | | | [facility] | | | | | | [facility];[place] [address] | | | | | | | | | | + + + + + + + + | Specimen | + + | Blood | + + + + + + + | Performing | Address | City/State/Zipcode | Phone Number | | Organization | | | | + + + + + | REFERENCE LAB | [address] [place] [address] | [place] [address] | [phone] | | [facility] | Blvd. | | | | LABORATORY | | | | + + + + + | REFERENCE LAB | [address] [place] [address] | [place] [address] | | | [facility] | Blvd[address] | [...] REFERENCE | | | | performed at [facility];[address] | | LAB | | | | [place] | | [facility] | | | | Blvd;[place] [address] | | LABORATORY | | + + + + + + + + | Specimen | + + | Blood | + + + + + + + | Performing | Address | City/State/Zipcode | Phone Number | | Organization | | | | + + + + + | REFERENCE LAB | [address] | [place] [address] | [phone] | | [facility] | Blvd[address] | | | | LABORATORY | | | | + + + + + | REFERENCE LAB | [address] | [place] [address] | | | [facility] | Blvd[address] | [...] [facility] | | | | Bl[address];[place] [address] | | LABORATORY | | + + + + + + + + | Specimen | + + | Blood | + + + + + + + | Performing | Address | City/State/Zipcode | Phone Number | | Organization | | | | + + + + + | REFERENCE LAB | [address] [place] [address] | [place] [address] | [phone] | | [facility] | Blvd[address] | | | | LABORATORY | | | | + + + + + | REFERENCE LAB | [address] [place] [address] | [place] [address] | | | [facility] | Blvd[address] | [...] | | | | | | by [facility], [address] [place] [address] | | | | | | [place] | | | | | | [address] | | | | + + + + + + + + | Specimen | + + | Blood | + + + + + + + | Performing | Address | City/State/Zipcode | Phone Number | | Organization | | | | + + + + + | REFERENCE LAB | [address] [place] [address] | [place] [address] | [phone] | | [facility] | Blvd[address] | | | | LABORATORY | | | | + + + + + | REFERENCE LAB | [address] [place] [address] | [place] [address] | | | [facility] | Blvd. | [...] | | | Autoantibod | performed at [facility], [address] | | LAB | | | y | [facility] | | [facility] | | | | [place] [address] | | LABORATORY | | + + + + + + + + | Specimen | + + | Blood | + + + + + + + | Performing | Address | City/State/Zipcode | Phone Number | | Organization | | | | + + + + + | REFERENCE LAB | [address] [place] [address] | [place] [address] | [phone] | | [facility] | Blvd[address] | | | | LABORATORY | | | | + + + + + | REFERENCE LAB | [address] [place] [address] | [place] [address] | | | [facility] | Blvd. | [...] | | | Autoantibod | performed at [facility], [address] | | LAB | | | y | [facility] | | [facility] | | | | [place] [address] | | LABORATORY | | + + + + + + + + | Specimen | + + | Blood | + + + + + + + | Performing | Address | City/State/Zipcode | Phone Number | | Organization | | | | + + + + + | REFERENCE LAB | [address] | [place] [address] | [phone] | | [facility] | Blvd[address] | | | | LABORATORY | | | | + + + + + | REFERENCE LAB | [address] | [place] [address] | | | [facility] | Blvd[address] | | | | LABORATORY | | | | + + + + + documented in this encounter Visit Diagnoses + + | Diagnosis | + + | Polyarthralgia Pain in joint, multiple sites | + + documented in this encounter"
--- OUTSIDE RECORDS SUMMARY | ~2019-04-17 | XMS | Encounter Summary ---
Demographics + + + | Address | [address] | | | [place] [address] | + + + | Home Phone | | + + + | Preferred Language | Unknown | + + + | Marital Status | | + + + | Nondenominational Affiliation | Unknown | + + + | Race | Unknown | + + + | Ethnic Group | Unknown | + + + Author + + + | Author | [facility] | | | and [place] | + + + | Organization | [facility] | | | [...] Team Providers + +------+ + | Care Service Crew Supervisor Name | Role | Phone | [...] | | | | [place] | [phone] | | | | | [address] | | | | | | [phone] | | | +--------+ + + + [...] [place] | | | | | | [address] | | | | | | | | +--------+---------+ + + + documented as of this encounter Visit Diagnoses Not on filedocumented in this encounter"
--- OUTSIDE RECORDS SUMMARY | ~2019-04-17 | XMS | Encounter Summary ---
Demographics + + + | Address | [address] | | | [place] [address] | + + + | Home Phone | | + + + | Preferred Language | Unknown | + + + | Marital Status | | + + + | Cheondoism Affiliation | Unknown | + + + | Race | Unknown | + + + | Ethnic Group | Unknown | + + + Author + + + | Author | [facility] | | | and [place] | + + + | Organization | [facility] | | [...] Team Providers + +------+ + | Care Filament Cutter Name | Role | Phone | + [...] | | test, | [place] | [address] | | | | | Chronic | [address] | Phone: | | | | | joint pain | Phone: | [phone] | | | | | | [phone] | Fax: | | | | | | | [phone] | +--------+--------+ + + + + Encounter Details +--------+---------+ + + + | Date | Type | Department | Care Team | Description | +--------+---------+ + + + | 01/24/ | Office | [facility] | Tamara Way MD | Polyarthralgia | | 2019 | Visit | RHEUMATOLOGY [address] | (Primary Dx); | | | [address] | [place], [place] | Primary | | | | [place], [place] | [address] | osteoarthritis | | | | [address] | | involving multiple | | | | [phone] | | joints | +--------+---------+ + + [...] encounter Patient Instructions Patient Instructions Tiffany Irene Lidar Analyst - 01/24/2019 7:50 AM PDTWe hope that you have experienced exceptional care today and that you found our service to be court eous and helpful. If you have any questions or need medication refills you can send us a message/request u LIANAI or call our office at [phone]. To reach my [employer] type extension [phone]. If you are unable to reach a nurse during clinic hours, please leave a detailed message. We check our messages often and return calls in a timely manner during clinic hours. Orders for labs or imaging: Please remember that will only call you if something of concern needs to be addressed, otherwise all result will be discussed at your next [facility] e visit. You can also look at your results on Emida. If you are experiencing an emergency, please call 911 documented in this encounter Progress Notes Tamara Way MD - 01/24/2019 7:50 AM PDTFormatting of this note might be different from e original. Subjective: Reason for referral: positive dsDNA History of presenting Illness: Nuvia Zendejas is a 53 y.o. female polysubstance abuse, Chronic pain, reactive airway [facility] who came to rheumatology clinic for new [...] hepatitis C virus (HCV)/(AIDS), L ymphoma, Sarcoidosis, Cxtdy-ihkhan-ewfi disease, Recent use of medications with anticholiner [...] pneumonia Suicide attempt ([facility]) Past Surgical History: Procedure Laterality Date SECTION [...] Lab Review: The labs were reviewed in [facility] Assessment and Plan: Nuvia was [...] symptoms This progress note was dictated using [employer] voice recognition software. Document was revie wed at time of dictation but [id number] errors may be present. Please call with [...] [place] | | | | | | [address] | | | | | | | [...] | | | Autoantibod | performed at [facility], [address] | | LAB | | | y | [facility] | | [facility] | | | | [place] [address] | | LABORATORY | | + + + + + + + + | Specimen | + + | Blood | + + + + + + + | Performing | Address | City/State/Zipcode | Phone Number | | Organization | | | | + + + + + | REFERENCE LAB | [address] [place] [address] | [place] [address] | [phone] | | [facility] | Blvd[address] | | | | LABORATORY | | | | + + + + + | REFERENCE LAB | [address] [place] [address] | [place] [address] | | | [facility] | Bl[address] | [...] | | | Autoantibod | performed at [facility], [address] | | LAB | | | y | [facility] | | [facility] | | | | [place] [address] | | LABORATORY | | + + + + + + + + | Specimen | + + | Blood | + + + + + + + | Performing | Address | City/State/Zipcode | Phone Number | | Organization | | | | + + + + + | REFERENCE LAB | [address] | [place] [address] | [phone] | | [facility] | Blvd[address] | | | | LABORATORY | | | | + + + + + | REFERENCE LAB | [address] | [place] [address] | | | [facility] | Bl[address]. | [...] | | | | | | by [facility], [address] [place] [address] | | | | | | [facility] | | | | | | [address] | | | | + + + + + + + + | Specimen | + + | Blood | + + + + + + + | Performing | Address | City/State/Zipcode | Phone Number | | Organization | | | | + + + + + | REFERENCE LAB | [address] | [place] [address] | [phone] | | [facility] | Blvd. | | | | LABORATORY | | | | + + + + + | REFERENCE LAB | [address] | [place] [address] | | | [facility] | Blvd. | [...] REFERENCE | | | | performed at [facility];[address] | | LAB | | | | [place] | | [facility] | | | | Bl[address];[place] [address] | | LABORATORY | | + + + + + + + + | Specimen | + + | Blood | + + + + + + + | Performing | Address | City/State/Zipcode | Phone Number | | Organization | | | | + + + + + | REFERENCE LAB | [address] [place] [address] | [place] [address] | [phone] | | [facility] | Blvd. | | | | LABORATORY | | | | + + + + + | REFERENCE LAB | [address] [place] [address] | [place] [address] | | | [facility] | Blvd. | [...] REFERENCE | | | | performed at [facility];[address] | | LAB | | | | [place] | | [facility] | | | | Blvd;[place] [address] | | LABORATORY | | + + + + + + + + | Specimen | + + | Blood | + + + + + + + | Performing | Address | City/State/Zipcode | Phone Number | | Organization | | | | + + + + + | REFERENCE LAB | [address] [place] [address] | [place] [address] | [phone] | | [facility] | Blvd. | | | | LABORATORY | | | | + + + + + | REFERENCE LAB | [address] [place] [address] | [place] [address] | | | [facility] | Blvd. | [...] | | | | | performed at [facility];[address] | | | | | | [facility] | | | | | | Blvd;[place] [address] | | | | | | | | | | + + + + + + + + | Specimen | + + | Blood | + + + + + + + | Performing | Address | City/State/Zipcode | Phone Number | | Organization | | | | + + + + + | REFERENCE LAB | [address] | [place] [address] | [phone] | | [facility] | Blvd. | | | | LABORATORY | | | | + + + + + | REFERENCE LAB | [address] | [place] [address] | | | [facility] | Blvd. | [...] | | | Absolute | performed at [facility];[address] | [address] | LAB | | | | [place] | | [facility] | | | | Blvd;[place] [address] | | LABORATORY | | + + + + + + + + | Specimen | + + | Blood | + + + + + + + | Performing | Address | City/State/Zipcode | Phone Number | | Organization | | | | + + + + + | REFERENCE LAB | [address] | [place] [address] | [phone] | | [facility] | Blvd. | | | | LABORATORY | | | | + + + + + | REFERENCE LAB | [address] | [place] [address] | | | [facility] | Blvd. | [...]
--- OUTSIDE RECORDS SUMMARY | ~2019-04-17 | XMS | Clinical Summary ---
Demographics + + + | Address | [address] | | | [place] [address] | + + + | Home Phone | | + + + | Preferred Language | Unknown | + + + | Marital Status | Single | + + + | Rastafari Affiliation | NON | + + + | Race | White | + + + | Ethnic Group | Not or | + + + Author + + + | Author | [facility] | + + + | Organization | [facility] | + + + | Address | Unknown | + + + | Phone | Unavailable | + + + Support + + +---------+ + | Name | Relationship | Address | Phone | + + +---------+ + | Compa Cristiana | ECON | Unknown | | + + +---------+ + Care Team Providers + +------+ + | Care Crm Marketing Executive Name | Role | Phone | + +------+ + | No Pcp Per Patient | PCP | Unavailable | + +------+ + Source Comments HAM is fully live on both [facility] Ambulatory and [facility] InPatient.[facility] Allergies + + + + + + | Active Allergy | Reactions | Severity | Noted | Comments | | | | | Date | | + + + + + + | Codeine | Pruritus | Medium | 04/17/20 | | | | | | 14 | | + + + + + + | Demeclocycline | Unknown | Medium | 06/03/19 | Other reaction(s): | | | | | 14 | Other (See | | | | | | Comments), Patient | | | | | | Does Not Remember | + + + + + + | Hydrocodone | Pruritus | Medium | // | | | | | | 14 | | + + + + + + | Hydrocodone-Acetamin | Pruritus, Rash | High | 03/22/20 | | | ophen | | | 08 | | + + + + + + | Morphine | Pruritus | Medium | /06/21 | | | | | | 16 | | + + + + + + | Oxycodone | Pruritus | Medium | 06/06/19 | | | | | | 14 | | + + + + + + | Oxycodone-Acetaminop | Pruritus, Rash | High | 02/02/20 | | | hen | | | 12 | | + + + + + + | Prednisone | Unknown, Rash | Medium | 07/09/19 | Other reaction(s): | | | | | 17 | Other (See | | | | | | Comments) Rash, | | | | | | Other reaction(s): | | | | | | Other (See Comments) | | | | | | Other reaction(s): | | | | | | Other (See | | | | | | Comments) Other | | | | | | reaction(s): Other | | | | | | (See Comments) | + + + + + + | Tetracycline | Unknown | High | 08/24/19 | Other reaction(s): | | | | | 14 | Other (See | | | | | | Comments), Other | | | | | | (See Comments) | | | | | | Unknown reaction | | | | | | Unknown reaction | + + + + + + Medications + + + +---------+------+------+-------+ | Medication | Sig | Dispensed | Refills | Star | End | Statu | | | | | | t | Date | s | | | | | | Date | | | + + + +---------+------+------+-------+ | traZODone 100 mg | TAKE TWO TABLETS BY | | 0 | 09/2 | | Activ | | oral tablet | MOUTH NIGHTLY AT | | | 3/20 | | e | | | BEDTIME | | | 19 | | | + + + +---------+------+------+-------+ | atorvastatin 20 mg | | | 0 | 12/0 | | Activ | | oral tablet | | | | 8/20 | | e | | | | | | 19 | | | + + + +---------+------+------+-------+ | DULoxetine 60 mg | TAKE ONE CAPSULE BY | | 0 | 12/0 | | Activ | | oral capsule,delayed | MOUTH ONE TIME DAILY | | | 9/20 | | e | | release(DR/EC) | | | | 19 | | | + + + +---------+------+------+-------+ | gabapentin 300 mg | | | 0 | 12/0 | | Activ | | oral capsule | | | | 7/20 | | e | | | | | | 19 | | | + + + +---------+------+------+-------+ | omeprazole 20 mg | | | 0 | 12/0 | | Activ | | oral capsule,delayed | | | | 9/20 | | e | | release(DR/EC) | | | | 19 | | | + + + +---------+------+------+-------+ | albuterol 90 | | | 0 | 12/0 | | Activ | | mcg/actuation | | | | 9/20 | | e | | inhalation HFA | | | | 19 | | | | aerosol inhaler | | | | | | | + + + +---------+------+------+-------+ | ATROVENT HFA 17 | | | 0 | 10/1 | | Activ | | mcg/actuation | | | | 1/20 | | e | | inhalation HFA | | | | 19 | | | | aerosol inhaler | | | | | | | + + + +---------+------+------+-------+ | loratadine 10 mg | Take 1 tab daily. | | 0 | 08/2 | | Activ | | oral tablet | | | | 1/20 | | e | | | | | | 14 | | | + + + +---------+------+------+-------+ Active Problems No known active problems Encounters +--------+---------+ + + + | Date | Type | Specialty | Care Team | Description | +--------+---------+ + + + | 04/11/ | Office | Orthopedics | Narciso Evangelista MD | Chronic low back | | 2018 | Visit | | | pain, unspecified | | | | | | back pain | | | | | | laterality, | | | | | | unspecified whether | | | | | | sciatica present | | | | | | (Primary Dx) | +--------+---------+ + + + | 04/11/ | Travel | | | | | 2018 | | | | | +--------+---------+ + + + from Last 3 Months Social History + + + +--------+------+ | [...] + + + + Plan of Treatment + + + + + | Health Maintenance | Due Date | Last Done | Comments | + + + + + | Influenza (Flu) | Completed | 01/26/2019, 01/24/2017, | | | vaccination | | 02/10/2016, Additional history | | [...] | | | + +--------+ +--------+-------+---------+--------+ | FINANCE INTERN MEDICAID | FINANCE INTERN | xxxxxxxx | | | | Medica [...] | Self | [birth year] | [address] | | | al/Fam | | 1965 | [phone] | [place] [address] | | | shani | | | 2 (Home) | | + +--------+ +--------+ + +
--- OUTSIDE RECORDS SUMMARY | ~2019-04-17 | XMS | Encounter Summary ---
Demographics + + + | Address | [address] | | | [place] [address] | + + + | Home Phone | | + + + | Preferred Language | Unknown | + + + | Marital Status | | + + + | Yazidism Affiliation | Unknown | + + + | Race | Unknown | + + + | Ethnic Group | Unknown | + + + Author + + + | Author | [facility] | | | and [place] | + + + | Organization | [facility] | | | [...] Team Providers + +------+ + | Care Line Out Worker Name | Role | Phone | + [...] | | double | GAMA Sandhu | [address] | | | | | stranded DNA | [address] | [address] | | | | | antibody | St | [place] | | | | | test, | [place], [place] | [address] | | | | | Chronic | [address] | Phone: | | | | | joint pain | Phone: | [phone] | | | | | | [phone] | Fax: | | | | | | | [phone] | +--------+--------+ + + + + Encounter Details +--------+---------+ + + + | Date | Type | Department | Care Team | Description | +--------+---------+ + + + | 02/21/ | Office | [facility] | Roge Chow, | Polyarthralgia | | 2019 | Visit | RHEUMATOLOGY [address] | PA-C [address] | (Primary Dx); High | | | | [address] | risk medication use; | | | | [place] | [place] [address] | Osteoarthritis, | | | | [address] | [phone] | unspecified | | | | [phone] | | osteoarthritis type, | | | [...] encounter Patient Instructions Patient Instructions Tamara Boles Powersaw Supervisor - 02/21/2019 1:20 PM PDTWe hop e that you have experienced exceptional care today and that you found our service to be cour teous and helpful. ? If you have any questions/concerns or need medication refills you can send us a message/r equest using Bityota or by calling our office at [phone]. o If you would like to reach my medical grade shoemaker, Paula Boles please call [phone] Ext: [phone] ? If you are unable to reach [...] can also look at your results on Bityota. If you are experiencing an emergency, please [...] hepatitis C virus (HCV)/(AIDS), L ymphoma, Sarcoidosis, Wqnrn-ahktyh-jkkl disease, Recent use of medications with anticholiner [...] ROS. Past Medical History: Diagnosis Date Alcoholism ([facility]) Arthritis Chemical dependency ([facility]) Depression H/O bronchitis H/O psychiatric care H/O: pneumonia Suicide attempt ([facility]) Current Outpatient Medications: albuterol 90 mcg/puff inhaler, [...] 360 hour(s)). Laboratory results were reviewed in [facility] as well as chart notes and [...] MD | | | | | | [address] | | | | | | [place] | | | | | | [id number] | | | | | | | [...]
--- OUTSIDE RECORDS SUMMARY | ~2019-04-17 | XMS | Clinical Summary ---
Demographics + + + | Address | [address] | | | [place] [address] | + + + | Home Phone | | + + + | Preferred Language | Unknown | + + + | Marital Status | Single | + + + | Pentecostalism Affiliation | NON | + + + | Race | White | + + + | Ethnic Group | Not or | + + + Author + + + | Author | [facility] | + + + | Organization | [facility] | + + + | Address | Unknown | + + + | Phone | Unavailable | + + + Support + + +---------+ + | Name | Relationship | Address | Phone | + + +---------+ + | Compa Cristiana | ECON | Unknown | | + + +---------+ + Care Team Providers + +------+ + | Care Cleaning Professional Name | Role | Phone | + +------+ + | No Pcp Per Patient | PCP | Unavailable | + +------+ + Source Comments HAM is fully live on both [facility] Ambulatory and [facility] InPatient.[facility] Allergies + + + + + [...] | | | + +--------+ +--------+-------+---------+--------+ | [employer] MEDICAID | [employer] | xxxxxxxx | | | | Medica [...] | 1965 | [phone] | [place] [address] | | | shani | | | 2 (Home) | | + +--------+ +--------+ + +
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
--- OUTSIDE RECORDS SUMMARY | ~2019-04-17 | XMS | Encounter Summary ---
Demographics + + + | Address | [address] | | | [place] [address] | + + + | Home Phone | | + + + | Preferred Language | Unknown | + + + | Marital Status | Single | + + + | Jew Affiliation | NON | + + + [...] Team Providers + +------+ + | Care Transformer Inspector Name | Role | Phone | [...]
--- OUTSIDE RECORDS SUMMARY | ~2019-04-17 | XMS | Encounter Summary ---
Demographics + + + | Address | [address] | | | [place] [address] | + + + | Home Phone | | + + + | Preferred Language | Unknown | + + + | Marital Status | | + + + | Anabaptism Affiliation | Unknown | + + + [...] Team Providers + +------+ + | Care Attendant Honor Bar Name | Role | Phone | + [...] | | | | [place] | [phone] | | | | | [address] | | | | | | [phone] | | | +--------+ + + + [...] [place] | | | | | | [address] | | | | | | | | +--------+---------+ + + + documented as of this encounter Visit Diagnoses Not on filedocumented in this encounter"
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
--- OUTSIDE RECORDS SUMMARY | ~2019-04-17 | XMS | Encounter Summary ---
Demographics + + + | Address | [address] | | | [place] [address] | + + + | Home Phone | | + + + | Preferred Language | Unknown | + + + | Marital Status | | + + + | Yazdanism Affiliation | Unknown | + + + | Race | Unknown | + + + | Ethnic Group | Unknown | + + + Author + + + | Author | [facility] | | | and [place] | + + + | Organization | [facility] | | [...] Team Providers + +------+ + | Care Waterproof Material Folder Name | Role | Phone | + [...] + + | 03/22/ | Office | [facility] | [place], | Macrocytosis | | 2019 | Visit | HEMATOLOGY AND | Juan R Gray MD | (Primary Dx); | | | | ONCOLOGY [place] | [address] | Leukopenia, | | | | [address] | [facility] [place] | unspecified type | | | | [place] | [address] | | | | | [address] | | | | | | [phone] | | | +--------+---------+ + + + [...] might be dif ferent from the original. [facility] Hematology & Oncology Hematology Progress Note Patient [...] file Gets together: Not on file Attends voodoo service: Not on file Active member of [...] - 0.9 AI Final Testing performed at [address] [address] SS-A Autoantibody 01/24/2019 <0.2 0.0 - 0.9 AI Final Testing performed at [address] [address] Cyclic citrullinated peptide Ab.Ig* 01/24/2019 9 0 - 19 units Final Comment: Negative <20 Weak positive 20 - 39 Moderate positive 40 - 59 Strong positive >59 Testing performed by [employer], [address] [facility] [address] ESR 01/24/2019 14 0 - 30 mm/Hr Final Testing performed at [facility];[address] [place] [address];[place] [address] CRP 01/24/2019 <0.3 <0.5 mg/dL Final Testing performed at [facility];[address] [place] [address];[place] [address] Na 01/24/2019 139 135 - 145 mmol/L [...] MDRD IDMS traceable equation. Testing performed at [facility];[address] [place] [address];[place] [address] WBC 01/24/2019 3.46* 3.80 - 11.00 K/uL [...] K/uL Final Testing performed at [facility];[address];[place] [address] Assessment Ms. Nuvia Butcher is a pleasant [...] to her satisfaction. Juan R Harris MD [facility] Hematology & Oncology 03/22/2019 Portions of this [...] [place] | | | | | | [address] | | | | | | | [...]
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
--- OUTSIDE RECORDS SUMMARY | ~2019-04-17 | XMS | Encounter Summary ---
Demographics + + + | Address | [address] | | | [place] [address] | + + + | Home Phone | | + + + | Preferred Language | Unknown | + + + | Marital Status | | + + + | Spiritism Affiliation | Unknown | + + + | Race | Unknown | + + + | Ethnic Group | Unknown | + + + Author + + + | Author | [facility] | | | and [place] | + + + | Organization | [facility] | | | [...] Team Providers + +------+ + | Care Seed Laboratory Assistant Name | Role | Phone | + +------+ + | Bhakti Dietz PA-C | PCP | | + +------+ + Encounter Details +--------+ + + + + | Date | Type | Department | Care Team | Description | +--------+ + + + + | 12/15/ | Orders Only | [facility] | [place], | Other specified | | 2019 | | HEMATOLOGY AND | Juan R Gray MD | diseases of blood | | | | ONCOLOGY [place] | [address] | and blood-forming | | | | [address] | [place] | organs; Other | | | | [place], [place] | [address] | neutropenia (HCC) | | | | [address] | | | | | | [phone] | | | +--------+ + + + [...] [place] | | | | | | [address] | | | | | | | [...]
--- OUTSIDE RECORDS SUMMARY | ~2019-04-17 | XMS | Encounter Summary ---
Demographics + + + | Address | [address] | | | [place] [address] | + + + | Home Phone | | + + + | Preferred Language | Unknown | + + + | Marital Status | Single | + + + | Confucianism Affiliation | NON | + + + | Race | White | + + + | Ethnic Group | Not or | + + + Author + + + | Author | [facility] | + + + | Organization | [facility] | + + + | Address | Unknown | + + + | Phone | Unavailable | + + + Support + + +---------+ + | Name | Relationship | Address | Phone | + + +---------+ + | Compa Zendejas | ECON | Unknown | | + + +---------+ + Care Team Providers + +------+ + | Care Refinery Operator Visbreaking Name | Role | Phone | + [...] | | | back pain, | [address] | [address] | | | | | unspecified | 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 | Mailcode: | | | | | back pain | Rd | [facility] | | | | | laterality, | [place], [place] | for Health | | | | | unspecified | [address] | and Healing, | | | | | whether | Phone: | Building | | | | | sciatica | [phone] | [address]th Floor | | | | | present | Fax: | [place], [place] | | | | | Procedures | [phone] | [address] | | | | | CONSULT TO | | Phone: | | | | | PAIN | | [phone] | | | | | MANAGEMENT | | Fax: | | | | | | | [phone] | + +---------+ + + + + [...] | stenosis, | Zahira Valenzuela, | [address] [facility] [facility] [address] | | | | | lumbar | [place] [address] | [place] | | | | | region | [address] | [address] [place], | | | | | without | [place], | [place] | | | | | neurogenic | [place] [address] | [address] | | | | | claudication | Phone: | Phone: | | | | | Procedures | [phone] | [phone] | | | | | ELVIS | Fax: | Fax: | | | | | | [phone] | [phone] | + +--------+ + + + + Encounter Details +--------+---------+ + + + | Date | Type | Department | Care Team | Description | +--------+---------+ + + + | 04/11/ | Office | Orthopaedics at | Narciso Evangelista MD | Chronic low back | | 2019 | Visit | [facility] [address] | [address] [place] | pain, unspecified | | | | Ave Mailcode: CH12A | [place], | back pain | | | | [place] for [facility] | [place] [address] | laterality, | | | | and Healing, | [phone] | unspecified whether | | | | Building | | sciatica present | | | | Floor [place], [place] | | (Primary Dx) | | | | [address] | | | | | | [phone] | | | +--------+---------+ + + + [...] she has had physical therapy without intermediate manager relief. She notes multiple injur ies over [...] file Gets together: Not on file Attends worship service: Not on file Active member of [...] CONSULT TO PAIN MANAGEMENT PHYSICAL THERAPY REFERRAL [facility] [phone] (fax) Order Specific Question: Provider order? (ex:"Eval and Treat") Answer: Eval and treat for low back pain Consider further imaging and/or consultation if no improvement. Call or return to clinic if these symptoms worsen or fail to improve as anticipated. Narciso Evangelista M.D. Vice President Media Relations Physical Medicine and Rehabilitation documented in this enco unter Plan of Treatment Not on filedocumented as of this encounter Visit Diagnoses + + | Diagnosis | + + | Chronic low back pain, unspecified back pain laterality, unspecified whether sciatica | | present - Primary | + + documented in this encounter
--- OUTSIDE RECORDS SUMMARY | ~2019-04-17 | XMS | Encounter Summary ---
Demographics + + + | Address | [address] | | | [place] [address] | + + + | Home Phone | | + + + | Preferred Language | Unknown | + + + | Marital Status | Single | + + + | Nondenominational Affiliation | NON | + + + [...] Team Providers + +------+ + | Care Marketing Consultant Name | Role | Phone | [...]
[~2019-04-17 08:02] MED LIST changes: +PREDNISONE20 MG PO
--- OUTSIDE RECORDS SUMMARY | 2019-04-17 08:06 | XMS ---
PreManage Notification: ROSS BUTCHER Security Rn Trauma Events No recent Security Events currently on file CRITERIA MET - 6 ED Visits in 6 Months - [facility] - Has Care Guidelines - [facility] - 3 Facilities in 90 Days - PDMP - [facility] - 2 Visits in 30 Days CARE PROVIDERS WALALCE CHUA [facility] 10/10/2017-Current PHONE: Unknown Niko Maddox Community Health Worker 03/02/2019-Current PHONE: [phone] BLANQUITA [facility]: Critical 01/22/2018-Current [facility] PHONE: [phone] Hayes Pepe Counselor: Mental Health 03/14/2015-Current PHONE: [phone] JULITA LIZAM[address]I [facility] Current PHONE: Unknown HARMEET MOSES [facility] Current PHONE: Unknown LAURA LANDRUM [facility] Current PHONE: Unknown BRIANA TAYLOR Primary [facility] 01/23/2018-Scarlet JUARES PHONE: [phone] ARLENE Shah [facility] Current PHONE: Unknown WALLACE CHUA Primary [facility] 10/10/2017-Current PHONE: Unknown [facility] Care 05/10/2016-11/28/2015 [facility] PHONE: [phone] HARSHIL GONSALEZ Primary Care Current PHONE: Unknown BK TAPIA Primary [facility] Current PHONE: Unknown Hayes Pepe Primary [facility] 03/14/2015-Current PHONE: [phone] PATRICIA JACOBS Primary Care Current PHONE: Unknown ELFEGO ABBASI Primary Care Current PHONE: Unknown DOMENICA RÍOS Primary Care Current PHONE: Unknown JAZZ VALLADARES Primary Care Current PHONE: Unknown Patricia Jacobs Primary Care Current PHONE: Unknown [facility] Primary Care 04/14/2015-[facility] \T\ [facility] PHONE: [phone] CAROL DOE Primary Care Current PHONE: [phone] Vel has no Care Guidelines for this patient. Care History Medical/Surgical 03/05/2019 [facility] - DUE TO PATIENT COMPLEX HEALTH AND MENTAL HEALTH HISTORY-[facility] REFERRAL WAS MADE FOR FURTHER COMPLEX CASE MANAGEMENT FOR PHYSICAL AND MENTAL HEALTH NEEDS. Substance Use/Overdose 03/06/2019 [facility] Client and refusing detox - \T\quot;it doesn\T\#39;t work\T\quot;.\T\ nbsp; Provided with Peer Support information for [facility], local AA programs.\T\nbsp; Please contact Niko at [phone] if client comes into ER.\T\nbsp; Will re-attempt to engage in services. E.D. VISIT COUNT (12 MO.) 1 [facility] H. 9 [facility] 4 [facility] [place] [facility] TOTAL 14 NOTE: Visits indicate total known visits. ED/UCC VISIT TRACKING (12 MO.) 04/17/2019 08:03 [facility] [place] TYPE: Emergency COMPLAINT: - CHEST PAIN 04/13/2019 21:22 [facility] [place] TYPE: Emergency DIAGNOSES: - Alcohol Intoxication - Suicidal ideations - Alcohol use, unspecified with intoxication, uncomplicated 04/12/2019 18:03 [facility] [place] TYPE: Emergency COMPLAINT: - BREATHING CONCERNS DIAGNOSES: - Shortness of breath - Chronic obstructive pulmonary disease w (acute) exacerbation - Nicotine dependence, unspecified, uncomplicated - Major depressive disorder, single episode, unspecified - Low back pain - Other chronic pain - Allergy status to sulfonamides status - Anxiety disorder, unspecified 04/12/2019 17:01 [employer] [facility] [place] TYPE: Emergency DIAGNOSES: - SHORTNESS OF BREATH 03/05/2019 01:56 [facility] [place] TYPE: Emergency DIAGNOSES: - Other psychoactive substance abuse, uncomplicated - INTOXICATED 03/04/2019 13:50 [facility] [place] TYPE: Emergency COMPLAINT: - URINATION PROBLEMS DIAGNOSES: - Allergy status to sulfonamides status - Retention of urine, unspecified - Alcohol abuse, uncomplicated - Nicotine dependence, unspecified, uncomplicated - Urinary tract infection, site not specified 03/01/2019 23:16 [employer] [facility] [place] TYPE: Emergency DIAGNOSES: - OVERDOSE 02/27/2019 20:22 [facility] TYPE: Emergency COMPLAINT: - Abdominal Pain DIAGNOSES: - Retention of urine, unspecified - Alcohol use, unspecified with intoxication, uncomplicated - Unspecified abdominal pain - Abdominal Pain 2019 17:47 [facility] [place] TYPE: Emergency DIAGNOSES: - Poisoning by unsp narcotics, intentional self-harm, init - overdose - Alcohol use, unspecified with intoxication, uncomplicated 01/14/2019 22:13 [facility] [place] TYPE: Emergency COMPLAINT: - ABDOMINAL PAIN DIAGNOSES: - Anxiety disorder, unspecified - 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 - Major depressive disorder, single episode, unspecified - Generalized abdominal pain - Dvrtclos of intest, part unsp, w/o perf or abscess w/o bleed - Nicotine dependence, unspecified, uncomplicated - Gastro-esophageal reflux disease without esophagitis - Allergy status to sulfonamides status 01/10/2019 10:03 [employer] [facility] [place] TYPE: Emergency DIAGNOSES: - VOMITING BLOOD 10/20/2018 15:52 [facility] [place] TYPE: Emergency DIAGNOSES: - Alcoholic gastritis without bleeding - Alcohol abuse, uncomplicated - Alcohol dependence with withdrawal, uncomplicated - ABD PAIN 10/19/2018 15:58 [employer] [facility] [place] TYPE: Emergency DIAGNOSES: - Alcohol use, unspecified with intoxication, uncomplicated - DEHYDRATION 05/17/2018 10:41 [facility] [place] TYPE: Emergency DIAGNOSES: - 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
[2019-04-17] MEDS ORDERED: CYMBALTA20 MG PO (08:11)
[2019-04-17] MEDS ORDERED: TYLENOL325 M1 PO (08:11)
[2019-04-17] MEDS ORDERED: TRAZODONE HCL100 MG PO (08:12)
[2019-04-17] MEDS ORDERED: OMEPRAZOLE20 MG PO (08:12)
[2019-04-17] MEDS ORDERED: NEURONTIN300 MG PO (08:12)
--- NOTE | 2019-04-17 12:54 | EKG ---
[facility] [address] [place] [address] Signed Sinus tachycardia Otherwise normal ECG No previous ECGs available Confirmed by JESS JUSTIN MD ([id number]) on 04/17/2019 12:54:06 PM Electronically Signed By: JESS JUSTIN MD 04/17/19 1254 PATIENT NAME: ROSS BUTCHER GEORGE Electrocardiogram DATE OF : 65 PHYSICIAN: JESS JUSTIN MD REPORT #: [id number] REPORT IS CONFIDENTIAL AND NOT TO BE RELEASED WITHOUT AUTHORIZATION
== END 2019-04-17 10:50 | disposition home or self-care (01) ==
LOC: ED 08:02
DX: K29.71 Gastritis, unspecified, with bleeding (principal); J44.9 Chronic obstructive pulmonary disease, unspecified; K21.9 Gastro-esophageal reflux disease without esophagitis; F32.9 Major depressive disorder, single episode, unspecified; F41.9 Anxiety disorder, unspecified; F17.200 Nicotine dependence, unspecified, uncomplicated; Z88.2 Allergy status to sulfonamides; Z88.1 Allergy status to other antibiotic agents; Z79.899 Other long term (current) drug therapy
CPT/HCPCS: 71045; 80053; 84484; 85025; 85379; 93005; 93010; 96361; 96374; 96375; 99284-25; G0480; J2405; J7030

== ENCOUNTER 2019-08-01 12:36 | Inpatient (IN) | payer MEDICAID ==
[~2019-08-01] VITALS: Ht 167.6 cm; Wt 85.9 kg
--- NOTE | ~2019-08-01 | CONS ---
[facility] [address], [place] [address] Draft DATE OF CONSULTATION: 08/01/2019 CONSULTING PHYSICIAN: Lorena Solomon MD. REQUESTING PHYSICIAN: Gregg Teran MD. PROBLEM: Acute cholecystitis with hydrops and sludge of gallbladder, concomitant alcohol withdrawal issues. HISTORY OF PRESENT ILLNESS: This 54-year-old white woman has chronic alcoholism and was entering a detox program locally. She was transferred to the emergency room and evaluated by Dr. Farhad Mccarthy for "medical clearance" to go to detox. The patient was considered barely arousable to sternal and painful stimuli. She had imbibed Librium as well as a bottle of alcohol prior to her evaluation. She was noted on physical examination to have marked tenderness in the right upper abdomen, consistent with acute cholecystitis. On that basis, a gallbladder ultrasound was performed, which showed a hydropic gallbladder with sludge. Fatty liver was additionally noted. There was no nodularity noted. Her laboratory studies showed electrolyte disturbance including hypokalemia and a white count of only 3.6. Her ammonia level was elevated at 69, alkaline phosphatase elevated at 337, ALT 293, AST 352, bilirubin was normal at 0.8. A tox screen showed no illicit drugs in her evaluation other than benzodiazepines, which would be accounted by her Librium use. Alcohol level was markedly elevated, I believe at 365, though the numbers are not available to me at this time. She was admitted to the intensive care unit in management for alcohol withdrawal, undertaken by Dr. Teran. The patient had recovery of her sensorium and is interactive and reasonably alert and oriented. She does appear to be somewhat uncomfortable in relation to alcohol withdrawal problems. She is mildly tachycardic, but not hypotensive or hypertensive. MEDICATIONS: Her medicines at admission included omeprazole, trazodone, venlafaxine, Atrovent, and Librium. ALLERGIES: She has allergies to sulfa medications and tetracycline. REVIEW OF SYSTEMS: PATIENT NAME: ROSS BUTCHER CONSULTATION DATE OF : 65 REPORT #: [id number] PHYSICIAN: LORENA SOLOMON MD PCP: LAURA LANDRUM PA-C REPORT IS CONFIDENTIAL AND NOT TO BE RELEASED WITHOUT AUTHORIZATION [facility] [address], [place] [address] Draft Her pain is mostly in the upper abdomen and has been present for several days. I subsequently spoke with her , who confirmed this. She has had no hematemesis or blood per rectum. She is not known to have portal hypertension. PHYSICAL EXAMINATION: GENERAL: This is a somewhat disheveled white woman, who is able to answer questions, but clearly has altered sensorium to this point. HEENT: Mucous membranes are slightly dry. Trachea is midline. CHEST: Shows normal respiratory excursion. HEART: Regular. Heart rate is approximately 112. Blood pressure is 122/79. ABDOMEN: Obese, but soft. There is no obvious ascites. There is marked tenderness in the right upper abdomen. I detect no mass. EXTREMITIES: Show no clubbing, cyanosis, or edema. LABORATORY DATA: Lab studies show white count of 3.6, hematocrit of 42.7, and platelets of 113,000. Chem profile as previously noted, potassium of 2.9, creatinine 0.68, glucose 164. Elevated liver enzymes as noted, bilirubin of 0.8, ammonia level was 69. Urinalysis was essentially normal. I have reviewed the ultrasound that was performed, which shows a dilated gallbladder, mildly thickened wall and sludge in the neck of the gallbladder. ASSESSMENT: The clinical appearance is that of acute cholecystitis in the background setting of alcohol withdrawal. A plan for detoxification had been anticipated and a medical clearance was requested and of course, the findings as above would preclude discharge from the hospital for a detox program at the moment. Cholecystectomy would be indicated for her findings of acute cholecystitis with hydrops of the gallbladder. She would be at increased risk for perioperative complications based on her alcohol withdrawal problem obviously. For now, IV antibiotics, IV fluids, and electrolyte correction is undertaken. I called her at home and reviewed these factors with him. His phone number was [phone]. He agrees that cholecystectomy would be appropriate if recommended and we discussed this in detail also. PLAN: We will re-evaluate in the morning regarding her electrolyte issues, her progress with avoidance of delirium tremens, and consider for cholecystectomy tomorrow. The extent to which the cholecystitis contributes to her delirium is uncertain, but somewhat unlikely I believe. Notably, her white count is normal. To my knowledge, a lactic acid level has not been obtained, but might be appropriate in the morning as well. Lorena Solomon MD PATIENT NAME: ROSS BUTCHER CONSULTATION DATE OF : 65 REPORT #: [id number] PHYSICIAN: LORENA SOLOMON MD PCP: LAURA LANDRUM PA-C REPORT IS CONFIDENTIAL AND NOT TO BE RELEASED WITHOUT AUTHORIZATION [address] [address] Draft [facility] /[id number] cc: MD Dinah Marin PA-C Copies: GREGG TERAN DO ~ PATIENT NAME: ROSS BUTCHER CONSULTATION DATE OF : 65 REPORT #: [id number] PHYSICIAN: LORENA SOLOMON MD PCP: LAURA LANDRUM PA-C REPORT IS CONFIDENTIAL AND NOT TO BE RELEASED WITHOUT AUTHORIZATION
--- NOTE | ~2019-08-01 | OR ---
[facility] [address], [place] [address] Draft DATE OF OPERATION: 08/02/2019 SURGEON: Lorena Solomon MD PREOPERATIVE DIAGNOSES: 1. Acute acalculous cholecystitis (hydropic gallbladder with peritoneal signs. 2. Alcohol withdrawal syndrome. 3. Obesity. POSTOPERATIVE DIAGNOSES: 1. Acute acalculous cholecystitis (hydropic gallbladder with peritoneal signs. 2. Alcohol withdrawal syndrome. 3. Obesity. PROCEDURES: 1. Laparoscopic cholecystectomy with intraoperative cholangiogram. 2. Surgeon-directed fluoroscopy. ANESTHESIA: General endotracheal; Lorena Isbell CRNA and local 10 mL of 0.25% Marcaine with epinephrine. INDICATIONS: This 54-year-old obese white woman has chronic alcoholism and presented to the emergency room yesterday with severe intoxication related to drinking an entire bottle of alcohol, possibly vodka as well as imbibing Librium. She is noted to have markedly elevated liver enzymes and marked tenderness in right subcostal area though she was poorly responsive otherwise. Evaluation included gallbladder ultrasound showing a markedly hydropic gallbladder with gallbladder sludge. There is no sign of intrahepatic ductal dilatation. She is admitted by Dr. Teran and consultation was undertaken by myself. She has been in the Intensive Care Unit with alcohol withdrawal prophylaxis ongoing. Notably, she was on her way to a detoxification center when she was diverted to the emergency room from the detox center for "medical stabilization." She has improved as regards her delirium quite markedly. Electrolyte abnormalities have been remedied, and she continues to have right subcostal tenderness. She has been recommended to undergo cholecystectomy preferred by laparoscopic approach. The risks of bleeding, infection, need for open procedure, bile duct injury, and other unforeseen complications have been reviewed in detail with her. Special note, though she has no marquis overt bleeding, she does have a diminished platelet count of 104,000, down from PATIENT NAME: ROSS BUTCHER OPERATIVE REPORT DATE OF : 65 REPORT #: [id number] PHYSICIAN: LORENA SOLOMON MD PCP: LAURA LANDRUM PA-C REPORT IS CONFIDENTIAL AND NOT TO BE RELEASED WITHOUT AUTHORIZATION [facility] [address], [place] [address] Draft 120,000 yesterday, normal Pro-time, hematocrit of 30.2 and has been given vitamin K preoperatively, though she does have a normal INR. FINDINGS: Entry into the abdomen was without difficulty. She had a very enlarged liver related to fatty infiltration, but no evidence of cirrhosis proper. The gallbladder itself was markedly distended and hydropic. It was not gangrenous by any means. Cholecystectomy was rather prolonged, complicated, difficult based on the oozing, bleeding, and dysmorphic anatomy of the gallbladder related to its hydropic nature. Cholangiogram was normal, however, showing a relatively long and thin cystic duct. No sign of filling defect within the biliary tree and conventional anatomy otherwise. DESCRIPTION OF PROCEDURE: The patient was brought to the operating room, given a general endotracheal anesthetic. Preoperative antibiotic, ticarcillin had been given. Sequential compression device stockings were used. After satisfactory anesthesia, the abdomen was prepared with a chlorhexidine solution and draped sterilely. An infraumbilical incision was made using an open Janet cannula technique. Pneumoperitoneum was achieved to a level of 14 mmHg of carbon dioxide gas. Intraabdominal inspection showed no sign of ascites or carcinomatosis. The liver was completely obscured by omentum draped over it. Three additional trocars were placed in the usual position in the epigastric, right midclavicular, and right anterior axillary line. With two-hand manipulation, the omentum was unfurled over the liver and the gallbladder revealing a markedly and massively distended gallbladder with subacute inflammation. The gallbladder could not be grasped and elevated cephalad due to the bulky nature of the liver at that point. A needle decompression of the gallbladder was undertaken, the puncture site grasped, elevated cephalad as much as reasonably able. Omental adhesions and undersurface of the gallbladder were taken down with meticulous care using blunt and electrocautery dissection. Still the gallbladder was quite massively distended and cephalad elevation was deemed most appropriate. The puncture site of the gallbladder was secured with an Endo-loop and the midportion of the gallbladder was used to provide for cephalad traction. Using blunt and electrocautery dissection, the infundibulum ultimately could be identified. There were numerous small blood vessels associated with the gallbladder, though it did not appear to be typical of portal hypertension per se. The cystic duct was ultimately identified as was the cystic artery. A clip applied across gallbladder cystic duct junction and a transverse choledochotomy made in the cystic duct. Egress of clear bile was noted. Using an Lozano type cholangiocatheter, intraoperative cholangiography was undertaken showing free flow of contrast into the biliary tree with emptying into the cystic duct. The biliary tree was slightly dilated, but not much and ultimately retrograde filling was noted as well. There was no sign of obstruction of the duct. The cystic duct was PATIENT NAME: ROSS BUTCHER OPERATIVE REPORT DATE OF : 65 REPORT #: [id number] PHYSICIAN: LORENA SOLOMON MD PCP: LAURA LANDRUM PA-C REPORT IS CONFIDENTIAL AND NOT TO BE RELEASED WITHOUT AUTHORIZATION [facility] [address], [place] [address] Draft triply clipped and divided. The gallbladder dissected free in a retrograde fashion. Entry to the very thin-walled gallbladder was noted, but no spillage of stones, bile was suctioned free. Ultimately, the entire gallbladder was dissected free in a retrograde fashion, placed in an Endobag and extracted through the infraumbilical port site, opened on the back table and found to have chronic and acute inflammatory change. Irrigation was undertaken in the subhepatic space. There was good hemostasis overall. Some Carlos powder was used to additionally to effect hemostasis in the inferolateral aspect of the liver bed. Through a right-sided trocar site, a 7 mm flat Phan drain was placed in the subhepatic space. Excess irrigation fluid was suctioned free. Plans were then made for closure. Not mentioned previously was the placement of a 5 mm port in the epigastric area to allow for a fan retractor due to her significant obesity and omental retraction that was necessary. All the port sites were hemostatic. Infraumbilical port site was reapproximated to the fascial layer with interrupted 0-Vicryl suture and additionally 0-PDS suture in a running configuration. A 10 mL of 0.25% Marcaine with epinephrine was injected locally. The skin was then closed with interrupted 3-0 Vicryl. Steri-Strips were applied. The patient was ultimately extubated and transferred to the recovery room in good condition having suffered no complications. The drain had been secured to bulb suction and secured to the skin with nylon suture. The operation was rather prolonged, complicated, difficult due to the aforementioned factors predominantly inflammation and hydropic appearance of the gallbladder, lasting four times longer than usual. Lorena Solomon MD [facility] /[id number] cc: MD Farhad Marin Copies: ENDER TERAN DO PATIENT NAME: ROSS BUTCHER GEORGE OPERATIVE REPORT DATE OF : 65 REPORT #: [id number] PHYSICIAN: LORENA SOLOMON MD PCP: LAURA LANDRUM PA-C REPORT IS CONFIDENTIAL AND NOT TO BE RELEASED WITHOUT AUTHORIZATION [address] [address] FARHAD Bell MD ~ PATIENT NAME: ROSS BUTCHER OPERATIVE REPORT DATE OF : 65 REPORT #: [id number] PHYSICIAN: LORENA SOLOMON MD PCP: LAURA LANDRUM PA-C REPORT IS CONFIDENTIAL AND NOT TO BE RELEASED WITHOUT AUTHORIZATION
[~2019-08-01 12:36] MED LIST changes: +CYMBALTA20 MG PO; +NEURONTIN300 MG PO; +TYLENOL325 M1 PO
--- OUTSIDE RECORDS SUMMARY | 2019-08-01 12:40 | XMS ---
PreManage Notification: ROSS BUTCHER Security Steam Trap Man Events No recent Security Events currently on file CRITERIA MET - 6 ED Visits in 6 Months - [facility] - Has Care Guidelines - [facility] - 3 Facilities in 90 Days - PDMP - [facility] - 2 Visits in 30 Days CARE PROVIDERS Niok Maddox Community Health Worker 03/02/2019-Current PHONE: [phone] HARMEET MOSES Credit Professional Current PHONE: [phone] LIGIA SMART Strip Winder: Clinical Scarlet BECKHAM PHONE: [phone] BLANQUITA [facility]: Critical 01/22/2018-Current [facility] PHONE: [phone] Hayes Pepe Counselor: Mental Health 03/14/2015-Current PHONE: [phone] WALLACE [facility] 10/10/2017-Current PHONE: Unknown [facility] PHONE: Unknown [facility] Other 05/21/2019-Current JAVIER PHONE: Unknown HARMEET MOSES [facility] Current PHONE: Unknown BRIANA [facility] 01/23/2018-[facility] PHONE: [phone] ARLENE Shah [facility] Current PHONE: Unknown [facility] 05/10/2016-11/28/2015 [facility] PHONE: [phone] HARSHIL GONSALEZ [facility] Current PHONE: Unknown BKIsaac CAIN WILLIE [facility] Current PHONE: Unknown Hayes Pe[facility] 03/14/2015-Current PHONE: [phone] PATRICIA JACOBS Primary [facility] Current PHONE: Unknown ELFEGO ABBASI Primary Care Current PHONE: Unknown DOMENICA RÍOS Primary [facility] Current PHONE: Unknown JAZZ VALLADARES Primary [facility] Current PHONE: Unknown Patricia Jacobs [facility] Current PHONE: Unknown [facility] 04/14/2015-Current [facility] PHONE: [phone] CAROL DOE Primary Care Current PHONE: [phone] Vel has no Care Guidelines for this patient. Care History Substance Use/Overdose 03/06/2019 [facility] Client and refusing detox - \T\quot;it doesn\T\#39;t work\T\quot;.\T\ nbsp; Provided with Peer Support information for [facility], local programs.\T\nbsp; Please contact Niko at [phone] if client comes into ER.\T\nbsp; Will re-attempt to engage in services. Medical/Surgical 03/05/2019 [facility] - DUE TO PATIENT COMPLEX HEALTH AND MENTAL HEALTH HISTORY-[facility] REFERRAL WAS MADE FOR FURTHER COMPLEX CASE MANAGEMENT FOR PHYSICAL AND MENTAL HEALTH NEEDS. Km VISIT COUNT (12 MO.) 2 [facility] [address] [facility] 1 [facility] 8 [facility] [place] TOTAL 17 NOTE: Visits indicate total known visits. ED/UCC VISIT TRACKING (12 MO.) 08/01/2019 12:37 [place] TYPE: Emergency COMPLAINT: - ETOH WITHDRAWAL 07/29/2019 13:03 Sa[place]l [place] TYPE: Emergency DIAGNOSES: - Chest Pain - Other chest pain - Alcohol abuse, uncomplicated - Gastro-esophageal reflux disease without esophagitis - cough - Patient's other noncompliance with medication regimen - Epigastric pain - Alcohol Intoxication 07/19/2019 10:55 Ted [place] TYPE: Emergency DIAGNOSES: - Drug Overdose - Alcohol Intoxication - Poisoning by unspecified drugs, medicaments and biological gregg - Poisoning by selective serotonin reuptake inhibitors, acciden - Back pain 05/27/2019 09:52 Ted [place] TYPE: Emergency DIAGNOSES: - Alcohol Problem - Overdose - Alcohol use, unspecified with intoxication, unspecified - Hematemesis - Poisoning by benzodiazepines, accidental (unintentional), ini - Drug Overdose 04/17/2019 08:03 [place] TYPE: Emergency COMPLAINT: - CHEST PAIN DIAGNOSES: - Allergy status to sulfonamides status - 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 - Gastro-esophageal reflux disease without esophagitis - Chronic obstructive pulmonary disease, unspecified - Anxiety disorder, unspecified - Chest pain, unspecified - Nicotine dependence, unspecified, uncomplicated - Gastritis, unspecified, with bleeding - Allergy status to other antibiotic agents status - Major depressive disorder, single episode, unspecified 04/13/2019 21:22 [facility] [place] TYPE: Emergency DIAGNOSES: - Alcohol Intoxication - Suicidal ideations - Alcohol use, unspecified with intoxication, uncomplicated 04/12/2019 18:03 [place] TYPE: Emergency COMPLAINT: - BREATHING CONCERNS DIAGNOSES: - Shortness of breath - Chronic obstructive pulmonary disease with (acute) exacerbati - Nicotine dependence, unspecified, uncomplicated - Major depressive disorder, single episode, unspecified - Low back pain - Other chronic pain - Allergy status to sulfonamides status - Anxiety disorder, unspecified 04/12/2019 17:01 [facility] [place] TYPE: Emergency DIAGNOSES: - SHORTNESS OF BREATH 03/05/2019 01:56 [facility] [place] TYPE: Emergency DIAGNOSES: - Other psychoactive substance abuse, uncomplicated - INTOXICATED 03/04/2019 13:[address] [facility] [place] TYPE: Emergency COMPLAINT: - URINATION PROBLEMS DIAGNOSES: - Allergy status to sulfonamides status - Retention of urine, unspecified - Alcohol abuse, uncomplicated - Nicotine dependence, unspecified, uncomplicated - Urinary tract infection, site not specified 03/01/2019 23:16 [facility] [place] TYPE: Emergency DIAGNOSES: - OVERDOSE 02/27/2019 20:22 [facility]. TYPE: Emergency COMPLAINT: - Abdominal Pain DIAGNOSES: - Retention of urine, unspecified - Alcohol use, unspecified with intoxication, uncomplicated - Unspecified abdominal pain - Abdominal Pain 2019 17:47 [facility] [place] TYPE: Emergency DIAGNOSES: - Poisoning by unspecified narcotics, intentional self-harm, in - overdose - Alcohol use, unspecified with intoxication, uncomplicated 01/14/2019 22:13 [place] TYPE: Emergency COMPLAINT: - ABDOMINAL PAIN DIAGNOSES: - Anxiety disorder, unspecified - 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 - Major depressive disorder, single episode, unspecified - Generalized abdominal pain - Diverticulosis of intestine, part unspecified, without perfor - Nicotine dependence, unspecified, uncomplicated - Gastro-esophageal reflux disease without esophagitis - Allergy status to sulfonamides status 01/10/2019 10:03 [facility] [place] TYPE: Emergency DIAGNOSES: - VOMITING BLOOD 10/20/2018 15:52 [facility] [place] TYPE: Emergency DIAGNOSES: - Alcoholic gastritis without bleeding - Alcohol abuse, uncomplicated - Alcohol dependence with withdrawal, uncomplicated - ABD PAIN 10/19/2018 15:58 [facility] [place] TYPE: Emergency DIAGNOSES: - Alcohol use, unspecified with intoxication, uncomplicated - DEHYDRATION INPATIENT VISIT TRACKING (12 MO.) 05/27/2019 09:52 Ted [place] TYPE: Pediatrics DIAGNOSES: - Alcohol abuse, uncomplicated - Simple chronic bronchitis - Poisoning by benzodiazepines, accidental (unintentional), ini - Unspecified mood [affective] disorder - Alcohol dependence with withdrawal, unspecified - Gastro-esophageal reflux disease without esophagitis - Alcohol use, unspecified with intoxication, unspecified - Alcohol use, unspecified with intoxication, uncomplicated - Nausea with vomiting, unspecified [email or web address]
[2019-08-01] MEDS ORDERED: VENLAFAXINE HCL25 MG PO (14:23)
[2019-08-01] MEDS ORDERED: ATROVENT HFA12.9 GM INH (14:24)
[2019-08-01] MEDS ORDERED: CHLORDIAZEPOXID10 MG PO (14:26)
[2019-08-01] MEDS ORDERED: CHLORDIAZEPOXID25 MG PO (16:19)
--- NOTE | 2019-08-01 17:18 | NUR ---
REPORT RECEIVED FROM DUGLAS ARELLANO. PENDING PATIENT ARRIVAL.
--- NOTE | 2019-08-01 17:45 | NUR ---
PATIENT ADMITTED TO CCU ROOM 129 AROUND 1720. PT PULLED OVER TO CCU BED. PT VERY PAINFUL EVERYWHERE, AND STATES, "I HAVE PAIN ALL OVER, THAT'S WHY I DRINK." ALCOHOL ON PATIENT'S BREATH. PATIENT ASKS IF SHE IS STILL IN [place] OR NOT, AND BECOMES TEARFUL EASILY. PATIENT STATES SHE HAS BEEN A HEAVY DRINKER FOR 40+ YEARS, AND CURRRENTLY IS DRINKING ABOUT A FIFTH OF WHISKY/DAY. HR IN THE 100-110s. MO ORIENTED TO ROOM AND CALL LIGHT, ASKED TO CALL BEFORE TRYING TO GET UP OUT OF BED. OXYGEN TITRATED DOWN TO OFF, AND SP02 STILL 99-100% CURRENLY. PERSONAL BELONGINGS IN ROOM IN CLOSET. NO TREMORS NOTED. PT ASKING IF HER MOM CAN COME SEE HER AND PT INFORMED OF CURRENT VISITOR POLICY. HOME MEDICATIONS WILL BE LOCKED IN SAFE TOMORROW AFTER PHARMACY REVIEWS THEM-DISCUSSED WITH PHARMACIST ON SHIFT.
--- NOTE | 2019-08-01 18:55 | NUR ---
PATIENT EATING CLEAR LIQUID TRAY AND TOLERATING WELL. DISCUSSED PLAN OF CARE WITH DR. HATCH - RNs TO LET HIM KNOW WHEN AND IF PAITENT STARTS TO SHOW WITHDRAWAL SIGNS. CIWA 0 AT THIS TIME.
--- NOTE | 2019-08-01 19:17 | NUR ---
PATIENT NAUESOUS AFTER EATING AND MOVING TO VOID. PT GIVEN ZOFRAN. SEE EMAR. PT ALSO C/O 10/09 PAIN "EVERYWHERE" AND IS NOTED TO BE GRIMACING. NO PAIN MEDICATIONS ORDERED AT THIS TIME. WILL DISCUSS WITH BANJO REPAIR PERSON RNs.
--- NOTE | 2019-08-01 19:37 | NUR ---
SHIFT REPORT RECEIVED. PATIENT RESTING IN BED. REPORTS SOME GI UPSET WITH SOME GAS. AND STATES "IT FEELS LIKE MY HEART IS ABOUT TO JUMP OUT OF MY CHEST". PATIENT REPORTS FEELING ANXIOUS AT THIS TIME. RT IN FOR TREATMENTS. ENCOURAGED PATIENT TO TRY AND RELAX AND FOCUS ON HER BREATHING. PATIENT APPEARS MILDLY ANXIOUS.
--- NOTE | 2019-08-01 19:53 | NUR ---
PATIENT'S CIWA 12. REPORTS FEELING EARLY SYMPTOMS OF WITHDRAWL SIMILAR TO PREVIOUS EXPERIENCES. REPORTED TO .
--- NOTE | 2019-08-01 20:15 | NUR ---
PATIENT USED CALL LIGHT. REQUEST ASSISTANCE UP TO BSC. PATIENT APPEARS PAINFUL WITH MOVEMENT, LOCALIZED TO HER ABD. PATIENT HAD LARGE AMOUNT OF SEMI FORMED BM AND SMALL AMOUNT OF URINE. IV BOLUS STARTED PER ORDERS. IV SITE WNL. PATIENT REPORTS NAUSEA, PRN ZOFRAN PROVIDED WITH SCHEDULED PHENOBARBITOL. PATIENT HAS HAD THESE MEDS BEFORE AND IS EDUCATED ON THEIR USE. PATIENT'S HR ELEVATED TO 145 WITH ACTIVITY, MD AWARE. VS STABLE. ORAL TEMP 99.4F. PATIENT DOES NOT FEEL CHILLED OR FEVERISH. BRUISING NOTED ON RIGHT RIBS/BACK AND LEFT LEG. PATIENT REPORTS THAT HER HUSBANDS WITNESSED HER HAVE A SEIZURE ON TUESDAY AND FALL BETWEEN HER BAD AND THE WALL. PATIENT HAS HAD SEIZURES WHEN ATTEMPTING TO DETOX IN THE PAST. PATIENT'S LUNG SOUNDS ARE CLEAR. OCCATIONAL DRY COUGH WHICH IS CHRONIC FOR HER. TOLERATING ROOM AIR. MDI PER RT. ABD IS MODERATELY DISTENDED, MORE THAN NORMAL PER THE PATIENT. ABD IS TENDER, WITH ACTIVE BOWEL SOUNDS.
--- NOTE | 2019-08-01 21:19 | NUR ---
PATIENT REPORTS "EVIL VOICE" FROM THE IV PUMP. SHE IS AWARE IT IS THE MACHINE, HOWEVER SHE SAYS THAT IS IT DIFFICULT TO IGNORE AND SOUNDS FRIGHTENING. CIWA SCORE 11. SECOND DOSE PHENOBARBITOL ORDERED PER .
--- NOTE | 2019-08-01 22:04 | NUR ---
IN TO SEE THE PATIENT.
--- NOTE | 2019-08-01 22:28 | NUR ---
PATIENT UP TO BSC. PATIENT HAD MEDIUM LOOSE STOOL. FEELS THE NEED TO VOID BUT WAS UNABLE TO VOID AFTER SEVERAL MINS. BLADDER SCAN 421 MLS. PATIENT REPORTS HAVING DIFFICULTY AT TIMES AND VOIDS LARGE AMOUNTS. ASSISTED PATIENT INTO BED. IV ABX STARTED PER ORDER. PATIENT CONTINUES TO HAVE CIWA 11. ABLE TO REST AT THIS TIME.
--- NOTE | 2019-08-01 23:46 | NUR ---
2330 [place] [facility] [place] 10 [place]. ABLE TO HAVE ANOTHER BM BUT DID NOT VOID. PATIENT FEELS NEED TO VOID. CIWA 12. PATIENT HAS BEEN RESTING IN BED. BUT UNABLE TO SLEEP DUE TO HER SYMPTOMS. BLADDER SCAN 490MLS. PATIENT HAS BEEN DRINKING PLENTY OF FLUIDS AND IV FLUIDS INFUSING. DISCUSSED IDEA OF OJEDA OR STRAIGHT CATH WHICH PATIENT IS AGREEABLE TO. 2340 PROVIDED 2 MG PO ATIVAN. PATIENT WILL ATTEMPT TO VOID IN 1 HOUR WHEN CIWA REASSESSED.
--- NOTE | 2019-08-02 00:30 | NUR ---
DISCUSSED PATIENT'S INABILITY TO VOID WITH MD. ORDERS FOR OJEDA RECEIVED.
--- NOTE | 2019-08-02 01:56 | NUR ---
0145 OJEDA PLACED. 550 MIGUELINA COLOR URINE NOTED. PATIENT FELT A SMALL AMOUNT OF RELIEF. REPORTS ONGOING PAIN IN ABD. 5MG OXY AND BENADRYL PROVIDED. PATIENT APPEARS CALM AT THIS TIME. CIWA REMAINS 12.
--- NOTE | 2019-08-02 03:00 | NUR ---
PATIENT APPEARS TO BE SLEEPING SOUNDLY. PERIODS OF APNEA NOTED WITH DESAT TO 80'S. 1L NC PLACED.
--- NOTE | 2019-08-02 04:30 | NUR ---
PATIENT CONTINUES TO SLEEP SOUNDLY. REPORTS SOME PAIN, IMPROVED WITH REPOSITIONING. CIWA 11. PATIENT DOES NOT APPEAR TO NEED PRN ATIVAN SHE IS ABLE TO REST. IV FLUIDS PER ORDER. SITE WNL.
--- NOTE | 2019-08-02 06:30 | NUR ---
PATIENT UP TO THE RECLINER. HAVING INCREASED PAIN IN HER BACK AND SOME IN HER ABD. PRN OXY PROVIDED. URINE OUTPUT ONLY 150 MLS FOR LAST 4 HOURS. APPEARS CONCENTRATED. CIWA 9. IV FLUIDS PER ORDER, SITE WNL. VS STABLE.
--- NOTE | 2019-08-02 07:14 | NUR ---
DISCUSSED PATIENT'S LABS AND URINE OUTPUT WITH MD. NEW ORDERS RECEIVED.
--- NOTE | 2019-08-02 07:30 | NUR ---
PATIENT SHIFT REPORT RECIEVED FROM TOBACCO GRADER RN. PATIENT RESTING IN BED AT THIS TIME AND IS CALLING APPROPRIATELY. NO OTHER NEEDS AT THIS TIME. CALL LIGHT IN REACH. WILL CONTINUE TO CLOSELY MONITOR.
--- NOTE | 2019-08-02 09:00 | NUR ---
PLACED PT IV IN RT. WRIST. PT TOLERATED WELL. LEFT PT IN BED WITH CALL LIGHT.
--- NOTE | 2019-08-02 09:30 | NUR ---
SPOKE WITH PATIENT IN ROOM. PATIENT VERY DROWSY, SHE IS ORIENTED EXCEPT FOR DATE. PATIENT FALLS ASLEEP MANY TIMES WHILE ANSWERING QUESTIONS. PATIENT LIVES WITH IN [place] . SHE STATES THEY ARE CAMP [employer], BUT THE [place]AMP [employer] ARE CLOSED DUE TO VIRUS AND SO THEY AREN'T RIGHT NOW. SHE STATES THE RV IS "GETTING FIXED" SO HER IS STILL WITH IT IN [place]. SHE STATES SHE CAME HERE FOR "DETOX CENTER". SHE DENIES USING ANY MEDICAL EQUIPMENT NORMALLY. SHE IS UNSURE IF SHE IS GOING BACK TO DETOX AT DISCHARGE, SHE STATES IF NOT SHE IS GOING TO GO HOME WITH A DAUGHTER TO [place]. SHE STATES SHE HAS PCP IN [place], [facility]. HAD TO WAKE PATIENT UP MULTIPLE TIMES TO GET THIS INFORMATION. WILL CONTINUE TO FOLLOW.
--- NOTE | 2019-08-02 09:43 | NUR ---
Assisted pt to commode after vitals with call light and directed to call me when she is finished. Emptied carter and entered amount
--- NOTE | 2019-08-02 10:00 | NUR ---
PATIENT RESTING IN BED. PATIENT ASSESSMENT COMPLETED. PATIENT ALERT AND ORIENTED, BUT SLIGHTLY DROWSY. MD SOLOMON IN TO SEE PATIENT. PATIENT AGREEABLE TO PLAN OF CARE TO GO TO SURGERY THIS AFTERNOON. PATIENT HAS TENDERNESS WITH PALPITATION TO THE ABD. OJEDA CATHETER IN PLACE. NO OTHER NEEDS AT THIS TIME. WILL CONTINUE TO CLOSELY MONITOR.
--- NOTE | 2019-08-02 11:17 | NUR ---
PT. APPEARED TO BE SLEEPING. EMPTIED CATHETER AND ADMINISTERED IV MEDS. LEFT PT. ASLEEP IN BED WITH CALL LIGHT.
--- NOTE | 2019-08-02 11:25 | NUR ---
MD CALLED TO UPDATE THAT SURGERY TIME WILL BE MOVED TO 1400. PER MD TYPE AND SCREEN PATIENT FOR 2 UNITS PRBC AND KEEP ON HOLD FOR PATIENT. LABS ADDED PER MD. NO OTHER NEEDS AT THIS TIME. UPDATED REGARDING POTASSIUM REPLACEMENT. MD IS OKAY WITH CURRENT ORDERES. WILL CONTINUE TO CLOSELY MONITOR.
--- NOTE | 2019-08-02 12:08 | NUR ---
EMPTIED OJEDA. MIGUELINA, CLEAR, CONCENTRATED IN APPEARANCE. PT RESTING IN BED WITH CALL LIGHT IN REACH.
--- NOTE | 2019-08-02 12:46 | NUR ---
ANSWERED CALL LIGHT. ASSISTED PT TO CAMMODE. LEFT WITH CALL LIGHT IN REACH AND DIRECTED TO CALL WHEN DONE.
--- NOTE | 2019-08-02 13:23 | NUR ---
MICKI RN HERE TO TAKE PATIENT TO SURGERY. ALL QUESTIONS ANSWERED. PATIENT DENIES ANY NEEDS AT THIS TIME.
--- NOTE | 2019-08-02 14:55 | NUR ---
PT IS SCHEDULED FOR LUCILA SURGERY. PT HAS BEEN GIVEN PAIN MEDS, DROWSY BUT WORKING HARD TO STAY AWAKE. PT REQUESTED PRAYER
--- NOTE | 2019-08-02 15:57 | NUR ---
CALLED AND TALKED WITH PACU NURSE. PATIENT IS STILL IN SURGERY AT THIS TIME. NO OTHER UPDATES.
--- NOTE | 2019-08-02 16:30 | NUR ---
08/02/19 1630 Dea Rahman 1615-PT ARRIVES TO PACU ON 6 L VIA MASK. SATS 100%. MARIAM RN AT [facility] TO HOLD AIRWAY. FOGGING IN MASK PRESENT WITH JAW THRUST. ORAL AIRWAY REMAINS IN PLACE. DRESSING AROUND DRAIN SITE OOZING IRRIGATION WITH SLIGHT RED COLOR. DRESSING CHANGED PER MD ORDERS. DULCE DRAIN DRAINING. PT NON RESPONSIVE TO VERBAL STIMULUS. 1625-PT OPENS EYES AND REMOVES ORAL AIRWAY BY HERSELF. PT REPORTS "MY STOMACH HURTS" O2 CONTINUED VIA MASK. PT COUGHS AND DEEP BREATHES WHEN INSTRUCTED. PILLOW GIVEN TO SPLINT.
--- NOTE | 2019-08-02 17:10 | NUR ---
PATIENT ARRIVED BACK FROM PACU AT 1705. PATIENT IS ALERT AND HAVING SOME PAIN. PATIENT RECIEVED FENTANYL PRIOR TO TRANSFER. PATIENT IS NOTED TO HAVE A LOT OF OOZING FROM THE SITE. MD SOLOMON IS AWARE PER REPORT FROM PACU. NO OTHER NEEDS AT THIS TIME. WILL CONTINUE TO CLOSELY MONITOR.
--- NOTE | 2019-08-02 17:47 | NUR ---
CHANGED WOUND DRESSING WITH GAUZE, ADDOMINAL PAD, AND FOAM TAPE. CHANGED GOWN AND BEDDING. PATIENT RESTING WITH EYES CLOSED AND REPORTS PAIN. LEFT RESTING IN BED WITH CALL LIGHT AND 2 RAILS UP.
--- NOTE | 2019-08-02 18:47 | NUR ---
PT. REPORTED PAIN. ADMINISTERED MORPHINE AND CHANGED PT. OJEDA. PT. LEFT RESTING IN BED WITH CALL LIGHT NEARBY.
--- NOTE | 2019-08-02 19:00 | NUR ---
patient resting well at this time. morphine prn was given for pain 01/09. patient states pain is better after prn pain medications. patient denies any needs at this time. will continue to closely monitor.
--- NOTE | 2019-08-02 19:15 | NUR ---
PT REPORT RECIEVED. CARE FOR PATIENT ASSUMED AT THIS TIME.
--- NOTE | 2019-08-02 20:30 | NUR ---
INITIAL ASSESSMENT COMPLETED. PT COMPLAINS OF 6/10 PAIN AT INCISION SITE. DRESSING SATURATED WITH SEROSANGINOUS FLUID. DULCE DRAIN CONTINUES TO PRODUCE LARGE AMOUNTS OF OUTPUT. PT DENIES NAUSEA AND STATES HEADACHE IS 3/10. MILD VISIBLE TREMOR NOTED. PT ALERT AND ORIENTED, UNDERSTANDS PLAN OF CARE. CALL LIGHT WITHIN REACH. WILL CLOSELY MONITOR FOR SIGNS OF WITHDRAWAL AND PAIN.
--- NOTE | 2019-08-02 22:15 | NUR ---
IN ROOM FOR MEDICATION ADMINISTRATION. PT HAS INCREASED TREMORS, IS DIAPHORETIC, AND STATES SHE HAS A "CLOUDY FEELING" WHEN SHE CLOSES HER EYES. CWA SCORE OF 11. PRN ATIVAN ADMINISTERED (SEE EMAR). PT STATES HER INCISION SITE PAIN HAS DECREASED TO 4/10. CALL LIGHT WITHIN REACH. WILL CONTINUE TO MONITOR FOR WORSENING SIGNS OF WITHDRAWAL.
--- NOTE | 2019-08-02 23:00 | NUR ---
PT RESTING WITH HER EYES CLOSED. BREATHING EVEN AND UNLABORED RR=16. IV FLUIDS INFUSING. NO TREMOR NOTED AT REST.
--- NOTE | 2019-08-02 23:41 | NUR ---
PT AWOKE, STATES SHE IS SEEING BUGS ON THE [place], TREMOR NOTED IN RIGHT HAND PRIMARILY. PT ALSO REPORTS PAIN AT INCISION SITE IS 8/10. ASSESSMENT COMPLETED AT THIS TIME. PRN MEDICATION FOR CIWA GREATER THAN 8 GIVEN (SEE EMAR). ASSSISTED PT WITH REPOSITIONING. WILL REASSESS NEEDED.
--- NOTE | 2019-08-03 00:04 | NUR ---
DURING ASSESSMENT, DRESSING AT INCISION SITE FOUND TO BE COMPLETELY SATURATED WITH SEROSAGUINOUS FLUID AND LEAKING OUT SIDE. DRESSING CHANGED AT THIS TIME. WELL TOLERATED BY PT.
--- NOTE | 2019-08-03 01:48 | NUR ---
Pt. was awake and laying in bed. Stated that her pain was beginning to come back and pointed towards the right side of her abdomen. When assessed via CWA patient scored a 3. She had no no signs of anxiety and looked tired when assessed. Pt. was left with rails up, bed in lowest position, and call light in reach.
--- NOTE | 2019-08-03 01:53 | NUR ---
PT GIVEN PRN PAIN MEDICATION FOR INCISION PAIN SHE RATES 8/10 (SEE EMAR).
--- NOTE | 2019-08-03 02:26 | NUR ---
PT RESTING WITH EYES CLOSED, BREATHING EVEN AND UNLABORED. RR=13. HEART RATE DECREASED 105 BPM. CALL LIGHT AND PERSONAL BELONGINGS WITHIN REACH. NO FURTHER NEEDS AT THIS TIME.
--- NOTE | 2019-08-03 04:45 | NUR ---
PT UP TO BSC WITH TWO PERSON ASSIST. STEADY ON FEET. PT HAD LIQUID BM. BACK IN BED. COMPLAINS OF PAIN PRN MEDICATION GIVEN FOR INCISIONAL PAIN SHE RATES 9/10 (SEE EMAR). ASSESSMENT COMPLETED. MINIMAL DRAINAGE NOTED FROM DULCE SITE. DRESSING REMAINS CLEAN DRY AND INTACT. CALL LIGHT WITHIN REACH, NO FURTHER NEEDS AT THIS TIME.
--- NOTE | 2019-08-03 05:59 | NUR ---
PT BACK UP TO BSC. ONE PERSON ASSIST ONLY REQUIRED. PT BACK IN BED, CALL LIGHT WITHIN REACH. NO FURTHER NEEDS AT THIS TIME.
--- NOTE | 2019-08-03 07:27 | NUR ---
Pt sleeping. Spoke with Rn. Surgery was completed yesterday. Doing well.
--- NOTE | 2019-08-03 07:30 | NUR ---
PATIENT SHIFT REPORT RECIEVED FROM RAILROAD CONDUCTOR RN. PATIENT RESTING IN BED AT THIS TIME. PATIENT CALLS APPROPRIATELY. WILL CONTINUE TO CLOSELY MONITOR.
--- NOTE | 2019-08-03 08:10 | NUR ---
THIS RN IN THE ROOM. PATIENT STATED HER PAIN IS 12/10. GAVE PRN MORPHINE TO HELP WITH PAIN CONTROL. PATIENT TOLERATED WELL. WILL GIVE OXYCODONE WHEN DO TO HELP CONTROL PAIN BETTER. WILL CONTINUE TO CLOSELY MONTIOR.
--- NOTE | 2019-08-03 10:00 | NUR ---
PT GIVEN A BED BATH. PT TOLERATED WELL. RETAPED RT. IV SITE DRESSING SINCE EDGE WAS LIFTED. PT. FOUND CRYING AFTER SPEAKING WITH FAMILY MEMBER. PT STATED SHE WAS FINE. PT LEFT RESTING IN BED WITH CALL LIGHT NEARBY.
--- NOTE | 2019-08-03 10:30 | NUR ---
PATIENT PAIN MORE CONTROLLED NOW WITH INCREASING PAIN MEDICATIONS THIS AM. PATIENT TOLERATING WELL. STUDENT NURSES IN AND OUT THIS AM TO HELP WITH AM CARES. TALKED WITH MARJ TO UPDATE ABOUT DETOX PLANS PER PATIENTS REQUEST. WILL CONTINUE TO CLOSELY MONITOR.
--- NOTE | 2019-08-03 11:30 | NUR ---
PATIENT CATHETER REMOVED WITH NO ISSUES. PATIENT TOLERATED WELL. LUNCH ORDERED. GAVE PRN ATIVAN FOR SOME INCREASED ANXIETY D/T DISCHARGE PLANS. PATIENT NOTED TO HAVE SOME MINOR TREMORS WELL. WILL CONTINUE TO CLOSELY MONITOR.
--- NOTE | 2019-08-03 11:52 | NUR ---
PT SITTING AT SIDE OF BED. COMPLETED VITALS AND ASSESSMENT. PT STATED SHE WAS ANXIOUS DUE TO WITHDRAWAL AND FAMILY SITUATION AND SHE WOULD CONTACT MOTHER TO BRING CLOTHING.
--- NOTE | 2019-08-03 12:25 | NUR ---
GAVE 1MG ATIVAN IV. MD MAMIE GRAYSONED. MD HATCH IN TO TALK TO PATIENT ABOUT DISCHARGE PLANS. PATIENT AGREEABLE TO PLANS TO DISCHARGE. WILL CONTINUE TO CLOSELY MONITOR.
[2019-08-03] MEDS ORDERED: TYLENOL325 M1 PO (12:39)
[2019-08-03] MEDS ORDERED: OXYCODONE HCL5 MG PO (12:40)
[2019-08-03] MEDS ORDERED: VITAMIN B-1100 M1 PO (12:40)
[2019-08-03] MEDS ORDERED: THERA TABLET400 MCG PO (12:41)
[2019-08-03] MEDS ORDERED: IBUPROFEN400 MG PO (12:44)
--- NOTE | 2019-08-03 14:00 | NUR ---
PATIENT DISCHARGE INSTRUCTIONS GIVEN TO PATIENT AND REVIEWED. PATIENT IS ABLE TO REPEAT INFORMATION BACK TO STAFF. ALL EDUCATION, BELONGINGS, AND HOME MEDICATIONS SENT WITH PATIENT. PATIENT IVS DCD. PATIENT BROUGHT TO THE FRONT VIA WHEELCHAIR AND ASSISTED INTO CAR WITH HER MOTHER. GAVE SCRIPTS TO PATIENT. NO FURTHER QUESTIONS ON DISCHARGE. PATIENTS PLAN IS TO HEAD TO THE DETOX FACILITY AND HAS A BED SAVED THERE PER [facility] [employer].
--- NOTE | 2019-08-06 14:41 | PATH ---
[facility] [address] [place] [address] Signed SPECIMEN(S): A GALLBLADDER SPECIMEN SOURCE: A. GALLBLADDER tro CLINICAL HISTORY: Acute cholecystitis. FINAL PATHOLOGIC DIAGNOSIS: Gallbladder, cholecystectomy: - Chronic cholecystitis. NAL:cml:C2NR MICROSCOPIC EXAMINATION: Histologic sections of all submitted blocks are examined by light microscopy. These findings, together with the gross examination, support the pathologic diagnosis. GROSS DESCRIPTION: The specimen, labeled "RB," and designated on the requisition "gallbladder," is received in formalin and consists of Specimen: Previously opened gallbladder. Dimensions: 7.2 cm in length and 4.5 cm in inner circumference. Serosa: [place]schmitz and covered with fibromembranous tissue. It shows two stitches that close transmural defects. Cystic Duct: Unobstructed. Calculi: No calculi are grossly identified within the container. Mucosa: [place]z and velvety. Wall thickness: 0.2 cm. Lymph node: No pericystic lymph nodes are grossly identified. Additional: None. Alarm Mechanism Adjuster sections are submitted in cassette (A1). JS (under the direct supervision of a pathologist) The Gross Description was prepared using a voice recognition system. The report was reviewed for accuracy; however, sound-alike word errors, addition and/or deletions may occur. If there is any question about this report, please contact Client Services. PERFORMING LABORATORY: The technical component was performed by [employer], Hetal Huff, PATIENT NAME: ROSS BUTCHER PATHOLOGY DATE OF : 65 REPORT #: [id number] PHYSICIAN: DARLEEN MARTINEZ PCP: LAURA LANDRUM PA-C REPORT IS CONFIDENTIAL AND NOT TO BE RELEASED WITHOUT AUTHORIZATION [facility] [address] [place], [place] [address] [place] [address] (Grain Buyer: Tiffanie Soliz MD; CLIA# [id number]). [facility], [address] [address] (CLIA# [id number]). Diagnostician: Alannah Ta MD Pathologist Electronically Signed 08/06/2019 Copies: ~ PATIENT NAME: ROSS BUTCHER PATHOLOGY DATE OF : 65 REPORT #: [id number] PHYSICIAN: DARLEEN MARTINEZ PCP: LAURA LANDRUM PA-C REPORT IS CONFIDENTIAL AND NOT TO BE RELEASED WITHOUT AUTHORIZATION
== END 2019-08-03 14:00 | disposition home or self-care (01) | DRG 417 ==
LOC: ED 12:36 → CCU 16:57
PROVIDERS: Surgery; ADMIT Student in an Organized Health Care Education/Training Program
PROC: BF101ZZ Fluoroscopy of Bile Ducts using Low Osmolar Contrast (ICD-10-PCS; 2019-08-02)
PROC: 0FT44ZZ Resection of Gallbladder, Percutaneous Endoscopic Approach (ICD-10-PCS; principal; 2019-08-02 13:00)
DX: K81.0 Acute cholecystitis (principal); G92 Toxic encephalopathy; K82.1 Hydrops of gallbladder; F10.129 Alcohol abuse with intoxication, unspecified; T42.4X5A Adverse effect of benzodiazepines, initial encounter; E87.6 Hypokalemia; K70.10 Alcoholic hepatitis without ascites; F17.200 Nicotine dependence, unspecified, uncomplicated; F39 Unspecified mood [affective] disorder; J44.9 Chronic obstructive pulmonary disease, unspecified; K76.0 Fatty (change of) liver, not elsewhere classified; E66.9 Obesity, unspecified; K21.9 Gastro-esophageal reflux disease without esophagitis; D69.6 Thrombocytopenia, unspecified; Z79.899 Other long term (current) drug therapy; Z88.2 Allergy status to sulfonamides; Z88.1 Allergy status to other antibiotic agents; Z68.30 Body mass index [BMI] 30.0-30.9, adult
CPT/HCPCS: 00790; 36415; 70450; 74300; 76705; 80053; 81001; 82140; 82247; 82465; 83605; 83615; 83735; 84100; 84478; 84550; 85025; 85610; 86850; 86900; 86901; 86920; 94640; 96361; 96374; 99285-25; G0480; J0330; J1100; J1650; J1885; J2060; J2250; J2270; J2405; J2543; J2560; J2704; J2765; J3010; J3430; J3475; J3480; J7030; J7060; J7121; Q9967